=== PATIENT | male | born 1930 | race Caucasian/White ===

== ENCOUNTER → 2016-11-11 | Outpatient (REF) | payer MEDICARE, OTHER ==
[~2016-11-11] MED LIST: /ESOM40CA; /GLYB5TA; ACET30TAB PO; ACET65TA; ASPI81TA83; ASPI81TA85 PO; CLARINEX; CVS20TAB PO; DIAB5TAB; GLIP2.5T2 PO; GLUC500T; GLYB2.5T6; HYDR12.55 PO; HYDR25TA6; IMOD2TAB14 PO; JANU100T PO; K-TA1TAB PO; NITR4TASL SL; POTA20TA2; PRED10TA2; PROA1AER INH; SIMV20TA2; SIMV40TA2 PO; VITA500C
== END ==
LOC: M SFHCPLAZ 11:42
PROVIDERS: ATTEND Internal Medicine
DX: I10 Essential (primary) hypertension (principal); E11.9 Type 2 diabetes mellitus without complications; E78.00 Pure hypercholesterolemia, unspecified; Z53.8 Procedure and treatment not carried out for other reasons

== ENCOUNTER → 2016-11-21 | Outpatient (REF) | payer MEDICARE, OTHER ==
[~2016-11-21] MED LIST changes: -IMOD2TAB14 PO; +IMOD2TAB16 PO
[2016-11-21 13:58] LABS: CALCIUM LEVEL 8.9 MG/DL (8.8-10.2); CREATININE FOR GFR 1.45 MG/DL (0.70-1.30); GLOMERULAR FILTRATION RATE 49.2 (>35); POTASSIUM SERUM 4.3 MEQ/L (3.5-5.1)
[2016-11-21 13:59] LABS: ALBUMIN 3.9 GM/DL (3.2-5.2); ALBUMIN/GLOBULIN RATIO 1.22 (1.00-1.93); TOTAL PROTEIN 7.1 GM/DL (6.4-8.2)
== END ==
LOC: M SFHCPLAZ 09:33
PROVIDERS: ATTEND Internal Medicine
DX: I10 Essential (primary) hypertension (principal); E11.9 Type 2 diabetes mellitus without complications; E78.00 Pure hypercholesterolemia, unspecified

== ENCOUNTER → 2016-12-12 | Outpatient (CLI) | payer MEDICARE, OTHER ==
--- NOTE | 2016-12-12 15:07 | REP ---
RENAL AND BLADDER ULTRASOUND: Real-time sonographic evaluation of kidneys performed. Both kidneys are normal in size and echotexture, right kidney measuring 10.4 x 4.2 x 4.6, and left kidney 10.5 x 4.9 x 4.9 cm. There is no hydronephrosis bilaterally. There are cysts in the right kidney, with two dominant simple cysts in the upper pole measuring 3.9 x 3.6 x 3.9 cm and 2.1 x 1.8 x 1.6 cm. Left kidney demonstrates a solid mass in the upper pole. There is internal blood flow with duplex Doppler evaluation. The mass measures 3.8 x 4.2 x 3.1 cm. There is an adjacent simple cyst 1.9 cm in diameter. There is a simple cyst in the lower pole of the left kidney, 1.1 cm in diameter. Urinary bladder has a volume of 84 mL with no gross mass or calculus. Bilateral ureteral jets are seen in the urinary bladder with Doppler color evaluation. IMPRESSION: No hydronephrosis. Bilateral renal cysts. Solid mass upper pole left kidney suspicious for renal cell carcinoma. Maximum diameter is 4.2 cm. Signed by Gumaro Warner MD 12/13/2016 09:24 A
== END ==
LOC: M RAD 13:53
PROVIDERS: ATTEND Psychiatry & Neurology Neurology
DX: N28.1 Cyst of kidney, acquired (principal)

== ENCOUNTER 2016-12-22 21:11 | Observation (INO) | payer MEDICARE, OTHER ==
[~2016-12-22] VITALS: Ht 180.3 cm; Wt 75.8 kg
[2016-12-22 22:43] LABS: BASO # 0.1 K/mm3 (0.0-0.2); BASO % 1.3 % (0.0-1.0); EOS # 0.1 K/mm3 (0.0-0.50); EOS % 1.7 % (0.0-3.0); LARGE UNSTAINED CELL # 0.2 K/mm3 (0.0-0.4); LARGE UNSTAINED CELL % 2.8 % (0.0-4.0); LYMPH # 0.8 K/mm3 (1.5-4.5); LYMPH % 10.1 % (24.0-44.0); MEAN CORPUSCULAR HEMOGLOBIN 31.9 pg (27.0-33.0); MEAN CORPUSCULAR HGB CONC 34.9 g/dl (32.0-36.5); MEAN CORPUSCULAR VOLUME 91.5 fl (80.0-96.0); MONO # 0.5 K/mm3 (0.0-0.8); MONO % 9.3 % (0.0-5.0); NEUTROPHILS # 4.4 K/mm3 (1.8-7.7); NEUTROPHILS % 74.8 % (36.0-66.0); PLATELET COUNT, AUTOMATED 223 k/mm3 (150-450); RED CELL DISTRIBUTION WIDTH 13.4 % (11.5-14.5); WHITE BLOOD COUNT 5.8 K/mm3 (4.0-10.0)
[2016-12-22 22:58] LABS: ALBUMIN 3.5 GM/DL (3.2-5.2); ALBUMIN/GLOBULIN RATIO 1.13 (1.00-1.93); BILIRUBIN,DIRECT 0.2 MG/DL (0.0-0.2); BILIRUBIN,TOTAL 0.8 MG/DL (0.2-1.0); CALCIUM LEVEL 8.5 MG/DL (8.8-10.2); CREATININE FOR GFR 1.41 MG/DL (0.70-1.30); GLOMERULAR FILTRATION RATE 50.9 (>35); POTASSIUM SERUM 4.3 MEQ/L (3.5-5.1); TOTAL PROTEIN 6.6 GM/DL (6.4-8.2)
[2016-12-23] MEDS ORDERED: OSELTAMIVIR PHOSPHATE 75 MG CAP (TAMIFLU) As Ordered ONE (01:42)
[2016-12-23] MEDS ORDERED: BISACODYL 5 MG TAB PO PRN (02:00)
[2016-12-23] MEDS ORDERED: ACETAMINOPHEN TAB 650MG DOSE (2X325MG) PO PRN (02:00)
[2016-12-23] MEDS ORDERED: ONDANSETRON 4MG/2ML VIAL (J2405) IV PRN (02:00)
[2016-12-23] MEDS ORDERED: DEXTROSE 50% 50 ML SYRINGE IV PRN (02:30)
[2016-12-23] MEDS ORDERED: GLUCOSE 4 GM CHEW TABLET PO PRN (02:30)
[2016-12-23] MEDS ORDERED: GLUCAGON FOR INJ 1 MG VIAL (J1610) SC PRN (02:30)
[2016-12-23] MEDS ORDERED: ACETAMINOPHEN TAB 650MG DOSE (2X325MG) As Ordered ONE (02:38)
--- NOTE | 2016-12-23 03:01 | HPE ---
DATE OF ADMISSION: 12/23/2016 PRIMARY CARE PHYSICIAN: Cholo Alvarez MD. INPATIENT HOSPITALIST ATTENDING: Tyshawn Allan MD. CHIEF COMPLAINT: "I couldn't walk. I was so weak." HISTORY OF PRESENTING ILLNESS: 86-year-old male, history of type 2 diabetes, hypertension, hypercholesterolemia, reflux, appendectomy, cholecystectomy, active cigar use with a pipe, presents to the emergency room with complaints of generalized weakness, recurrent falls since monday, dry cough, and fatigue. In the emergency room (ER), was found to have a low-grade temperature of 100.4, not orthostatic with glucose of 176.. Respiratory panel was positive for influenza. Hospitalist service was called for admission. He otherwise denies any chills. He has had some decrease in appetite. No nausea, vomiting, diarrhea, chest pain, pressure, tightness, lightheadedness, syncope. Denies dysuria, urgency, frequency. No weight loss. No lumps and bumps. No history of depression or anxiety. PAST MEDICAL HISTORY: 1. Hypertension. 2. Diabetes. 3. Hypercholesterolemia. 4. Reflux disease. 5. Chronic renal insufficiency, baseline creatinine of 1.4. PAST SURGICAL HISTORY: 1. Appendectomy. 2. Cholecystectomy. ALLERGIES: No known drug allergies. 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 Lives with . Has cigar use, active smoker. FAMILY HISTORY: Noncontributory due to age. The patient is DO NOT RESUSCITATE. Healthcare proxy is Carly Lindsay. REVIEW OF SYSTEMS: Per history of present illness (HPI). PHYSICAL EXAMINATION: VITAL SIGNS: Blood pressure 153/61, pulse 78, respiratory rate 18, temperature 100.4, 97% on room air, 75.75 kg. GENERAL: Patient is awake, alert, oriented to person, answering questions appropriately. Anicteric sclerae. No jaundice. No pallor. Speaks in full sentences, unlabored breathing. Speaks fluently. No respiratory distress or use of respiratory accessory muscles. Dry mucous membranes. No jugular venous distention, thyromegaly or cervical lymphadenopathy. LUNGS: Clear to auscultation. No wheezing, rales or rhonchi. HEART: S1, S2, sinus rhythm. ABDOMEN: Soft, nontender, nondistended. Positive bowel sounds. EXTREMITIES: No cyanosis, clubbing or pitting edema. Gait was not tested due to significant weakness. Motor function 5/5 times two bilateral upper extremities. Lower extremities deep tendon reflexes (DTRs) intact 4+ bilaterally. LABORATORY DATA: White count 5.8, hemoglobin 12, hematocrit 36, platelet count 223, 74% neutrophils. Lactic acid 1.3. Sodium 137, potassium 4.3, chloride 103, bicarbonate 29, BUN 10, creatinine 1.41, glucose 176, calcium 8.5, anion gap of 5. Urinalysis negative leukocyte esterase, nitrite, 3+ glucose, 1+ protein, yellow, clear, pure, 0 WBCs, negative bacteria, 1+ blood. RSV panel positive for influenza A H3. IMAGING STUDIES: Preliminary report no acute infiltrates, edema or effusion. ASSESSMENT AND PLAN: This is an 86-year-old male, history of diabetes, hypertension, hypercholesterolemia, reflux, appendectomy, cholecystectomy, active cigar use with a pipe, presents to the emergency room with complaints of generalized weakness, unsteady balance and recurrent falls at home since Monday, low-grade fever, dry cough, generalized weakness, presented to the emergency room, was found to have influenza A H3. Hospitalist service was called to admit. Patient will be assigned to Dr. Tyshawn Allan 7 a.m. on 12/23/2016. 1. Influenza A H3. Patient will be given Tamiflu 75 mg by mouth twice a day. Droplet isolation precautions. Strict hand washing. Full supportive care. Oxygen if saturations are below 87%. Intravenous fluids. Physical therapy evaluation, to be evaluated with fall precautions. 2. Generalized weakness and recurrent falls secondary to influenza. Treat underlying illness, physical therapy and full supportive care. Fall precautions. 3. Type 2 diabetes. Consistent carbohydrate diet. Insulin sliding scale before food, nightly, fingersticks. Hyperglycemic protocol. Check A1c in the morning. 4. Hyperlipidemia. Check lipid panel in the morning. Resume home medications. 5. Hypertension, controlled. Baseline creatinine is 1.4. May resume home dose of angiotensin-converting enzyme (MASON) inhibitor. 6. Abnormal EKG with chronic first-degree atrioventricular (AV) block, sinus rhythm, bigeminal pattern, ventricular rate of 76. Check magnesium. Replete as needed. 7. Active cigar use. Smoking cessation, counseling. 8. Chronic Renal failure stage 3, at baseline creatinine. monitor urine output, renally dose all medications, avoid nephrotoxins. Deep venous thrombosis (DVT) prophylaxis with Lovenox renal dosing. MTDD
--- NOTE | 2016-12-23 04:31 | EDDOCDS ---
Physician Documentation [facility] Name: Gt Lindsay Age: 86 yrs Sex: Male : 1930 Arrival Date: 12/22/2016 Time: 21:11 Bed 8 Private MD: Te Graham MD Disposition: 12/23/16 01:48 Hospitalization ordered by Mabel Bennett for Inpatient Admission. Preliminary diagnosis is Influenza due to identified novel influenza A virus. - Bed requested for 4 [place]. - Status is Inpatient Admission. cz - Condition is Stable. - Problem is new. - Symptoms have improved. Historical: - Allergies: no known allergies; - Home Meds: 1. aspirin 81 mg Oral TbEC 1 tab once daily 2. glipizide-metformin 2.5-500 mg oral tab 2 tabs 2 times per day 3. hydrochlorothiazide 25 mg Oral tab 0.5 tab once daily 4. Januvia 100 mg oral tab 0.5 tab once daily 5. omeprazole 20 mg Oral TbEC 2 cap daily 6. potassium chloride 20 mEq Oral TbER 1 tab 2 times per day 7. simvastatin 40 mg Oral tab 1 tab once daily - PMHx: Diabetes - NIDDM: controlled; GERD; Hypercholesterolemia; Hypertension; - PSHx: Appendectomy; Cholecystectomy; - Social history: Smoking status: Patient uses tobacco products, light tobacco smoker. No barriers to communication noted, Speaks appropriately for age. - Family history: Not pertinent. - : The pt / caregiver states he / she is not on anticoagulants. Home medication list is obtained from the patient. - Exposure Risk Screening:: None identified. Vital Signs: 12/22 21:14 BP 153 / 61; Pulse 78; Resp 18 S; Temp 100.4(O); Pulse Ox 97% on R/A; Weight 75.75 kg / gr2 167 lbs (R); Height 5 ft. 11 in. (180.34 cm) (R); Pain 5/10; 21:57 BP 158 / 70 Supine; Pulse 75; ko2 21:57 BP 166 / 74 Sitting; Pulse 88; ko2 21:57 BP 155 / 67 Standing; Pulse 78; ko2 22:05 Pulse 72 MON; ko2 22:06 BP 148 / 67 (auto/); ko2 22:20 Pulse 74 MON; ko2 22:21 BP 153 / 72 (auto/); ko2 22:51 BP 135 / 65 (auto/); ko2 22:51 Pulse 74 MON; Pulse Ox 98% ; ko2 23:05 Pulse 74 MON; Pulse Ox 96% ; ko2 23:06 BP 164 / 67 (auto/); ko2 23:35 Pulse 72 MON; ko2 23:36 BP 152 / 66 (auto/); ko2 23:50 Pulse 74 MON; ko2 23:51 BP 147 / 67 (auto/); ko2 12/23 00:05 Pulse 76 MON; ko2 00:06 BP 152 / 67 (auto/); ko2 00:21 BP 148 / 63 (auto/); ko2 00:21 Pulse 72 MON; ko2 00:51 BP 146 / 80 (auto/); ko2 00:51 Pulse 74 MON; ko2 01:06 BP 140 / 65 (auto/); ko2 01:06 Pulse 74 MON; ko2 01:21 BP 141 / 65 (auto/); ko2 01:21 Pulse 72 MON; ko2 01:36 BP 131 / 60 (auto/); ko2 01:36 Pulse 74 MON; ko2 01:50 Pulse 76 MON; ko2 01:51 BP 141 / 66 (auto/); ko2 02:33 BP 137 / 63; Pulse 78; Resp 16; Temp 101.5(O); Pulse Ox 94% on R/A; Pain 0/10; ko2 04:26 BP 125 / 78; Pulse 79; Resp 16; Temp 98.5(O); Pulse Ox 97% ; Pain 0/10; ko2 12/22 21:14 Body Mass Index 23.29 (75.75 kg, 180.34 cm) gr2 MDM: 12/22 21:45 -Blood Culture (Adults Only), peripheral from different site, or from device/port/PICC le etc. if present ordered. 21:45 Floor Coverings Salesperson/Pulse Ox/q 15 min VS ordered. le 21:45 IV Saline Lock ordered. le 21:45 Orthostatic VS ordered. le 21:46 -Blood Culture Ordered. EDMS 21:46 C Reactive Protein Ordered. EDMS 21:46 CBC with Diff Ordered. EDMS 21:46 Lactic Acid (Warner tube on ice) Ordered. EDMS 21:46 Liver Profile Ordered. EDMS 21:46 MED Profile Ordered. EDMS 21:46 Urinalysis Ordered. EDMS 21:46 Urine Culture Ordered. EDMS 21:47 ECG WITH READING ER PHYS+CARDIAG ordered. EDMS 21:48 Chest, 2 View (pa\E\lat) Ordered. EDMS 21:48 -Blood Culture (Adults Only), peripheral from different site, or from device/port/PICC kb5 etc. if present complete. 21:49 BLOOD CULTURES Ordered. EDMS 22:15 Financial registration complete. [email or web address] 22:15 [facility] Payment Agreement was scanned into [employer] and attached to record. [email or web address] 22:19 [facility] Payment Agreement was scanned into [employer] and attached to record. [email or web address] 22:53 CBC with Diff Reviewed. le 23:24 C Reactive Protein Reviewed. le 23:24 MED Profile Reviewed. le 23:24 Lactic Acid (Warner tube on ice) Reviewed. le 23:24 Liver Profile Reviewed. le 23:35 Misc Time Signal Wirer Order ordered. le 23:41 Misc Time Signal Wirer Order complete. kb5 23:42 RESPIRATORY PANEL Ordered. EDMS 02 01:41 Urinalysis Reviewed. cs11 01:41 RESPIRATORY PANEL Reviewed. cs11 01:41 Oseltamivir 75 mg PO once ordered. cs11 01:44 NS 0.9% 500 ml IV at bolus once ordered. cs11 01:45 BED REQUEST+ADM ordered. EDMS 01:52 PHYSICAL THERAPY EVAL & TREAT ordered. EDMS 01:53 Admission / Observation Status ordered. EDMS 02:24 CONSISTENT CARBOHYDRATES ordered. EDMS 02:24 HEMOGLOBIN A1C Ordered. EDMS 02:26 BASIC METABOLIC PROFILE Ordered. EDMS 02:26 CBC WITH DIFFERENTIAL Ordered. EDMS 02:38 Acetaminophen Tablet 650 mg PO once ordered. ko2 Administered Medications: 01:52 Drug: NS 0.9% 500 ml [sodium chloride 0.9 % intravenous solution] Route: IV; Rate: ko2 bolus; Site: right forearm; 01:53 Drug: Oseltamivir 75 mg [oseltamivir 75 mg capsule (1 caps)] Route: PO; ko2 02:42 Drug: Acetaminophen 650 mg [acetaminophen 325 mg tablet (2 tabs)] Route: PO; ko2 Signatures: Dispatcher [employer] EDMS Jonathan Cortez, MELO RN Paco Grant, RUBBER CUTTING MACHINE TENDER RUBBER CUTTING MACHINE TENDER kb5 Sarah Archer FNP WHISKEY FILTERER Carolyn HemphillRN RN rs3 Darrel Duran, DO cs11 Rosario Luis RN RN ko2 Yadi Ayala, Reg Reg [email or web address] William Flood, RN MELO sa The chart was reviewed and I authenticate all verbal orders and agree with the evaluation and treatment provided.Corrections: (The following items were deleted from the chart) 12/22 23:26 Straight cath ordered. le kelly 12/23 01:53 NO ADDED SALT DIET ordered. EDMS EDMS 01:54 BASIC METABOLIC PROFILE ordered. EDMS EDMS 01:54 CBC WITH DIFFERENTIAL ordered. EDMS EDMS Attachments: 22:19 [facility] [place] Payment Agreement [email or web address] MTDD
--- NOTE | 2016-12-23 04:32 | EDDOCDS ---
Nurse's Notes [facility] Name: Gt Lindsay Age: 86 yrs Sex: Male : 1930 Arrival Date: 12/22/2016 Time: 21:11 Bed 8 Private MD: Te Graham MD Diagnosis: Influenza due to identified novel influenza A virus Presentation: 12/22 21:17 Presenting complaint: Patient states: fell twice this evening. bilateral leg weakness rs3 since this evening. Adult Sepsis Screening: The patient does not have new or worsening altered mentation. Patient's respiratory rate is less than 22. Systolic blood pressure is greater than 100. Patient has a qSOFA score of 0- Negative Sepsis Screen. Suicide/Homicide risk assessment- the patient denies having any suicidal and/or homicidal ideations and does not present with any other emotional, behavioral or mental health complaints. Status: Patient is not a customer service associate or dependent. Transition of care: patient was not received from another setting of care. 21:17 Acuity: SUSAN Level 3 rs3 21:17 Method Of Arrival: Wheelchair rs3 Triage Assessment: 21:20 General: Appears in no apparent distress. Pain: Denies pain. Musculoskeletal: Reports rs3 weakness in right leg and left leg. Historical: - Allergies: no known allergies; - Home Meds: 1. aspirin 81 mg Oral TbEC 1 tab once daily 2. glipizide-metformin 2.5-500 mg oral tab 2 tabs 2 times per day 3. hydrochlorothiazide 25 mg Oral tab 0.5 tab once daily 4. Januvia 100 mg oral tab 0.5 tab once daily 5. omeprazole 20 mg Oral TbEC 2 cap daily 6. potassium chloride 20 mEq Oral TbER 1 tab 2 times per day 7. simvastatin 40 mg Oral tab 1 tab once daily - PMHx: Diabetes - NIDDM: controlled; GERD; Hypercholesterolemia; Hypertension; - PSHx: Appendectomy; Cholecystectomy; - Social history: Smoking status: Patient uses tobacco products, light tobacco smoker. No barriers to communication noted, Speaks appropriately for age. - Family history: Not pertinent. - : The pt / caregiver states he / she is not on anticoagulants. Home medication list is obtained from the patient. - Exposure Risk Screening:: None identified. Screenin:31 Screening information is obtained from the patient. Fall risk: At risk due to prior ko2 history of falls, The following interventions are performed due to a positive Fall Risk Screen: Fall Risk is added to Special Handling on the patient Summary Screen. A Fall Risk Bracelet was applied to the patient. Side Rails are placed in the up position. A Call Ang is given with instruction to call for help when getting out of bed. Fall Alert bracelet is placed on the patient. Assistance ADL's: requires no assistance with activities of daily living. Abuse/DV Screen: The patient / caregiver reports he/she is: not in a situation that causes fear, pain or injury. Nutritional screening: No deficits noted. Advance Directives: Currently, there is a health care proxy, Carly Lindsay - . There is an active DNR order but there is no copy available at this time. There is no living will. There is no Power of Bright Cutter. home support is adequate. Assessment: 21:30 General: Appears in no apparent distress, comfortable, Behavior is appropriate for age, ko2 cooperative. Pain: Denies pain. Neurological: Level of Consciousness is awake, alert. Respiratory: Airway is patent Respiratory effort is even, unlabored. Derm: Skin is normal. Musculoskeletal: Range of motion intact in all extremities. pt states his legs are weak and he can't get them to do what he wants them to do. 22:34 General: Appears in no apparent distress, comfortable, Behavior is appropriate for age, ko2 cooperative. Pain: Denies pain. Neurological: Level of Consciousness is. Respiratory: Airway is patent Respiratory effort is even, unlabored. Derm: Skin is normal. 23:30 General: Appears in no apparent distress, comfortable, Behavior is appropriate for age, ko2 cooperative. Pain: Denies pain. Respiratory: Airway is patent Respiratory effort is even, unlabored. Derm: Skin is normal. 12/23 00:30 General: Appears in no apparent distress, comfortable, Behavior is appropriate for age, ko2 cooperative. Neurological: Level of Consciousness is awake, alert. Respiratory: Airway is patent Respiratory effort is even, unlabored. Derm: Skin is normal. 01:53 General: Appears in no apparent distress, comfortable, Behavior is appropriate for age, ko2 cooperative. Neurological: Level of Consciousness is awake, alert. Respiratory: Airway is patent Respiratory effort is even, unlabored. Derm: Skin is normal. 03:21 General: Appears in no apparent distress, comfortable, Behavior is appropriate for age, ko2 cooperative. Pain: Denies pain. Neurological: Level of Consciousness is awake, alert. Respiratory: Airway is patent Respiratory effort is even, unlabored. Derm: Skin is normal. 04:24 General: Appears in no apparent distress, comfortable, Behavior is appropriate for age, ko2 cooperative. Neurological: Level of Consciousness is awake, alert. Respiratory: Airway is patent Respiratory effort is even, unlabored. Derm: Skin is normal. Vital Signs: 12/22 21:14 BP 153 / 61; Pulse 78; Resp 18 S; Temp 100.4(O); Pulse Ox 97% on R/A; Weight 75.75 kg gr2 (R); Height 5 ft. 11 in. (180.34 cm) (R); Pain 5/10; 21:57 BP 158 / 70 Supine; Pulse 75; ko2 21:57 BP 166 / 74 Sitting; Pulse 88; ko2 21:57 BP 155 / 67 Standing; Pulse 78; ko2 22:05 Pulse 72 MON; ko2 22:06 BP 148 / 67 (auto/); ko2 22:20 Pulse 74 MON; ko2 22:21 BP 153 / 72 (auto/); ko2 22:51 BP 135 / 65 (auto/); ko2 22:51 Pulse 74 MON; Pulse Ox 98% ; ko2 23:05 Pulse 74 MON; Pulse Ox 96% ; ko2 23:06 BP 164 / 67 (auto/); ko2 23:35 Pulse 72 MON; ko2 23:36 BP 152 / 66 (auto/); ko2 23:50 Pulse 74 MON; ko2 23:51 BP 147 / 67 (auto/); ko2 12/23 00:05 Pulse 76 MON; ko2 00:06 BP 152 / 67 (auto/); ko2 00:21 BP 148 / 63 (auto/); ko2 00:21 Pulse 72 MON; ko2 00:51 BP 146 / 80 (auto/); ko2 00:51 Pulse 74 MON; ko2 01:06 BP 140 / 65 (auto/); ko2 01:06 Pulse 74 MON; ko2 01:21 BP 141 / 65 (auto/); ko2 01:21 Pulse 72 MON; ko2 01:36 BP 131 / 60 (auto/); ko2 01:36 Pulse 74 MON; ko2 01:50 Pulse 76 MON; ko2 01:51 BP 141 / 66 (auto/); ko2 02:33 BP 137 / 63; Pulse 78; Resp 16; Temp 101.5(O); Pulse Ox 94% on R/A; Pain 0/10; ko2 04:26 BP 125 / 78; Pulse 79; Resp 16; Temp 98.5(O); Pulse Ox 97% ; Pain 0/10; ko2 12/22 21:14 Body Mass Index 23.29 (75.75 kg, 180.34 cm) gr2 Vitals: 12/22 21:14 Log In Time: December 22, 2016 at 21:14. gr2 ED Course: 21:13 Patient visited by Cory Russell. gr2 21:13 Patient moved to Waiting gr2 21:14 Te Graham is Private Physician. gr2 21:15 Patient visited by Cory Russell. gr2 21:15 Patient moved to Pre RCE gr2 21:19 Triage Initiated rs3 21:22 Alec Crabtree, MELO is Primary Nurse. cz 21:22 Rosario Luis RN is Primary Nurse. cz 21:22 Patient moved to 8 cz 21:25 [facility] le 21:30 Patient visited by Sarah Archer FNP. le 21:35 Patient visited by Sarah Archer FNP. le 22:15 [facility] [place] Payment Agreement was scanned into [employer] and attached to record. ks16 22:18 [facility] [place] Payment Agreement was scanned into [employer] and attached to record. ks16 22:23 Primary Nurse role handed off by Alec Crabtree RN rs6 22:23 Patient visited by Abel Sánchez PCA. mdr 22:23 EKG done. (by ED staff). Reviewed by Sarah ALARCON. mdr 22:34 The patient / caregiver is instructed regarding the plan of care and ED course. ko2 22:34 BLOOD CULTURES Sent. ko2 22:34 -Blood Culture Sent. ko2 22:34 Inserted saline lock: 20 gauge in right antecubital area and blood collected. The ko2 patient tolerated the procedure well. 22:35 Patient visited by Rosario Luis,MELO. ko2 23:25 Patient visited by Rosario Luis RN. ko2 23:28 Urine Culture Sent. mdr 23:28 Urinalysis Sent. mdr 23:43 RESPIRATORY PANEL Sent. [facility] [place] 12/23 00:07 Darrel Duran DO is Attending Physician. cs11 00:31 Patient visited by Rosario Luis RN. ko2 01:31 Patient visited by Rosario Luis RN. ko2 01:48 Mabel Bennett is Hospitalizing Provider. cs11 01:53 Patient visited by Rosario Luis RN. ko2 03:22 No procedures done that require assistance. ko2 Administered Medications: 01:52 Drug: NS 0.9% 500 ml [sodium chloride 0.9 % intravenous solution] Route: IV; Rate: ko2 bolus; Site: right forearm; 01:53 Drug: Oseltamivir 75 mg [oseltamivir 75 mg capsule (1 caps)] Route: PO; ko2 02:42 Drug: Acetaminophen 650 mg [acetaminophen 325 mg tablet (2 tabs)] Route: PO; ko2 Order Results: Lab Order: C Reactive Protein; SPEC'M 12/22/16 22:27 Test: C REACTIVE PROTEIN QUANTITATIV; Value: 3.45; Range: 0.00-0.30; Abnormal: Above high normal; Units: MG/DL; Status: F Lab Order: CBC with Diff; SPEC'M 12/22/16 22:27 Test: WHITE BLOOD COUNT; Value: 5.8; Range: 4.0-10.0; Units: K/mm3; Status: F Test: RED BLOOD COUNT; Value: 4.03; Range: 4.30-6.10; Abnormal: Below low normal; Units: M/mm3; Status: F Test: HEMOGLOBIN; Value: 12.9; Range: 14.0-18.0; Abnormal: Below low normal; Units: g/dl; Status: F Test: HEMATOCRIT; Value: 36.9; Range: 42.0-52.0; Abnormal: Below low normal; Units: %; Status: F Test: MEAN CORPUSCULAR VOLUME; Value: 91.5; Range: 80.0-96.0; Units: fl; Status: F Test: MEAN CORPUSCULAR HEMOGLOBIN; Value: 31.9; Range: 27.0-33.0; Units: pg; Status: F Test: MEAN CORPUSCULAR HGB CONC; Value: 34.9; Range: 32.0-36.5; Units: g/dl; Status: F Test: RED CELL DISTRIBUTION WIDTH; Value: 13.4; Range: 11.5-14.5; Units: %; Status: F Test: PLATELET COUNT, AUTOMATED; Value: 223; Range: 150-450; Units: k/mm3; Status: F Test: NEUTROPHILS %; Value: 74.8; Range: 36.0-66.0; Abnormal: Above high normal; Units: %; Status: F Test: LYMPH %; Value: 10.1; Range: 24.0-44.0; Abnormal: Below low normal; Units: %; Status: F Test: MONO %; Value: 9.3; Range: 0.0-5.0; Abnormal: Above high normal; Units: %; Status: F Test: EOS %; Value: 1.7; Range: 0.0-3.0; Units: %; Status: F Test: BASO %; Value: 1.3; Range: 0.0-1.0; Abnormal: Above high normal; Units: %; Status: F Test: LARGE UNSTAINED CELL %; Value: 2.8; Range: 0.0-4.0; Units: %; Status: F Test: NEUTROPHILS #; Value: 4.4; Range: 1.8-7.7; Units: K/mm3; Status: F Test: LYMPH #; Value: 0.8; Range: 1.5-4.5; Abnormal: Below low normal; Units: K/mm3; Status: F Test: MONO #; Value: 0.5; Range: 0.0-0.8; Units: K/mm3; Status: F Test: EOS #; Value: 0.1; Range: 0.0-0.50; Units: K/mm3; Status: F Test: BASO #; Value: 0.1; Range: 0.0-0.2; Units: K/mm3; Status: F Test: LARGE UNSTAINED CELL #; Value: 0.2; Range: 0.0-0.4; Units: K/mm3; Status: F Lab Order: Lactic Acid (Warner tube on ice); SPEC'M 12/22/16 22:27 Test: LACTIC ACID SEPSIS PROTOCOL; Value: 1.3; Range: 0.4-2.0; Units: MMOL/L; Status: F Lab Order: Liver Profile; SPEC'M 12/22/16 22:27 Test: AST/SGOT; Value: 19; Range: 15-37; Units: U/L; Status: F Test: ALT/SGPT; Value: 21; Range: 12-78; Units: U/L; Status: F Test: ALKALINE PHOSPHATASE; Value: 81; Range: 45-117; Units: U/L; Status: F Test: BILIRUBIN,TOTAL; Value: 0.8; Range: 0.2-1.0; Units: MG/DL; Status: F Test: BILIRUBIN,DIRECT; Value: 0.2; Range: 0.0-0.2; Units: MG/DL; Status: F Test: TOTAL PROTEIN; Value: 6.6; Range: 6.4-8.2; Units: GM/DL; Status: F Test: ALBUMIN; Value: 3.5; Range: 3.2-5.2; Units: GM/DL; Status: F Test: ALBUMIN/GLOBULIN RATIO; Value: 1.13; Range: 1.00-1.93; Status: F Lab Order: MED Profile; SPEC'M 12/22/16 22: Test: GLUCOSE, FASTING; Value: 176; Range: 83-110; Abnormal: Above high normal; Units: MG/DL; Status: F Test: BLOOD UREA NITROGEN; Value: 10; Range: 7-18; Units: MG/DL; Status: F Test: CREATININE FOR GFR; Value: 1.41; Range: 0.70-1.30; Abnormal: Above high normal; Units: MG/DL; Status: F Test: GLOMERULAR FILTRATION RATE; Value: 50.9; Range: >35; Status: F Test: SODIUM LEVEL; Value: 137; Range: 136-145; Units: MEQ/L; Status: F Test: POTASSIUM SERUM; Value: 4.3; Range: 3.5-5.1; Units: MEQ/L; Status: F Test: CHLORIDE LEVEL; Value: 103; Range: 98-107; Units: MEQ/L; Status: F Test: CARBON DIOXIDE LEVEL; Value: 29; Range: 21-32; Units: MEQ/L; Status: F Test: ANION GAP; Value: 5; Range: 8-16; Abnormal: Below low normal; Units: MEQ/L; Status: F Test: CALCIUM LEVEL; Value: 8.5; Range: 8.8-10.2; Abnormal: Below low normal; Units: MG/DL; Status: F Test Note: ; Units are mL/min/1.73 m2 Chronic Kidney Disease Staging per NKF: Stage I & II GFR >=60 Normal to Mildly Decreased Stage III GFR 30-59 Moderately Decreased Stage IV GFR 15-29 Severely Decreased Stage V GFR <15 Very Little GFR Left ESRD GFR <15 on CONTINUING EDUCATION DEAN Lab Order: Urinalysis; SPEC'M 12/22/16 23:24 Test: APPEARANCE, URINE; Value: CLEAR; Range: CLEAR; Status: F Test: COLOR, URINE; Value: YELLOW; Range: YELLOW; Status: F Test: PH,URINE; Value: 5.0; Range: 5.0-9.0; Units: UNITS; Status: F Test: SPECIFIC GRAVITY URINE AUTO; Value: 1.020; Range: 1.002-1.035; Status: F Test: PROTEIN, URINE AUTO; Value: 1+; Range: NEGATIVE; Abnormal: Above high normal; Units: mg/dL; Status: F Test: GLUCOSE, URINE (UA) AUTO; Value: 3+; Range: NEGATIVE; Abnormal: Above high normal; Units: mg/dL; Status: F Test: KETONE, URINE AUTO; Value: NEGATIVE; Range: NEGATIVE; Units: mg/dL; Status: F Test: UROBILINOGEN, URINE AUTO; Value: 0.2; Range: 0.0-2.0; Units: mg/dL; Status: F Test: BILIRUBIN, URINE AUTO; Value: NEGATIVE; Range: NEGATIVE; Status: F Test: NITRITE, URINE AUTO; Value: NEGATIVE; Range: NEGATIVE; Status: F Test: LEUKOCYTE ESTERASE, URINE AUTO; Value: NEGATIVE; Range: NEGATIVE; Status: F Test: BLOOD, URINE BLOOD; Value: 1+; Range: NEGATIVE; Abnormal: Above high normal; Status: F Test: WBC, URINE AUTO; Value: 0; Range: 0-3; Units: /HPF; Status: F Test: RBC, URINE AUTO; Value: 2; Range: 0-3; Units: /HPF; Status: F Test: BACTERIA, URINE AUTO; Value: NEGATIVE; Range: NEGATIVE; Status: F Test: SQUAMOUS EPITHELIAL CELL UR AU; Value: 0; Range: 0-6; Units: /HPF; Status: F Test: MUCUS, URINE; Value: SMALL; Range: NEGATIVE; Status: F Test: HYALINE CAST, URINE AUTO; Value: 0; Range: 0-1; Units: /LPF; Status: F Lab Order: RESPIRATORY PANEL; SPEC'M 12/22/16 23:41 Test: RESPIRATORY PANEL; Value: RP PANEL RESULT POSITIVE by PCR; Abnormal: Abnormal; Status: F Test: RESPIRATORY PANEL; Value: Comments:; Status: F Test: RESPIRATORY PANEL; Value: ORGANISM 1: INFLUENZA A H3; Status: F Test: RESPIRATORY PANEL; Value: INFLUENZA A H3; Status: F Test: RESPIRATORY PANEL; Value: Influenza H3 1 Influenza causes upper respiratory tract infections; Status: F Test: RESPIRATORY PANEL; Value: Influenza H3 10 Influenza A1H3.; Status: F Test: RESPIRATORY PANEL; Value: Influenza H3 2 with rapid onset of fever. During annual Influenza; Status: F Test: RESPIRATORY PANEL; Value: Influenza H3 3 epidemics, 5-20% of the population is affected.; Status: F Test: RESPIRATORY PANEL; Value: Influenza H3 4 Complications with viral or bacterial pneumonia; Status: F Test: RESPIRATORY PANEL; Value: Influenza H3 5 increase mortality from Influenza infections. There; Status: F Test: RESPIRATORY PANEL; Value: Influenza H3 6 are currently at least four antiviral medications; Status: F Test: RESPIRATORY PANEL; Value: Influenza H3 7 available for Influenza treatment (amantadine,; Status: F Test: RESPIRATORY PANEL; Value: Influenza H3 8 rimantadine, zanamivir and oseltamivir). More severe; Status: F Test: RESPIRATORY PANEL; Value: Influenza H3 9 disease and increased mortality are associated with; Status: F Test Note: ; This respiratory PCR panel detects Influenza A H1, H3 and 2009 H1 viruses, Influenza B virus, Respiratory syncytial virus, Human metapneumovirus, Parainfluenza virus 1, 2, 3 and 4, Adenovirus, Rhinovirus/Enterovirus, Coronavirus HKU1, NL63, OC43 and 229E, Bordetella pertussis, Mycoplasma pneumoniae and Chlamydia pneumoniae. Lab Order: HEMOGLOBIN A1C; SPEC'M 02/23/17 22:27 Test: HEMOGLOBIN A1c; Value: 6.2; Range: 4.5-6.2; Units: %; Status: F Test: ESTIMATED AVERAGE GLUCOSE; Value: 131; Range: 60-110; Abnormal: Above high normal; Units: MG/DL; Status: F Outcome: 01:48 Decision to Hospitalize by Provider. cs11 02:43 No special radiology studies were completed. ko2 02:44 Admission hand-off: Report Faxed Fax receipt verified by Jayda Auguste RN. ko2 04:24 Discharge Assessment: Patient awake, alert and oriented x 3. No cognitive and/or ko2 functional deficits noted. Patient verbalized understanding of disposition instructions. patient administered narcotics - no. The following High Risk Discharge criteria are identified: None. Admitted to Floor accompanied by tech, via stretcher, with chart. Condition: stable. Property :Personal belongings accompany Pt. 04:30 Patient left the ED. cz Signatures: Jonathan Cortez RN RN cz Sarah Archer, GAS ROLLER OPERATOR GAS ROLLER OPERATOR Carolyn Hemphill RN RN rs3 Darrel Duran, DO DO cs11 Cory Russell gr2 Catherine CastRN Rosario Harper RN RN ko2 Sindi Banks, HEARING AID DISPENSER HEARING AID DISPENSER rs6 Abel Sánchez, HEARING AID DISPENSER HEARING AID DISPENSER Yadi Mckeon, Reg Reg ks16 MTDD
[2016-12-23 04:35] VITALS: BP 131/61
[2016-12-23] MEDS: NS 1,000 ML IV SCH ×2 (05:20→16:20)
[2016-12-23 06:29] LABS: BASO % 0.7 % (0.0-1.0); EOS # 0.1 K/mm3 (0.0-0.50); EOS % 1.3 % (0.0-3.0); LARGE UNSTAINED CELL # 0.1 K/mm3 (0.0-0.4); LARGE UNSTAINED CELL % 2.2 % (0.0-4.0); LYMPH # 0.9 K/mm3 (1.5-4.5); LYMPH % 16.5 % (24.0-44.0); MEAN CORPUSCULAR HEMOGLOBIN 32.5 pg (27.0-33.0); MEAN CORPUSCULAR HGB CONC 35.3 g/dl (32.0-36.5); MONO # 0.4 K/mm3 (0.0-0.8); MONO % 9.3 % (0.0-5.0); NEUTROPHILS # 3.3 K/mm3 (1.8-7.7); PLATELET COUNT, AUTOMATED 199 k/mm3 (150-450); RED CELL DISTRIBUTION WIDTH 13.3 % (11.5-14.5); WHITE BLOOD COUNT 4.7 K/mm3 (4.0-10.0)
[2016-12-23] MEDS ORDERED: CITA20TA4 PO (06:36)
[2016-12-23] MEDS ORDERED: OMEP20CA3 PO (06:36)
[2016-12-23] MEDS ORDERED: HYDR25TAB PO (06:36)
[2016-12-23] MEDS ORDERED: DONE5TAB17 PO (06:36)
[2016-12-23 06:50] LABS: CALCIUM LEVEL 8.1 MG/DL (8.8-10.2); CREATININE FOR GFR 1.35 MG/DL (0.70-1.30); GLOMERULAR FILTRATION RATE 53.5 (>35); POTASSIUM SERUM 3.8 MEQ/L (3.5-5.1)
[2016-12-23] MEDS: HumaLOG INSULIN (NovoLOG) PER UNIT SC SCH ×3 (07:30→16:27)
[2016-12-23] MEDS: OSELTAMIVIR PHOSPHATE 75 MG CAP (TAMIFLU) PO SCH ×2 (07:52→20:52)
[2016-12-23] MEDS: ENOXAPARIN 30 MG/0.3 ML SYR (J1650) SC SCH (07:52)
--- NOTE | 2016-12-23 07:53 | REP ---
Clinical: Cough and shortness of breath . Comparison: 07/22/2016 . Technique: AP and lateral. Findings: The mediastinum and cardiac silhouette are normal. The lung coronado are clear and without acute consolidation, effusion, or pneumothorax. The skeletal structures are intact and normal. Impression: 1. No acute cardiopulmonary process. Signed by Jacoby Child MD 12/23/2016 07:45 A
[2016-12-23] MEDS ORDERED: ARIC10TA PO (08:21)
[2016-12-23 14:00] VITALS: BP 125/59
--- NOTE | 2016-12-23 15:16 | REP ---
Clinical: Trauma. Comparison: 07/22/2016 . Findings: Age-related atrophy and microvascular ischemic changes are appreciated. The ventricles and sulci are symmetric. Warner-white differentiation is maintained. There is no evidence for acute intracranial hemorrhage, mass/mass effect, pathology or infarction. No extra-axial fluid collection. Calvarium is intact. Paranasal sinuses and mastoid air cells are clear. Impression: Age related atrophy and microvascular ischemic changes. No acute intracranial hemorrhage, infarction, or mass/mass effect. Signed by Jacoby Child MD 12/23/2016 03:07 P
[2016-12-23 21:00] VITALS: BP 163/73
[2016-12-23] MEDS ORDERED: HumaLOG INSULIN (NovoLOG) PER UNIT SC SCH (21:00)
[2016-12-24 05:35] VITALS: BP 147/82
[2016-12-24 06:30] LABS: MAGNESIUM LEVEL 1.6 MG/DL (1.8-2.4)
--- NOTE | 2016-12-24 07:19 | ECGEPIP ---
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
[2016-12-24] MEDS: HumaLOG INSULIN (NovoLOG) PER UNIT SC SCH (08:32)
[2016-12-24] MEDS: MAG SULF 1GM/100ML (MAG RUN) 1 GM in APPROPRIATE DILUENT 1 EA IV SCH ×2 (08:33→09:41)
[2016-12-24] MEDS: ENOXAPARIN 30 MG/0.3 ML SYR (J1650) SC SCH (08:33)
[2016-12-24] MEDS: OSELTAMIVIR PHOSPHATE 75 MG CAP (TAMIFLU) PO SCH (08:33)
[2016-12-24] MEDS ORDERED: OSEL75CA2 PO (09:32)
[2016-12-24] MEDS ORDERED: OSEL75CA PO (13:00)
--- NOTE | 2016-12-24 13:08 | DS.PDOC ---
Discharge Summary General Date of Admission Dec 23, 2016 at 01:47 Date of Discharge Dec 24, 2016 at 12:29 Discharge Summary PROCEDURES PERFORMED DURING STAY: None. COMPLICATIONS/CHIEF COMPLAINT: Influenza A ADMISSION/DISCHARGE DIAGNOSES: 1. Generalized weakness and frequent falls 2. Influenza A H3 3. Type 2 diabetes mellitus 4. Hypertension 5. Hyperlipidemia 6. Active cigar use 7. CK D stage III HISTORY OF PRESENT ILLNESS/HOSPITAL COURSE: Ana is a 86-year-old male past history of diabetes, hypertension, hyperlipidemia, CKD who presents complaining of generalized weakness and frequent falls. Patient states this all started on Monday when he developed dry cough, generalized weakness, fatigue, low-grade temporal 100.4. Patient's states that' s given his generalized weakness he has fallen a few times and has struck the back of his head once. Patient's denies any chest pain/shortness of breath/ palpitations. No syncopal episodes. No seizure activity. Patient was found to have influenza A was started on Tamiflu. Patient was also evaluated by physical therapy and found to be safe for discharge home. Patient states his strength has significantly improved. Denies any focal weakness. CT of the head negative for acute findings. Patient is hemodynamically stable and ready to be discharged home. DISCHARGE MEDICATIONS: Please see below. ALLERGIES: Please see below. PHYSICAL EXAMINATION ON DISCHARGE: Vitals: (see below) General: No acute distress, laying comfortably in bed. HEENT: Moist mucous membranes. Neck: No JVD or lymphadenopathy Cardiac: RRR, No murmurs Pulm: Diminished breath sounds b/l bases. No wheezing, rhonchi Abd: NT/ND + BS Ext: No edema or cyanosis Neuro: Strength 5/5 BUE and BLE. CN 2-12 intact. LABORATORY DATA: Please see below. IMAGING: CT head on 12/23/16 Impression: Age related atrophy and microvascular ischemic changes. No acute intracranial hemorrhage, infarction, or mass/mass effect. Chest x-ray in 12/23/16 Impression: 1. No acute cardiopulmonary process. VTE Prophylaxis ordered?: Yes DISCHARGE CONDITION: Stable. DISPOSITION: Home ACTIVITY: As tolerated DIET: Carb consistent DISCHARGE PLAN AND INSTRUCTIONS: 1. F/u with PCP in 1-2 weeks. TIME SPENT ON DISCHARGE: Greater than 30 minutes. Vital Signs/I&Os Vital Signs Date Time Temp Pulse Resp B/P Pulse Ox O2 Delivery O2 Flow Rate FiO2 12/24/16 05:35 96.8 66 17 147/82 94 Room Air I&O- Last 24 Hours up to 6 AM 12/24/16 06:00 Intake Total 2520 ml Output Total 875 ml Balance 1645 ml Laboratory Data Labs 24H Laboratory Tests 2 12/23/16 16:25: 12/23/16 20:04: Bedside Glucose (Misc Panel) 144H 12/24/16 05:38: C-Reactive Protein, Quantitative 4.43H, Triglycerides Level 99, Cholesterol Level 107, HDL Cholesterol 39L, LDL Cholesterol 48.2, Cholesterol/HDL Ratio 2.743, Magnesium Level 1.6L, Non-HDL Cholesterol (LDL + VLDL) 68 12/24/16 06:12: Bedside Glucose (Misc Panel) 123H FSBS Laboratory Tests Test 12/23/16 16:25 12/23/16 20:04 12/24/16 06:12 Range/Units Bedside Glucose (Misc Panel) 144 123 83-110 MG/DL Microbiology Microbiology 12/22/16 Blood Culture - Preliminary, Resulted No growth after 24 hours . All specim... 12/22/16 Blood Culture - Preliminary, Resulted No growth after 24 hours . All specim... 12/22/16 Respiratory Virus Panel (PCR) (ALLY) - Final, Complete Influenza A H3 12/22/16 Urine Culture - Final, Complete Medications Scheduled (Glipizide/Metformin HCl 2.5-500 mg) 1 Tab Tab 1 TAB PO BID (Reported) Aspirin (Aspir-81) 81 Mg Tab 162 MG PO DAILY (Reported) Citalopram Hydrobromide (Citalopram Hydrobromide) 20 Mg Tab 20 MG PO DAILY ( Reported) Donepezil Hydrochloride (Aricept) 10 Mg Tab 10 MG PO DAILY (Reported) Hydrochlorothiazide (Hydrochlorothiazide) 25 Mg Tab 12.5 MG PO DAILY (Reported ) Omeprazole (Omeprazole) 20 Mg Cap 40 MG PO DAILY (Reported) Oseltamivir Phosphate (Oseltamivir Phosphate) 75 Mg Cap 75 MG PO BID Potassium Chloride (K-Tab) 20 Meq Tab 20 MEQ PO BID (Reported) Simvastatin - High Dose (Simvastatin) 40 Mg Tab 40 MG PO QHS (Reported) Sitagliptin Phosphate (Januvia) 100 Mg Tab 50 MG PO DAILY (Reported) Scheduled PRN Acetaminophen/Codeine (Tylenol/Codeine #3) Tab 1 TAB PO Q6H PRN PRN PAIN ( Reported) Loperamide Hcl (Imodium A-D) 2 Mg Tab 2 MG PO PRN PRN PRN DIARRHEA (Reported) Nitroglycerin (Nitrostat) 0.4 Mg Subl 0.4 MG SL NITRO PRN PRN ANGINA (Reported) Allergies Coded Allergies: Aminoglycosides (Unverified Allergy, Mild, RASH, 01/29/13) Bacitracin (Unverified Allergy, Mild, RASH, 01/29/13) Neomycin (Unverified Allergy, Mild, RASH, 01/29/13) Polymyxin B (Unverified Allergy, Mild, RASH, 01/29/13) MASON Inhibitors (Unverified Allergy, Unknown, UNKNOWN, 01/29/13) Angiotensin Receptor Blockers (Verified Allergy, Unknown, 01/29/13) Lisinopril (Verified Allergy, Unknown, 01/29/13) CHRISTY BRUMFIELD MD Dec 24, 2016 13:08
--- NOTE | 2016-12-25 05:30 | EDDOCDS ---
Physician Documentation [facility] Name: Gt Lindsay Age: 86 yrs Sex: Male : 1930 Arrival Date: 12/22/2016 Time: 21:11 Bed 8 Private MD: Te Graham MD Disposition: 12/23/16 01:48 Hospitalization ordered by Mabel Bennett for Inpatient Admission. Preliminary diagnosis is Influenza due to identified novel influenza A virus. - Bed requested for 4 [place]. - Status is Inpatient Admission. cz - Condition is Stable. - Problem is new. - Symptoms have improved. Historical: - Allergies: no known allergies; - Home Meds: 1. aspirin 81 mg Oral TbEC 1 tab once daily 2. glipizide-metformin 2.5-500 mg oral tab 2 tabs 2 times per day 3. hydrochlorothiazide 25 mg Oral tab 0.5 tab once daily 4. Januvia 100 mg oral tab 0.5 tab once daily 5. omeprazole 20 mg Oral TbEC 2 cap daily 6. potassium chloride 20 mEq Oral TbER 1 tab 2 times per day 7. simvastatin 40 mg Oral tab 1 tab once daily - PMHx: Diabetes - NIDDM: controlled; GERD; Hypercholesterolemia; Hypertension; - PSHx: Appendectomy; Cholecystectomy; - Social history: Smoking status: Patient uses tobacco products, light tobacco smoker. No barriers to communication noted, Speaks appropriately for age. - Family history: Not pertinent. - : The pt / caregiver states he / she is not on anticoagulants. Home medication list is obtained from the patient. - Exposure Risk Screening:: None identified. Vital Signs: 12/22 21:14 BP 153 / 61; Pulse 78; Resp 18 S; Temp 100.4(O); Pulse Ox 97% on R/A; Weight 75.75 kg / gr2 167 lbs (R); Height 5 ft. 11 in. (180.34 cm) (R); Pain 5/10; 21:57 BP 158 / 70 Supine; Pulse 75; ko2 21:57 BP 166 / 74 Sitting; Pulse 88; ko2 21:57 BP 155 / 67 Standing; Pulse 78; ko2 22:05 Pulse 72 MON; ko2 22:06 BP 148 / 67 (auto/); ko2 22:20 Pulse 74 MON; ko2 22:21 BP 153 / 72 (auto/); ko2 22:51 BP 135 / 65 (auto/); ko2 22:51 Pulse 74 MON; Pulse Ox 98% ; ko2 23:05 Pulse 74 MON; Pulse Ox 96% ; ko2 23:06 BP 164 / 67 (auto/); ko2 23:35 Pulse 72 MON; ko2 23:36 BP 152 / 66 (auto/); ko2 23:50 Pulse 74 MON; ko2 23:51 BP 147 / 67 (auto/); ko2 12/23 00:05 Pulse 76 MON; ko2 00:06 BP 152 / 67 (auto/); ko2 00:21 BP 148 / 63 (auto/); ko2 00:21 Pulse 72 MON; ko2 00:51 BP 146 / 80 (auto/); ko2 00:51 Pulse 74 MON; ko2 01:06 BP 140 / 65 (auto/); ko2 01:06 Pulse 74 MON; ko2 01:21 BP 141 / 65 (auto/); ko2 01:21 Pulse 72 MON; ko2 01:36 BP 131 / 60 (auto/); ko2 01:36 Pulse 74 MON; ko2 01:50 Pulse 76 MON; ko2 01:51 BP 141 / 66 (auto/); ko2 02:33 BP 137 / 63; Pulse 78; Resp 16; Temp 101.5(O); Pulse Ox 94% on R/A; Pain 0/10; ko2 04:26 BP 125 / 78; Pulse 79; Resp 16; Temp 98.5(O); Pulse Ox 97% ; Pain 0/10; ko2 12/22 21:14 Body Mass Index 23.29 (75.75 kg, 180.34 cm) gr2 MDM: 12/22 21:45 -Blood Culture (Adults Only), peripheral from different site, or from device/port/PICC le etc. if present ordered. 21:45 Occupational Psychologist/Pulse Ox/q 15 min VS ordered. le 21:45 IV Saline Lock ordered. le 21:45 Orthostatic VS ordered. le 21:46 -Blood Culture Ordered. EDMS 21:46 C Reactive Protein Ordered. EDMS 21:46 CBC with Diff Ordered. EDMS 21:46 Lactic Acid (Warner tube on ice) Ordered. EDMS 21:46 Liver Profile Ordered. EDMS 21:46 MED Profile Ordered. EDMS 21:46 Urinalysis Ordered. EDMS 21:46 Urine Culture Ordered. EDMS 21:47 ECG WITH READING ER PHYS+CARDIAG ordered. EDMS 21:48 Chest, 2 View (pa\E\lat) Ordered. EDMS 21:48 -Blood Culture (Adults Only), peripheral from different site, or from device/port/PICC kb5 etc. if present complete. 21:49 BLOOD CULTURES Ordered. EDMS 22:15 Financial registration complete. [id number] 22:15 [facility] Payment Agreement was scanned into [employer] and attached to record. [email or web address] 22:19 [facility] Payment Agreement was scanned into [employer] and attached to record. ks16 22:53 CBC with Diff Reviewed. le 23:24 C Reactive Protein Reviewed. le 23:24 MED Profile Reviewed. le 23:24 Lactic Acid (Warner tube on ice) Reviewed. le 23:24 Liver Profile Reviewed. le 23:35 Misc [employer] Assistant Principal Order ordered. le 23:41 Misc [employer] Assistant Principal Order complete. kb5 23:42 RESPIRATORY PANEL Ordered. EDMS 0224 01:41 Urinalysis Reviewed. cs11 01:41 RESPIRATORY PANEL Reviewed. cs11 01:41 Oseltamivir 75 mg PO once ordered. cs11 01:44 NS 0.9% 500 ml IV at bolus once ordered. cs11 01:45 BED REQUEST+ADM ordered. EDMS 01:52 PHYSICAL THERAPY EVAL & TREAT ordered. EDMS 01:53 Admission / Observation Status ordered. EDMS 02:24 CONSISTENT CARBOHYDRATES ordered. EDMS 02:24 HEMOGLOBIN A1C Ordered. EDMS 02:26 BASIC METABOLIC PROFILE Ordered. EDMS 02:26 CBC WITH DIFFERENTIAL Ordered. EDMS 02:38 Acetaminophen Tablet 650 mg PO once ordered. ko2 20:36 T-Sheet-- Draft Copy was scanned into [employer] and attached to record. klr Administered Medications: 01:52 Drug: NS 0.9% 500 ml [sodium chloride 0.9 % intravenous solution] Route: IV; Rate: ko2 bolus; Site: right forearm; 01:53 Drug: Oseltamivir 75 mg [oseltamivir 75 mg capsule (1 caps)] Route: PO; ko2 02:42 Drug: Acetaminophen 650 mg [acetaminophen 325 mg tablet (2 tabs)] Route: PO; ko2 Signatures: Dispatcher [employer] EDMS Jonathan Cortez RN RN cz Paco Cruz, FLAKE CUTTER OPERATOR FLAKE CUTTER OPERATOR kb5 Sarah Archer, DINKING MACHINE OPERATOR DINKING MACHINE OPERATOR Carolyn Hemphill RN RN rs3 Darrel Duran, DO cs11 Rosario LuisRN RN ko2 Lucy Yadi, Reg Reg ks16 [place], [place] klr William Flood RN RN sa The chart was reviewed and I authenticate all verbal orders and agree with the evaluation and treatment provided.Corrections: (The following items were deleted from the chart) 12/22 23:26 Straight cath ordered. le le 12/23 02: 01:53 NO ADDED SALT DIET ordered. EDMS EDMS 01:54 BASIC METABOLIC PROFILE ordered. EDMS EDMS 01:54 CBC WITH DIFFERENTIAL ordered. EDMS EDMS Attachments: 22:19 [facility] Payment Agreement [email or web address] 12/23 20:36 T-Sheet-- Draft Copy klr Chart Complete MTDD
--- NOTE | 2016-12-25 05:30 | EDDOCDS ---
Nurse's Notes [facility] Name: Gt Lindsay Age: 86 yrs Sex: Male : 1930 Arrival Date: 12/22/2016 Time: 21:11 Bed 8 Private MD: Te rGaham MD Diagnosis: Influenza due to identified novel influenza A virus Presentation: 12/22 21:17 Presenting complaint: Patient states: fell twice this evening. bilateral leg weakness rs3 since this evening. Adult Sepsis Screening: The patient does not have new or worsening altered mentation. Patient's respiratory rate is less than 22. Systolic blood pressure is greater than 100. Patient has a qSOFA score of 0- Negative Sepsis Screen. Suicide/Homicide risk assessment- the patient denies having any suicidal and/or homicidal ideations and does not present with any other emotional, behavioral or mental health complaints. Status: Patient is not a clinical services professional or dependent. Transition of care: patient was not received from another setting of care. 21:17 Acuity: SUSAN Level 3 rs3 21:17 Method Of Arrival: Wheelchair rs3 Triage Assessment: 21:20 General: Appears in no apparent distress. Pain: Denies pain. Musculoskeletal: Reports rs3 weakness in right leg and left leg. Historical: - Allergies: no known allergies; - Home Meds: 1. aspirin 81 mg Oral TbEC 1 tab once daily 2. glipizide-metformin 2.5-500 mg oral tab 2 tabs 2 times per day 3. hydrochlorothiazide 25 mg Oral tab 0.5 tab once daily 4. Januvia 100 mg oral tab 0.5 tab once daily 5. omeprazole 20 mg Oral TbEC 2 cap daily 6. potassium chloride 20 mEq Oral TbER 1 tab 2 times per day 7. simvastatin 40 mg Oral tab 1 tab once daily - PMHx: Diabetes - NIDDM: controlled; GERD; Hypercholesterolemia; Hypertension; - PSHx: Appendectomy; Cholecystectomy; - Social history: Smoking status: Patient uses tobacco products, light tobacco smoker. No barriers to communication noted, Speaks appropriately for age. - Family history: Not pertinent. - : The pt / caregiver states he / she is not on anticoagulants. Home medication list is obtained from the patient. - Exposure Risk Screening:: None identified. Screenin:31 Screening information is obtained from the patient. Fall risk: At risk due to prior ko2 history of falls, The following interventions are performed due to a positive Fall Risk Screen: Fall Risk is added to Special Handling on the patient Summary Screen. A Fall Risk Bracelet was applied to the patient. Side Rails are placed in the up position. A Call Ang is given with instruction to call for help when getting out of bed. Fall Alert bracelet is placed on the patient. Assistance ADL's: requires no assistance with activities of daily living. Abuse/DV Screen: The patient / caregiver reports he/she is: not in a situation that causes fear, pain or injury. Nutritional screening: No deficits noted. Advance Directives: Currently, there is a health care proxy, Carly Lindsay - . There is an active DNR order but there is no copy available at this time. There is no living will. There is no Power of Print Line Inspector. home support is adequate. Assessment: 21:30 General: Appears in no apparent distress, comfortable, Behavior is appropriate for age, ko2 cooperative. Pain: Denies pain. Neurological: Level of Consciousness is awake, alert. Respiratory: Airway is patent Respiratory effort is even, unlabored. Derm: Skin is normal. Musculoskeletal: Range of motion intact in all extremities. pt states his legs are weak and he can't get them to do what he wants them to do. 22:34 General: Appears in no apparent distress, comfortable, Behavior is appropriate for age, ko2 cooperative. Pain: Denies pain. Neurological: Level of Consciousness is. Respiratory: Airway is patent Respiratory effort is even, unlabored. Derm: Skin is normal. 23:30 General: Appears in no apparent distress, comfortable, Behavior is appropriate for age, ko2 cooperative. Pain: Denies pain. Respiratory: Airway is patent Respiratory effort is even, unlabored. Derm: Skin is normal. 12/23 00:30 General: Appears in no apparent distress, comfortable, Behavior is appropriate for age, ko2 cooperative. Neurological: Level of Consciousness is awake, alert. Respiratory: Airway is patent Respiratory effort is even, unlabored. Derm: Skin is normal. 01:53 General: Appears in no apparent distress, comfortable, Behavior is appropriate for age, ko2 cooperative. Neurological: Level of Consciousness is awake, alert. Respiratory: Airway is patent Respiratory effort is even, unlabored. Derm: Skin is normal. 03:21 General: Appears in no apparent distress, comfortable, Behavior is appropriate for age, ko2 cooperative. Pain: Denies pain. Neurological: Level of Consciousness is awake, alert. Respiratory: Airway is patent Respiratory effort is even, unlabored. Derm: Skin is normal. 04:24 General: Appears in no apparent distress, comfortable, Behavior is appropriate for age, ko2 cooperative. Neurological: Level of Consciousness is awake, alert. Respiratory: Airway is patent Respiratory effort is even, unlabored. Derm: Skin is normal. Vital Signs: 12/22 21:14 BP 153 / 61; Pulse 78; Resp 18 S; Temp 100.4(O); Pulse Ox 97% on R/A; Weight 75.75 kg gr2 (R); Height 5 ft. 11 in. (180.34 cm) (R); Pain 5/10; 21:57 BP 158 / 70 Supine; Pulse 75; ko2 21:57 BP 166 / 74 Sitting; Pulse 88; ko2 21:57 BP 155 / 67 Standing; Pulse 78; ko2 22:05 Pulse 72 MON; ko2 22:06 BP 148 / 67 (auto/); ko2 22:20 Pulse 74 MON; ko2 22:21 BP 153 / 72 (auto/); ko2 22:51 BP 135 / 65 (auto/); ko2 22:51 Pulse 74 MON; Pulse Ox 98% ; ko2 23:05 Pulse 74 MON; Pulse Ox 96% ; ko2 23:06 BP 164 / 67 (auto/); ko2 23:35 Pulse 72 MON; ko2 23:36 BP 152 / 66 (auto/); ko2 23:50 Pulse 74 MON; ko2 23:51 BP 147 / 67 (auto/); ko2 12/23 00:05 Pulse 76 MON; ko2 00:06 BP 152 / 67 (auto/); ko2 00:21 BP 148 / 63 (auto/); ko2 00:21 Pulse 72 MON; ko2 00:51 BP 146 / 80 (auto/); ko2 00:51 Pulse 74 MON; ko2 01:06 BP 140 / 65 (auto/); ko2 01:06 Pulse 74 MON; ko2 01:21 BP 141 / 65 (auto/); ko2 01:21 Pulse 72 MON; ko2 01:36 BP 131 / 60 (auto/); ko2 01:36 Pulse 74 MON; ko2 01:50 Pulse 76 MON; ko2 01:51 BP 141 / 66 (auto/); ko2 02:33 BP 137 / 63; Pulse 78; Resp 16; Temp 101.5(O); Pulse Ox 94% on R/A; Pain 0/10; ko2 04:26 BP 125 / 78; Pulse 79; Resp 16; Temp 98.5(O); Pulse Ox 97% ; Pain 0/10; ko2 12/22 21:14 Body Mass Index 23.29 (75.75 kg, 180.34 cm) gr2 Vitals: 12/22 21:14 Log In Time: December 22, 2016 at 21:14. gr2 ED Course: 21:13 Patient visited by Cory Russell. gr2 21:13 Patient moved to Waiting gr2 21:14 Te Graham is Private Physician. gr2 21:15 Patient visited by Cory Russell. gr2 21:15 Patient moved to Pre RCE gr2 21:19 Triage Initiated rs3 21:22 Alec Crabtree, MELO is Primary Nurse. cz 21:22 Rosario Luis RN is Primary Nurse. cz 21:22 Patient moved to 8 cz 21:25 [facility]. le 21:30 Patient visited by Sarah Archer FNP. le 21:35 Patient visited by Sarah Archer FNP. le 22:15 [facility] Payment Agreement was scanned into [employer] and attached to record. [id number] 22:18 [facility] Payment Agreement was scanned into [employer] and attached to record. ks16 22:23 Primary Nurse role handed off by Alec Crabtree RN rs6 22:23 Patient visited by Abel Sánchez PCA. mdr 22:23 EKG done. (by ED staff). Reviewed by Sarah ALARCON. mdr 22:34 The patient / caregiver is instructed regarding the plan of care and ED course. ko2 22:34 BLOOD CULTURES Sent. ko2 22:34 -Blood Culture Sent. ko2 22:34 Inserted saline lock: 20 gauge in right antecubital area and blood collected. The ko2 patient tolerated the procedure well. 22:35 Patient visited by Rosario Luis,MELO. ko2 23:25 Patient visited by Rosario Luis RN. ko2 23:28 Urine Culture Sent. mdr 23:28 Urinalysis Sent. mdr 23:43 RESPIRATORY PANEL [facility] [place] 12/23 00:07 Darrel Duran DO is Attending Physician. cs11 00:31 Patient visited by Rosario Luis RN. ko2 01:31 Patient visited by Rosario Luis RN. ko2 01:48 Mabel Bennett is Hospitalizing Provider. cs11 01:53 Patient visited by Rosario Luis RN. ko2 03:22 No procedures done that require assistance. ko2 20:36 T-Sheet-- Draft Copy was scanned into [employer] and attached to record. klr Administered Medications: 01:52 Drug: NS 0.9% 500 ml [sodium chloride 0.9 % intravenous solution] Route: IV; Rate: ko2 bolus; Site: right forearm; 01:53 Drug: Oseltamivir 75 mg [oseltamivir 75 mg capsule (1 caps)] Route: PO; ko2 02:42 Drug: Acetaminophen 650 mg [acetaminophen 325 mg tablet (2 tabs)] Route: PO; ko2 Order Results: Lab Order: C Reactive Protein; SPEC'M 12/22/16 22:27 Test: C REACTIVE PROTEIN QUANTITATIV; Value: 3.45; Range: 0.00-0.30; Abnormal: Above high normal; Units: MG/DL; Status: F Lab Order: CBC with Diff; SPEC'M 12/22/16 22:27 Test: WHITE BLOOD COUNT; Value: 5.8; Range: 4.0-10.0; Units: K/mm3; Status: F Test: RED BLOOD COUNT; Value: 4.03; Range: 4.30-6.10; Abnormal: Below low normal; Units: M/mm3; Status: F Test: HEMOGLOBIN; Value: 12.9; Range: 14.0-18.0; Abnormal: Below low normal; Units: g/dl; Status: F Test: HEMATOCRIT; Value: 36.9; Range: 42.0-52.0; Abnormal: Below low normal; Units: %; Status: F Test: MEAN CORPUSCULAR VOLUME; Value: 91.5; Range: 80.0-96.0; Units: fl; Status: F Test: MEAN CORPUSCULAR HEMOGLOBIN; Value: 31.9; Range: 27.0-33.0; Units: pg; Status: F Test: MEAN CORPUSCULAR HGB CONC; Value: 34.9; Range: 32.0-36.5; Units: g/dl; Status: F Test: RED CELL DISTRIBUTION WIDTH; Value: 13.4; Range: 11.5-14.5; Units: %; Status: F Test: PLATELET COUNT, AUTOMATED; Value: 223; Range: 150-450; Units: k/mm3; Status: F Test: NEUTROPHILS %; Value: 74.8; Range: 36.0-66.0; Abnormal: Above high normal; Units: %; Status: F Test: LYMPH %; Value: 10.1; Range: 24.0-44.0; Abnormal: Below low normal; Units: %; Status: F Test: MONO %; Value: 9.3; Range: 0.0-5.0; Abnormal: Above high normal; Units: %; Status: F Test: EOS %; Value: 1.7; Range: 0.0-3.0; Units: %; Status: F Test: BASO %; Value: 1.3; Range: 0.0-1.0; Abnormal: Above high normal; Units: %; Status: F Test: LARGE UNSTAINED CELL %; Value: 2.8; Range: 0.0-4.0; Units: %; Status: F Test: NEUTROPHILS #; Value: 4.4; Range: 1.8-7.7; Units: K/mm3; Status: F Test: LYMPH #; Value: 0.8; Range: 1.5-4.5; Abnormal: Below low normal; Units: K/mm3; Status: F Test: MONO #; Value: 0.5; Range: 0.0-0.8; Units: K/mm3; Status: F Test: EOS #; Value: 0.1; Range: 0.0-0.50; Units: K/mm3; Status: F Test: BASO #; Value: 0.1; Range: 0.0-0.2; Units: K/mm3; Status: F Test: LARGE UNSTAINED CELL #; Value: 0.2; Range: 0.0-0.4; Units: K/mm3; Status: F Lab Order: Lactic Acid (Warner tube on ice); [facility] 12/22/16 22:27 Test: LACTIC ACID SEPSIS PROTOCOL; Value: 1.3; Range: 0.4-2.0; Units: MMOL/L; Status: F Lab Order: Liver Profile; [facility] 12/22/16 22:27 Test: AST/SGOT; Value: 19; Range: 15-37; Units: U/L; Status: F Test: ALT/SGPT; Value: 21; Range: 12-78; Units: U/L; Status: F Test: ALKALINE PHOSPHATASE; Value: 81; Range: 45-117; Units: U/L; Status: F Test: BILIRUBIN,TOTAL; Value: 0.8; Range: 0.2-1.0; Units: MG/DL; Status: F Test: BILIRUBIN,DIRECT; Value: 0.2; Range: 0.0-0.2; Units: MG/DL; Status: F Test: TOTAL PROTEIN; Value: 6.6; Range: 6.4-8.2; Units: GM/DL; Status: F Test: ALBUMIN; Value: 3.5; Range: 3.2-5.2; Units: GM/DL; Status: F Test: ALBUMIN/GLOBULIN RATIO; Value: 1.13; Range: 1.00-1.93; Status: F Lab Order: MED Profile; [facility] 12/22/16 22:27 Test: GLUCOSE, FASTING; Value: 176; Range: 83-110; Abnormal: Above high normal; Units: MG/DL; Status: F Test: BLOOD UREA NITROGEN; Value: 10; Range: 7-18; Units: MG/DL; Status: F Test: CREATININE FOR GFR; Value: 1.41; Range: 0.70-1.30; Abnormal: Above high normal; Units: MG/DL; Status: F Test: GLOMERULAR FILTRATION RATE; Value: 50.9; Range: >35; Status: F Test: SODIUM LEVEL; Value: 137; Range: 136-145; Units: MEQ/L; Status: F Test: POTASSIUM SERUM; Value: 4.3; Range: 3.5-5.1; Units: MEQ/L; Status: F Test: CHLORIDE LEVEL; Value: 103; Range: 98-107; Units: MEQ/L; Status: F Test: CARBON DIOXIDE LEVEL; Value: 29; Range: 21-32; Units: MEQ/L; Status: F Test: ANION GAP; Value: 5; Range: 8-16; Abnormal: Below low normal; Units: MEQ/L; Status: F Test: CALCIUM LEVEL; Value: 8.5; Range: 8.8-10.2; Abnormal: Below low normal; Units: MG/DL; Status: F Test Note: ; Units are mL/min/1.73 m2 Chronic Kidney Disease Staging per NKF: Stage I & II GFR >=60 Normal to Mildly Decreased Stage III GFR 30-59 Moderately Decreased Stage IV GFR 15-29 Severely Decreased Stage V GFR <15 Very Little GFR Left ESRD GFR <15 on WATCH ASSEMBLY INSTRUCTOR Lab Order: Urinalysis; SPEC'M 12/22/16 23:24 Test: APPEARANCE, URINE; Value: CLEAR; Range: CLEAR; Status: F Test: COLOR, URINE; Value: YELLOW; Range: YELLOW; Status: F Test: PH,URINE; Value: 5.0; Range: 5.0-9.0; Units: UNITS; Status: F Test: SPECIFIC GRAVITY URINE AUTO; Value: 1.020; Range: 1.002-1.035; Status: F Test: PROTEIN, URINE AUTO; Value: 1+; Range: NEGATIVE; Abnormal: Above high normal; Units: mg/dL; Status: F Test: GLUCOSE, URINE (UA) AUTO; Value: 3+; Range: NEGATIVE; Abnormal: Above high normal; Units: mg/dL; Status: F Test: KETONE, URINE AUTO; Value: NEGATIVE; Range: NEGATIVE; Units: mg/dL; Status: F Test: UROBILINOGEN, URINE AUTO; Value: 0.2; Range: 0.0-2.0; Units: mg/dL; Status: F Test: BILIRUBIN, URINE AUTO; Value: NEGATIVE; Range: NEGATIVE; Status: F Test: NITRITE, URINE AUTO; Value: NEGATIVE; Range: NEGATIVE; Status: F Test: LEUKOCYTE ESTERASE, URINE AUTO; Value: NEGATIVE; Range: NEGATIVE; Status: F Test: BLOOD, URINE BLOOD; Value: 1+; Range: NEGATIVE; Abnormal: Above high normal; Status: F Test: WBC, URINE AUTO; Value: 0; Range: 0-3; Units: /HPF; Status: F Test: RBC, URINE AUTO; Value: 2; Range: 0-3; Units: /HPF; Status: F Test: BACTERIA, URINE AUTO; Value: NEGATIVE; Range: NEGATIVE; Status: F Test: SQUAMOUS EPITHELIAL CELL UR AU; Value: 0; Range: 0-6; Units: /HPF; Status: F Test: MUCUS, URINE; Value: SMALL; Range: NEGATIVE; Status: F Test: HYALINE CAST, URINE AUTO; Value: 0; Range: 0-1; Units: /LPF; Status: F Lab Order: RESPIRATORY PANEL; SPEC'M 12/22/16 23:41 Test: RESPIRATORY PANEL; Value: RP PANEL RESULT POSITIVE by PCR; Abnormal: Abnormal; Status: F Test: RESPIRATORY PANEL; Value: Comments:; Status: F Test: RESPIRATORY PANEL; Value: ORGANISM 1: INFLUENZA A H3; Status: F Test: RESPIRATORY PANEL; Value: INFLUENZA A H3; Status: F Test: RESPIRATORY PANEL; Value: Influenza H3 1 Influenza causes upper respiratory tract infections; Status: F Test: RESPIRATORY PANEL; Value: Influenza H3 10 Influenza A1H3.; Status: F Test: RESPIRATORY PANEL; Value: Influenza H3 2 with rapid onset of fever. During annual Influenza; Status: F Test: RESPIRATORY PANEL; Value: Influenza H3 3 epidemics, 5-20% of the population is affected.; Status: F Test: RESPIRATORY PANEL; Value: Influenza H3 4 Complications with viral or bacterial pneumonia; Status: F Test: RESPIRATORY PANEL; Value: Influenza H3 5 increase mortality from Influenza infections. There; Status: F Test: RESPIRATORY PANEL; Value: Influenza H3 6 are currently at least four antiviral medications; Status: F Test: RESPIRATORY PANEL; Value: Influenza H3 7 available for Influenza treatment (amantadine,; Status: F Test: RESPIRATORY PANEL; Value: Influenza H3 8 rimantadine, zanamivir and oseltamivir). More severe; Status: F Test: RESPIRATORY PANEL; Value: Influenza H3 9 disease and increased mortality are associated with; Status: F Test Note: ; This respiratory PCR panel detects Influenza A H1, H3 and 2009 H1 viruses, Influenza B virus, Respiratory syncytial virus, Human metapneumovirus, Parainfluenza virus 1, 2, 3 and 4, Adenovirus, Rhinovirus/Enterovirus, Coronavirus HKU1, NL63, OC43 and 229E, Bordetella pertussis, Mycoplasma pneumoniae and Chlamydia pneumoniae. Lab Order: HEMOGLOBIN A1C; SPEC'M 12/22/16 22:27 Test: HEMOGLOBIN A1c; Value: 6.2; Range: 4.5-6.2; Units: %; Status: F Test: ESTIMATED AVERAGE GLUCOSE; Value: 131; Range: 60-110; Abnormal: Above high normal; Units: MG/DL; Status: F Outcome: 01:48 Decision to Hospitalize by Provider. cs11 02:43 No special radiology studies were completed. ko2 02:44 Admission hand-off: Report Faxed Fax receipt verified by Jayda Auguste RN. ko2 04:24 Discharge Assessment: Patient awake, alert and oriented x 3. No cognitive and/or ko2 functional deficits noted. Patient verbalized understanding of disposition instructions. patient administered narcotics - no. The following High Risk Discharge criteria are identified: None. Admitted to Floor accompanied by tech, via stretcher, with chart. Condition: stable. Property :Personal belongings accompany Pt. 04:30 Patient left the ED. cz Signatures: Jonathan Cortez RN RN Sarah Chávez, UTILITY PORTER UTILITY PORTERCarolyn Petty RN RN rs3 Darrel Duran, DO cs11 Cory Russell gr2 Catherine CatsRN Rosario Harper RN RN ko2 Sindi Banks, SOCK IRONER SOCK IRONER rs6 Abel Sánchez, SOCK IRONER SOCK IRONER Yadi Mckeon, Reg Reg ks16 [place] Chart Complete MTDD
--- NOTE | 2016-12-25 05:30 | EDDOCDS ---
Physician Documentation [facility] Name: Gt Lindsay Age: 86 yrs Sex: Male : 1930 Arrival Date: 12/22/2016 Time: 21:11 Bed 8 Private MD: Te Graham MD Disposition: 12/23/16 01:48 Hospitalization ordered by Mabel Bennett for Inpatient Admission. Preliminary diagnosis is Influenza due to identified novel influenza A virus. - Bed requested for 4 [place]. - Status is Inpatient Admission. cz - Condition is Stable. - Problem is new. - Symptoms have improved. Historical: - Allergies: no known allergies; - Home Meds: 1. aspirin 81 mg Oral TbEC 1 tab once daily 2. glipizide-metformin 2.5-500 mg oral tab 2 tabs 2 times per day 3. hydrochlorothiazide 25 mg Oral tab 0.5 tab once daily 4. Januvia 100 mg oral tab 0.5 tab once daily 5. omeprazole 20 mg Oral TbEC 2 cap daily 6. potassium chloride 20 mEq Oral TbER 1 tab 2 times per day 7. simvastatin 40 mg Oral tab 1 tab once daily - PMHx: Diabetes - NIDDM: controlled; GERD; Hypercholesterolemia; Hypertension; - PSHx: Appendectomy; Cholecystectomy; - Social history: Smoking status: Patient uses tobacco products, light tobacco smoker. No barriers to communication noted, Speaks appropriately for age. - Family history: Not pertinent. - : The pt / caregiver states he / she is not on anticoagulants. Home medication list is obtained from the patient. - Exposure Risk Screening:: None identified. Vital Signs: 12/22 21:14 BP 153 / 61; Pulse 78; Resp 18 S; Temp 100.4(O); Pulse Ox 97% on R/A; Weight 75.75 kg / gr2 167 lbs (R); Height 5 ft. 11 in. (180.34 cm) (R); Pain 5/10; 21:57 BP 158 / 70 Supine; Pulse 75; ko2 21:57 BP 166 / 74 Sitting; Pulse 88; ko2 21:57 BP 155 / 67 Standing; Pulse 78; ko2 22:05 Pulse 72 MON; ko2 22:06 BP 148 / 67 (auto/); ko2 22:20 Pulse 74 MON; ko2 22:21 BP 153 / 72 (auto/); ko2 22:51 BP 135 / 65 (auto/); ko2 22:51 Pulse 74 MON; Pulse Ox 98% ; ko2 23:05 Pulse 74 MON; Pulse Ox 96% ; ko2 23:06 BP 164 / 67 (auto/); ko2 23:35 Pulse 72 MON; ko2 23:36 BP 152 / 66 (auto/); ko2 23:50 Pulse 74 MON; ko2 23:51 BP 147 / 67 (auto/); ko2 12/23 00:05 Pulse 76 MON; ko2 00:06 BP 152 / 67 (auto/); ko2 00:21 BP 148 / 63 (auto/); ko2 00:21 Pulse 72 MON; ko2 00:51 BP 146 / 80 (auto/); ko2 00:51 Pulse 74 MON; ko2 01:06 BP 140 / 65 (auto/); ko2 01:06 Pulse 74 MON; ko2 01:21 BP 141 / 65 (auto/); ko2 01:21 Pulse 72 MON; ko2 01:36 BP 131 / 60 (auto/); ko2 01:36 Pulse 74 MON; ko2 01:50 Pulse 76 MON; ko2 01:51 BP 141 / 66 (auto/); ko2 02:33 BP 137 / 63; Pulse 78; Resp 16; Temp 101.5(O); Pulse Ox 94% on R/A; Pain 0/10; ko2 04:26 BP 125 / 78; Pulse 79; Resp 16; Temp 98.5(O); Pulse Ox 97% ; Pain 0/10; ko2 12/22 21:14 Body Mass Index 23.29 (75.75 kg, 180.34 cm) gr2 MDM: 12/22 21:45 -Blood Culture (Adults Only), peripheral from different site, or from device/port/PICC le etc. if present ordered. 21:45 Vendor Analyst/Pulse Ox/q 15 min VS ordered. le 21:45 IV Saline Lock ordered. le 21:45 Orthostatic VS ordered. le 21:46 -Blood Culture Ordered. EDMS 21:46 C Reactive Protein Ordered. EDMS 21:46 CBC with Diff Ordered. EDMS 21:46 Lactic Acid (Warner tube on ice) Ordered. EDMS 21:46 Liver Profile Ordered. EDMS 21:46 MED Profile Ordered. EDMS 21:46 Urinalysis Ordered. EDMS 21:46 Urine Culture Ordered. EDMS 21:47 ECG WITH READING ER PHYS+CARDIAG ordered. EDMS 21:48 Chest, 2 View (pa\E\lat) Ordered. EDMS 21:48 -Blood Culture (Adults Only), peripheral from different site, or from device/port/PICC kb5 etc. if present complete. 21:49 BLOOD CULTURES Ordered. EDMS 22:15 Financial registration complete. [email or web address] 22:15 [facility] Payment Agreement was scanned into [employer] and attached to record. [email or web address] 22:19 [facility] Payment Agreement was scanned into [employer] and attached to record. [email or web address] 22:53 CBC with Diff Reviewed. le 23:24 C Reactive Protein Reviewed. le 23:24 MED Profile Reviewed. le 23:24 Lactic Acid (Warner tube on ice) Reviewed. le 23:24 Liver Profile Reviewed. le 23:35 Misc Accounting Machine Operator Order ordered. le 23:41 Misc Accounting Machine Operator Order complete. kb5 23:42 RESPIRATORY PANEL Ordered. EDMS 0224 01:41 Urinalysis Reviewed. cs11 01:41 RESPIRATORY PANEL Reviewed. cs11 01:41 Oseltamivir 75 mg PO once ordered. cs11 01:44 NS 0.9% 500 ml IV at bolus once ordered. cs11 01:45 BED REQUEST+ADM ordered. EDMS 01:52 PHYSICAL THERAPY EVAL & TREAT ordered. EDMS 01:53 Admission / Observation Status ordered. EDMS 02:24 CONSISTENT CARBOHYDRATES ordered. EDMS 02:24 HEMOGLOBIN A1C Ordered. EDMS 02:26 BASIC METABOLIC PROFILE Ordered. EDMS 02:26 CBC WITH DIFFERENTIAL Ordered. EDMS 02:38 Acetaminophen Tablet 650 mg PO once ordered. ko2 20:36 T-Sheet-- Draft Copy was scanned into [employer] and attached to record. klr Administered Medications: 01:52 Drug: NS 0.9% 500 ml [sodium chloride 0.9 % intravenous solution] Route: IV; Rate: ko2 bolus; Site: right forearm; 01:53 Drug: Oseltamivir 75 mg [oseltamivir 75 mg capsule (1 caps)] Route: PO; ko2 02:42 Drug: Acetaminophen 650 mg [acetaminophen 325 mg tablet (2 tabs)] Route: PO; ko2 Signatures: Dispatcher [employer] EDMS Jonathan Cortez RN RN cz Paco Cruz, INFLATABLE BUILDINGS LAMINATOR INFLATABLE BUILDINGS LAMINATOR kb5 Sarah Archer, SOFTWARE APPLICATIONS DESIGNER SOFTWARE APPLICATIONS DESIGNER Carolyn Hemphill RN RN rs3 Darrel Duran, DO cs11 Rosario LuisRN RN ko2 Lucy Yadi, Reg Reg ks16 Rafael, [place] klr William lFood RN RN sa The chart was reviewed and I authenticate all verbal orders and agree with the evaluation and treatment provided.Corrections: (The following items were deleted from the chart) 12/22 23:26 Straight cath ordered. le le 12/23 02: 01:53 NO ADDED SALT DIET ordered. EDMS EDMS 01:54 BASIC METABOLIC PROFILE ordered. EDMS EDMS 01:54 CBC WITH DIFFERENTIAL ordered. EDMS EDMS Attachments: 22:19 [facility] Payment Agreement [email or web address] 12/23 20:36 T-Sheet-- Draft Copy klr Chart Complete MTDD
== END 2016-12-24 12:29 | disposition home or self-care (01) ==
LOC: M ED 21:11 → M MS5PR 21:12 → M ED INP 12-23 01:47 → UNDOADMOB 12-23 01:47 → M MSPAV 12-23 04:35 → M ED INP 12-23 04:35 → UNDODISOB 12-24 12:29
PROVIDERS: ADMIT General Practice; ATTEND Internal Medicine
DX: J10.1 Influenza due to other identified influenza virus with other respiratory manifestations (principal); R53.1 Weakness; R29.6 Repeated falls; K21.9 Gastro-esophageal reflux disease without esophagitis; E11.9 Type 2 diabetes mellitus without complications; I12.9 Hypertensive chronic kidney disease with stage 1 through stage 4 chronic kidney disease, or unspecified chronic kidney disease; E78.4 Other hyperlipidemia; N18.3 Chronic kidney disease, stage 3 (moderate); F17.210 Nicotine dependence, cigarettes, uncomplicated; Z79.82 Long term (current) use of aspirin; Z79.899 Other long term (current) drug therapy; Z88.8 Allergy status to other drugs, medicaments and biological substances
CPT/HCPCS: 36415; 70450; 71020; 80048; 80061; 80076; 81001; 83036; 83605; 83735; 85025; 86140; 87040; 87086; 87486; 87581; 87633; 87798; 93005; 93041; 96372; 97161; 99285; G0378; J1650; J3475

== ENCOUNTER → 2017-02-03 | Outpatient (CLI) | payer MEDICARE, OTHER ==
[~2017-02-03] MED LIST changes: +ARIC10TA PO; +CETI10TA PO; +CITA20TA4 PO; +DONE5TAB17 PO; +HYDR25TAB PO; +OMEP20CA3 PO; +OSEL75CA PO; +OSEL75CA2 PO
[2017-02-03 14:04] LABS: CREATININE FOR GFR 1.45 MG/DL (0.70-1.30); GLOMERULAR FILTRATION RATE 49.2 (>35); POTASSIUM SERUM 4.9 MEQ/L (3.5-5.1)
[2017-02-03 14:30] LABS: MICROSCOPIC INDICATED? MAN YES (NO)
[2017-02-03 14:55] LABS: BACTERIA, URINE SMALL AMOUNT; GRANULAR CAST, URINE 0-1 /lpf; HYALINE CAST, URINE 0-1 /lpf (0-1); RBC, URINE 0-1 /hpf (0-3); SQUAMOUS EPITHELIAL CELL URINE SMALL AMOUNT /hpf (SMALL AMT)
[2017-02-03 14:56] LABS: MICROSCOPIC EXAM PERFORMED
== END ==
LOC: M SMT 09:28
PROVIDERS: ATTEND Nurse Practitioner Family
DX: N28.89 Other specified disorders of kidney and ureter (principal)
CPT/HCPCS: 36415; 80048; 81000; 87086; G0463

== ENCOUNTER → 2017-02-06 | Outpatient (CLI) | payer MEDICARE, OTHER ==
[~2017-02-06] MED LIST changes: -CETI10TA PO; +ISOVUE-370 76% 100ML VIAL (Q9967) As Ordered ONE
--- NOTE | 2017-02-07 09:24 | REP ---
CT of the abdomen pelvis multiphase imaging: Comparison is the renal ultrasound dated 12/12 2016 identified a left renal upper pole 4.2 cm solid mass. The CT status initially performed without IV contrast. This is followed by triphasic IV contrast enhanced imaging, initially during the arterial phase of enhancement, followed by portal venous phase imaging followed by delayed equilibrium phase imaging. There is a solid left renal upper pole mass mass maximally measuring 4.[address] On the coronal views, similar to the comparison ultrasound. No renal vein tumor thrombus is identified by CT, however, CT is somewhat insensitive. There are four left renal cortical cysts, one at the upper pole posterior to the solid mass, exophytic, measuring 14 mm. Another is anterior at the mid pole, subcapsular, measuring 2.1 cm. Another is at the lower pole medially measuring 1.2 cm, and the final is at the lower pole posteriorly measuring 0.5 cm. The right kidney demonstrates two cortical cysts, one exophytic at the upper pole measuring 3.7 cm and the other just inferior to the os at the upper pole, subcapsular, measuring 2.2 cm. There are no renal calculi on the right on the left. There is no hydronephrosis on the right on the left. There is no periaortic/retroperitoneal adenopathy. The visualized lung coronado reveal no nodules or masses. There are no infiltrates or effusions. The hepatic parenchyma demonstrates three hypoechoic foci one medially in the right lobe measuring 2.2 cm , another laterally in the right lobe measuring 2 cm and the third slightly inferior to these measuring 0.6 cm. These are all nonspecific by CT. The the patient reportedly has a cholecystectomy and appendectomy. The pancreas and spleen are unremarkable. The adrenals are unremarkable. The abdominal aorta is unremarkable except for occasional calcified atheroma. The bowel and mesentery are unremarkable. Pelvis: There is descending colon and sigmoid colon diverticulosis. There is marrow mild pericolonic stranding posterior to the sigmoid colon compatible with diverticulitis. No abscess is identified. No ascites. There is no adenopathy. Iridium seeds are noted in the prostate. There is ae tiny densities in the L2 vertebral body, posterior strut of the right acetabulum in the right humeral head. Differentiation of bone islands and blastic metastases is not possible on this single study. Consider radionuclide bone scan if clinically appropriate. Impression: Left renal mass as described. Bilateral renal cortical cysts as described. There are no renal calculi. There is no hydronephrosis. There are three nonspecific hypo densities in the liver. There is no adenopathy or ascites. There are iridium seeds in the prostate. There are tiny densities in the the L2 vertebral body, right acetabulum and right femoral head, nonspecific, bone islands versus blastic metastases. Signed by Gumaro Johns MD 02/07/2017 09:15 A
== END ==
LOC: M RAD 17:48
PROVIDERS: ATTEND Nurse Practitioner Family
DX: N28.89 Other specified disorders of kidney and ureter (principal); N28.1 Cyst of kidney, acquired; Z98.890 Other specified postprocedural states
CPT/HCPCS: 74178; Q9967

== ENCOUNTER 2017-03-06 07:30 | Inpatient (IN) | payer MEDICARE, OTHER ==
[~2017-03-06] VITALS: Ht 177.8 cm; Wt 83.8 kg
[~2017-03-06 07:30] MED LIST changes: +CETI10TA PO; -ISOVUE-370 76% 100ML VIAL (Q9967) As Ordered ONE
[2017-03-10] VITALS (9 sets, daily range): BP systolic 115–150; BP diastolic 55–69; O2SAT 94–96
[2017-03-10] MEDS ORDERED: ceFAZolin 2 GM/D5W 50 ML IV BAG (J0690) As Ordered ONE (08:10)
[2017-03-10] MEDS ORDERED: LIDOCAINE 1% SDV INJ 30 ML VIAL As Ordered ONE (08:14)
[2017-03-10] MEDS ORDERED: ACETAMINOPHEN TAB 650MG DOSE (2X325MG) PO PRN (08:15)
[2017-03-10] MEDS ORDERED: GLUCAGON FOR INJ 1 MG VIAL (J1610) SC PRN (08:15)
[2017-03-10] MEDS ORDERED: ONDANSETRON 4MG/2ML VIAL (J2405) IV PRN (08:15)
[2017-03-10] MEDS ORDERED: BUPIVACAINE HCL 0.25% 30 ML VIAL As Ordered ONE (08:15)
[2017-03-10] MEDS ORDERED: MORPHINE 2 MG/ML 1ML SYRINGE IV PRN (08:15)
[2017-03-10] MEDS ORDERED: DEXTROSE 50% 50 ML SYRINGE IV PRN (08:15)
[2017-03-10] MEDS ORDERED: GLUCOSE 4 GM CHEW TABLET PO PRN (08:15)
[2017-03-10] MEDS ORDERED: LR 1,000 ML IV ONE (08:30)
[2017-03-10] MEDS: hydroCHLOROthiazide 12.5 MG CAPSULE PO SCH (09:00)
[2017-03-10] MEDS: DOCUSATE SODIUM 100 MG CAP PO SCH ×3 (09:00→22:09)
[2017-03-10] MEDS: CETIRIZINE (ZyrTEC) 10 MG TAB PO SCH (09:00)
[2017-03-10] MEDS: ASPIRIN 81 MG ENTERIC TAB PO SCH (09:00)
[2017-03-10] MEDS: DONEPEZIL 5 MG TAB PO SCH (09:00)
[2017-03-10] MEDS: OMEPRAZOLE 20 MG CAP PO SCH (09:00)
[2017-03-10] MEDS ORDERED: fentaNYL 100 MCG/2 ML INJECTION (J3010) As Ordered ONE ×3 (09:26→14:23)
[2017-03-10] MEDS ORDERED: MIDAZOLAM INJ 2 MG/2 ML VIAL (J2250) As Ordered ONE (09:26)
[2017-03-10] MEDS ORDERED: ROCURONIUM BROMIDE 50 MG/5 ML VIAL As Ordered ONE ×2 (09:26→10:02)
[2017-03-10] MEDS ORDERED: REMIFENTANIL 1MG 3ML VIAL As Ordered ONE ×3 (09:26→11:41)
[2017-03-10] MEDS ORDERED: ePHEDrine SULFATE 25 MG/5 ML(5MG/ML) SYRINGE As Ordered ONE (09:31)
[2017-03-10] MEDS ORDERED: PROPOFOL 200 MG/20 ML VIAL As Ordered ONE (09:42)
[2017-03-10] MEDS ORDERED: METOCLOPRAMIDE INJ 10MG/2ML VIAL (J2765) As Ordered ONE (09:42)
[2017-03-10] MEDS ORDERED: GLYCOPYRROLATE INJ 0.2 MG/ML 2 ML VIAL As Ordered ONE (09:43)
[2017-03-10] MEDS ORDERED: NEOSTIGMINE 1MG/ML 5 ML SYRINGE (J2710) As Ordered ONE (09:43)
[2017-03-10] MEDS ORDERED: LIDOCAINE 2% INJ 100 MG/5 ML SDV (FOR ANES.) As Ordered ONE (09:43)
[2017-03-10] MEDS ORDERED: ONDANSETRON 4MG/2ML VIAL (J2405) As Ordered ONE (09:43)
[2017-03-10] MEDS ORDERED: PHENYLEPHRINE INJ 10MG/ML VIAL (J2370) As Ordered ONE (09:43)
[2017-03-10] MEDS ORDERED: DESFLURANE 240 ML INHALANT As Ordered ONE (09:56)
[2017-03-10] MEDS ORDERED: SEVOFLURANE INHAL SOLN 250 ML BTL As Ordered ONE (09:57)
[2017-03-10] MEDS: HumaLOG INSULIN (NovoLOG) PER UNIT SC SCH ×3 (12:00→22:11)
[2017-03-10] MEDS ORDERED: ETOMIDATE INJ 20MG/10ML VIAL As Ordered ONE (13:49)
[2017-03-10] MEDS ORDERED: FUROSEMIDE 100 MG/10 ML VIAL (J1940) As Ordered ONE (14:12)
[2017-03-10] MEDS ORDERED: SUGAMMADEX SODIUM 500 MG/5 ML VIAL (BRIDION) As Ordered ONE (14:55)
[2017-03-10 15:28] LABS: MEAN CORPUSCULAR HEMOGLOBIN 31.7 pg (27.0-33.0); MEAN CORPUSCULAR HGB CONC 34.8 g/dl (32.0-36.5); RED CELL DISTRIBUTION WIDTH 13.6 % (11.5-14.5); WHITE BLOOD COUNT 12.1 K/mm3 (4.0-10.0)
--- NOTE | 2017-03-10 15:29 | ROOPDOC ---
[facility] Report Of Operation Report of Operation DATE OF PROCEDURE: 03/10/2017 PREPROCEDURE DIAGNOSIS: Left Renal Mass. POSTPROCEDURE DIAGNOSIS: Left Renal Mass. PROCEDURE: Left robotic-assisted laparoscopic radical nephrectomy. SURGEON: Salty Harvey MD BULLARD MACHINE OPERATOR: Adali Brink NP ANESTHESIA: General. OPERATIVE INDICATIONS: This is an 86 year old male with an enhancing 4.8cm completely endophytic left renal mass, concerning for malignancy. After a discussion of the different options for management, the patient elected to undergo the above listed procedure. DESCRIPTION OF PROCEDURE: The patient was brought to the operating room and general anesthesia was induced. Prophylactic antibiotics were infused. He then had a Wooten catheter placed under sterile conditions. He was then placed in the right lateral decubitus position with all pressure points appropriately padded. An axillary roll was placed. He was then secured to the table with tape. He was then prepped and draped in the usual sterile fashion. Initial incision was then for a 12 mm port in line with the 11th rib along the lateral rectus margin. The Veress needle was utilized to achieve pneumoperitoneum. A 12 mm port was then inserted and after which a camera was inserted. There were no apparent injuries from Veress needle or initial trocar placement. The remainder of the ports were then placed under direct vision, including a left hand robotic port just beneath the costal margin and a 5 mm home care assistant port between the left hand port and the camera port. Another 15 mm home care assistant port was placed just distal to the camera port and another robotic port was placed between the anterior-superior iliac spine and umbilicus. After all the ports were placed, the robot was then docked and the instruments were inserted. We began the dissection by mobilizing the left colon medially off of Gerota's fascia. The spleen was also mobilized cephalad off the upper part of Gerota's fascia. We then started dissecting on the lower pole of the kidney and the gonadal vein was located. The gonadal vein was then dissected and traced up towards the left renal vein. The gonadal vein was then ligated with clips and transected in between. Once that was done, we were able to identify the main renal artery posterior to the renal vein, and this was carefully dissected. The renal artery was then ligated with 3 Weck clips and then transected in between, leaving two Weck clips on the stay side. A smaller artery was also located above the renal vein. This artery was dissected, ligated, and then transected in a similar fashion. At this point, the adrenal vein was also ligated with Weck clips and transected in between. The renal vein was then carefully dissected, and it was then ligated and transected with a 60 load Endo BRIDGETTE stapler. At this point, the rest of the hilum was completely taken. Of note, there was a hilar lymph node that was approximately 1cm in size. This was dissected out and sent for pathologic analysis. We then mobilized the adrenal gland off the upper pole of the kidney and spared the adrenal gland. The upper pole of the kidney was then completely mobilized along with the rest of the kidney until the kidney was only attached by the ureter distally. At this point , the ureter was then carefully dissected distally and the gonadal vein was ligated and transected again in between Weck clips. The ureter was also ligated with Weck clips and transected. At this point, the kidney was placed in an Endo Catch bag for future retrieval. At this point, we checked for hemostasis and hemostasis appeared excellent. We did administer Anand over the area of the hilum and the area of the adrenal gland. Once this was done, the robot was undocked, and we utilized a Ramon-Chris fascial closure device to place an # 0 Vicryl tie through the fascia of the camera port site. We then connected the skin incisions between the 15 mm home care assistant ports and the right hand robotic port. We then dissected down through the subcutaneous layers and opened the fascia with electrocautery. At this point, the muscle was bluntly spread just enough so that we could then extract the kidney within the Endo Catch bag. Once this was done, we checked for hemostasis and it appeared excellent. We then closed the fascia with a running #0 Vicryl suture. At this point, the abdomen was then re-insufflated, and we checked the extraction site and there were no intraabdominal contents caught within the extraction site closure. There was no bleeding from the extraction site either. At this point, we removed all of the other ports under direct vision, and there was no bleeding from the port sites. Once all the ports were removed, the previously placed #0 Vicryl free tie was tied down in the camera port site. We then irrigated all of the incisions with sterile saline. Once that was done, the subcutaneous tissue of the extraction site was reapproximated with interrupted #3-0 Vicryl suture. The skin of all incisions were then closed with running #4-0 Monocryl subcuticular suture. Once this was done, local anesthesia was applied and Dermabond was then applied to all the incisions. This marked the conclusion of the procedure. The patient was then taken out of the right lateral decubitus position, awakened from anesthesia and transported to the recovery room in stable condition. ESTIMATED BLOOD LOSS: 25 mL. COMPLICATIONS: None. SPECIMENS: Left kidney, and hilar lymph node. PLAN: The patient will be kept in the hospital for the next few days. We will monitor him closely to see what his kidney function is and once his kidney function levels off, his pain is under good control and he is tolerating a regular diet, he will be ready for discharge. SALTY HARVEY MD March 10, 2017 15:29
[2017-03-10 15:44] LABS: CREATININE FOR GFR 1.58 MG/DL (0.70-1.30); GLOMERULAR FILTRATION RATE 44.6 (>35); POTASSIUM SERUM 4.9 MEQ/L (3.5-5.1)
[2017-03-10] MEDS: NS 1,000 ML IV SCH ×2 (16:10→17:58)
[2017-03-10] MEDS: PERCOCET 5MG/325MG TAB PO PRN ×2 (16:18→22:08)
[2017-03-10] MEDS: ceFAZolin SOD 1 GM in D5W MINI-BAG PLUS 50 ML IV SCH (17:58)
[2017-03-10] MEDS: SIMVASTATIN 40 MG TAB PO SCH (21:31)
[2017-03-11] VITALS (12 sets, daily range): BP systolic 138–163; BP diastolic 65–77; O2SAT 94–95
[2017-03-11] MEDS: ceFAZolin SOD 1 GM in D5W MINI-BAG PLUS 50 ML IV SCH (00:29)
[2017-03-11] MEDS: NS 1,000 ML IV SCH ×2 (02:46→08:45)
[2017-03-11] MEDS: PERCOCET 5MG/325MG TAB PO PRN ×3 (04:51→21:11)
[2017-03-11 05:26] LABS: MEAN CORPUSCULAR HEMOGLOBIN 32.1 pg (27.0-33.0); MEAN CORPUSCULAR HGB CONC 34.1 g/dl (32.0-36.5); MEAN CORPUSCULAR VOLUME 94.2 fl (80.0-96.0); RED CELL DISTRIBUTION WIDTH 13.3 % (11.5-14.5)
[2017-03-11 05:39] LABS: CALCIUM LEVEL 7.4 MG/DL (8.8-10.2); CREATININE FOR GFR 2.19 MG/DL (0.70-1.30); GLOMERULAR FILTRATION RATE 30.6 (>35); POTASSIUM SERUM 4.6 MEQ/L (3.5-5.1)
[2017-03-11] MEDS: HumaLOG INSULIN (NovoLOG) PER UNIT SC SCH ×5 (07:30→20:56)
[2017-03-11] MEDS: ASPIRIN 81 MG ENTERIC TAB PO SCH (08:45)
[2017-03-11] MEDS: OMEPRAZOLE 20 MG CAP PO SCH (08:45)
[2017-03-11] MEDS: hydroCHLOROthiazide 12.5 MG CAPSULE PO SCH (08:45)
[2017-03-11] MEDS: DOCUSATE SODIUM 100 MG CAP PO SCH ×2 (08:45→21:11)
[2017-03-11] MEDS: DONEPEZIL 5 MG TAB PO SCH (08:46)
[2017-03-11] MEDS ORDERED: PERCOCET 5MG/325MG TAB PO PRN (10:30)
--- NOTE | 2017-03-11 10:45 | IPNPDOC ---
Assessment/Plan Date Seen The patient was seen on 03/11/17. Patient Summary This is an 86 y/o M POD1 s/p left robotic-assisted laparoscopic radical nephrectomy (adrenal-sparing). He is doing well. His Hb today is down a little to 11.6. His vitals are stable w/i normal limits. His Cr is trending up a little to 2.2, from a baseline of 1.5. His UOP has been very good. Plan/VTE VTE Prophylaxis Ordered?: Yes VTE Exclusion Mechanical Proph: N/A:VTE Prophy Ordered Plan/Urinary Catheter Urinary Catheter: D/C Randle Plan - d/c randle - decrease IVF to 50cc/hr - strict I/Os - ambulate - SCDs - incentive spirometry - percocet prn pain w/ morphine for breakthrough - advance diet as tolerated - discharge likely in 1-2 days depending on when his renal function stabilizes Subjective Review oF Systems Chief Complaint The patient is a 86-year-old male admitted with a reason for visit of Renal Mass. Events since Last Encounter No acute events o/n. Patient notes good pain control. No n/v. No shortness of breath or chest pain. Has not ambulated yet. No flatus yet. No f/c/ns. Objective Physical Examination General Exam: Alert, Cooperative, No Acute Distress ABDOMEN EXAM: Soft, Tenderness (appropriately tender; mildly distended), Other (incisions clean/dry/intact) Skin Exam: Nl turgor and temperature Psych Exam: Mental status NL, Mood NL Other physical findings catheter in place, draining clear urine Vital Signs/I&O Vital Signs Date Time Temp Pulse Resp B/P (MAP) Pulse Ox O2 Delivery O2 Flow Rate FiO2 03/11/17 07:54 99.4 84 18 145/68 (93) 93 Nasal Cannula 1.0 I&O- Last 24 Hours up to 6 AM 03/11/17 06:00 Intake Total 6270 ml Output Total 1350 ml Balance 4920 ml Laboratory Data Labs 24H Laboratory Tests 2 03/10/17 15:15: Anion Gap 7L, Glomerular Filtration Rate 44.6, Blood Urea Nitrogen 14, Creatinine 1.58H, Sodium Level 140, Potassium Level 4.9, Chloride Level 105, Carbon Dioxide Level 28, Calcium Level 8.0L 03/10/17 16:58: Bedside Glucose (Misc Panel) 217H 03/10/17 20:47: Bedside Glucose (Misc Panel) 271H 03/11/17 04:46: Anion Gap 9, Glomerular Filtration Rate 30.6L, Blood Urea Nitrogen 20H, Creatinine 2.19H, Sodium Level 139, Potassium Level 4.6, Chloride Level 104, Carbon Dioxide Level 26, Calcium Level 7.4L CBC/BMP Laboratory Tests 03/10/17 15:15 Red Blood Count 4.19 L, Mean Corpuscular Volume 91.0, Mean Corpuscular Hemoglobin 31.7, Mean Corpuscular Hemoglobin Concent 34.8, Red Cell Distribution Width 13.6, Calcium Level 8.0 L 03/11/17 04:46 Red Blood Count 3.61 L, Mean Corpuscular Volume 94.2, Mean Corpuscular Hemoglobin 32.1, Mean Corpuscular Hemoglobin Concent 34.1, Red Cell Distribution Width 13.3, Calcium Level 7.4 L FSBS Laboratory Tests Test 03/10/17 16:58 03/10/17 20:47 Range/Units Bedside Glucose (Misc Panel) 217 271 83-110 MG/DL SALTY HARVEY MD March 11, 2017 10:45
[2017-03-11] MEDS ORDERED: MORPHINE 2 MG/ML 1ML SYRINGE IV PRN (11:00)
[2017-03-11] MEDS ORDERED: FUROSEMIDE 20 MG/2 ML VIAL (J1940) IV ONE (21:00)
[2017-03-11] MEDS: CETIRIZINE (ZyrTEC) 10 MG TAB PO SCH (21:11)
[2017-03-11] MEDS: SIMVASTATIN 40 MG TAB PO SCH (21:11)
[2017-03-11] MEDS: TAMSULOSIN 0.4 MG CAP PO SCH (21:11)
[2017-03-12] VITALS (24 sets, daily range): BP systolic 119–165; BP diastolic 61–94; O2SAT 91–98
[2017-03-12] MEDS: NS 1,000 ML IV SCH ×2 (00:37→21:12)
[2017-03-12] MEDS ORDERED: METOPROLOL 5 MG/5 ML VIAL IV STA ×2 (05:54→06:14)
[2017-03-12 06:00] LABS: MEAN CORPUSCULAR HGB CONC 34.7 g/dl (32.0-36.5); MEAN CORPUSCULAR VOLUME 92.2 fl (80.0-96.0); RED CELL DISTRIBUTION WIDTH 13.3 % (11.5-14.5); WHITE BLOOD COUNT 9.3 K/mm3 (4.0-10.0)
[2017-03-12] MEDS ORDERED: METOPROLOL TART 25 MG TABLET PO SCH (06:00)
[2017-03-12 06:19] LABS: CALCIUM LEVEL 7.8 MG/DL (8.8-10.2); CREATININE FOR GFR 2.47 MG/DL (0.70-1.30); GLOMERULAR FILTRATION RATE 26.6 (>35); POTASSIUM SERUM 4.1 MEQ/L (3.5-5.1)
--- NOTE | 2017-03-12 07:25 | CR.PDOC ---
[facility] Consultation Consultation HOSPITALIST CONSULT NOTE Date of consult: 03/12/2017 Referring Provider: Dr. Ferdinand Segura PCP: Dr Cholo Alvarez Reason for Consult: Tachycardia HPI: 86-year-old male with hypertension, diabetes mellitus type 2, hyperlipidemia, GERD, CKD stage III who is postoperative day 2 from a left radical nephrectomy who developed tachycardia this morning. I received a call from Dr. Segura with urology asking me to please urgently evaluate the patient. Per nursing staff, he had been feeling well overnight, and woke up this morning to go to the bathroom. He reported that he had a small bowel movement, and during that time his heart rate jumped from being normal up to 150. The patient was asymptomatic with this, denying any chest pain or palpitations or shortness of breath. 12-lead EKG revealed A. fib with RVR. The patient denies any history of A. fib. His only complaint currently is some cramping around his umbilicus. He has a Wooten in place, and at this time it is draining clear urine. The nurse reports that overnight had approximately 30 minutes worth of light sleep pink tinged urine, but this occurred while he was ambulating and she suspects there may have been some trauma. The patient denies any major bleeds in the past. Past medical history: Hypertension, diabetes mellitus type 2, hyperlipidemia, GERD, CKD stage III Past surgical history: Appendectomy, cholecystectomy, recent robotic left radical nephrectomy with adrenal sparing Family history: Patient denies any known history of atrial fibrillation and his family. He thinks that possibly his mother had some heart disease. Social history: The patient currently smokes a cigar almost daily. He drinks alcohol on a very occasional basis. 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 Allergies: MASON inhibitor, aminoglycoside, ARB, bacitracin, neomycin,, polymyxin B Review of systems: General: Negative for fever and chills Eyes: Negative for vision changes and ocular discharge ENT: Negative for sore throat and nose bleed Cardiovascular: Negative for chest pain and palpitations Respiratory:. Negative for cough and shortness of breath GI: Negative for nausea, vomiting, diarrhea, constipation Musculoskeletal: Negative for neck and back pain Skin: Negative for rash Neuro: Negative for headache, dizziness, numbness, tingling Psych: Negative for depression and suicidal ideation : Patient currently has a Wooten in place and it is draining clear urine Heme: Negative for bleeding Home meds: See below Physical exam: Vital signs: Vital Sign - Last 24 Hours 03/11/17 03/11/17 03/11/17 03/11/17 07:54 10:54 11:33 15:41 Temp 99.4 97.5 97.0 Pulse 84 80 72 Resp 18 20 20 18 B/P (MAP) 145/68 (93) 139/65 (89) 163/77 (105) Pulse Ox 93 93 96 O2 Delivery Nasal Cannula Nasal Cannula Nasal Cannula Nasal Cannula O2 Flow Rate 1.0 1.0 1.0 03/11/17 03/11/17 03/11/17 03/11/17 20:22 21:11 21:41 23:45 Temp 99.6 99.9 Pulse 72 66 Resp 18 18 18 18 B/P (MAP) 139/66 (90) 150/74 (99) Pulse Ox 95 96 95 O2 Delivery Nasal Cannula Nasal Cannula Nasal Cannula Nasal Cannula O2 Flow Rate 1.0 1.0 1.0 1.0 03/12/17 03/12/17 03/12/17 03/12/17 04:45 06:00 06:01 06:02 Temp 100.0 Pulse 80 145 145 121 Resp 18 B/P (MAP) 156/72 (100) 150/80 150/80 (103) 148/86 (106) Pulse Ox 95 O2 Delivery Room Air 03/12/17 03/12/17 03/12/17 03/12/17 06:03 06:04 06:05 06:23 Pulse 109 109 115 121 B/P (MAP) 155/94 (114) 145/72 (96) 165/78 (107) 141/87 (105) 03/12/17 03/12/17 03/12/17 03/12/17 06:25 06:26 06:27 06:28 Pulse 125 120 124 110 B/P (MAP) 140/82 (101) 130/86 (101) 127/84 (98) 125/83 (97) Gen.: awake, alert, no acute distress Eyes: Extraocular movements intact, normal sclera ENT: Moist mucous membranes Cardiovascular: RRR, no murmurs rubs or gallops Lungs: clear to auscultation bilaterally, no rales, rhonchi, or wheeze Abdomen: Soft, NT/ND, normal BS Musculoskeletal: normal range of motion Extremities: No peripheral edema Neuro: alert and oriented 3, normal speech, no focal deficits Psych: Normal mood with congruent affect Labs and radiology: See below EKG shows A. fib with RVR Troponin negative Hemoglobin stable from yesterday Creatinine 2.47 Assessment and plan: 86-year-old male with hypertension, diabetes mellitus type 2, hyperlipidemia, GERD, CKD stage III who is postoperative day 2 from a left radical nephrectomy who developed tachycardia this morning. We are asked to consult on the patient for this new development and tachycardia. 1. Tachycardia: EKG reveals that the patient is in A. fib with RVR patient has no prior history of A. fib. At this time, initial troponin is negative. The patient's blood pressure is quite stable, so I gave 5 mg of IV Lopressor. This has had minimal effect on his heart rate, so we gave yet another 5 mg of IV Lopressor. His heart rate was starting to come down to the 110s with this. We will monitor for the next 30-60 minutes to see how his heart rate settles out. If his heart rate does not continue to come down consistently, we will give him some IV Cardizem. Ultimately we will start him on by mouth scheduled beta khalida or calcium channel khalida later today, after getting his heart rate controlled. The patient's [id number] score is 4, so he does warrant full anticoagulation. Patient denies any history of major bleed. His hemoglobin is currently stable. I discussed the situation with Dr. Segura, and he feels that it is safe for the patient to go ahead and start anticoagulation today. We will initiate eliquis 2.5mg twice a day. We also will get an echo and TSH today. We will continue to trend troponins and monitor on telemetry. 2. Diabetes mellitus type 2: I agree with the current management using sliding scale insulin while in-house. The patient reports that he uses pills at home, which are currently being held. DVT prophylaxis: [email or web address] Thank you for this consult. We will continue to follow along with you. Dr. Butler will follow the patient beginning at 7 AM today. Vital Signs/I&O Vital Signs Date Time Temp Pulse Resp B/P (MAP) Pulse Ox O2 Delivery O2 Flow Rate FiO2 03/12/17 06:28 110 125/83 (97) 03/12/17 04:45 100.0 18 95 Room Air 03/11/17 23:45 1.0 I&O- Last 24 Hours up to 6 AM 03/12/17 05:59 Intake Total 2590 ml Output Total 2025 ml Balance 565 ml Laboratory Data Labs 24H Laboratory Tests 2 03/11/17 11:29: Bedside Glucose (Misc Panel) 257H 03/12/17 05:47: Anion Gap 9, Glomerular Filtration Rate 26.6L, Blood Urea Nitrogen 24H, Creatinine 2.47H, Sodium Level 138, Potassium Level 4.1, Chloride Level 101, Carbon Dioxide Level 28, Calcium Level 7.8L, Total Creatine Kinase 525H, Creatine Kinase MB 5.6H, Creatine Kinase MB Relative Index 1.06, Troponin I < 0.02 CBC/BMP Laboratory Tests 03/12/17 05:47 Red Blood Count 3.52 L, Mean Corpuscular Volume 92.2, Mean Corpuscular Hemoglobin 32.0, Mean Corpuscular Hemoglobin Concent 34.7, Red Cell Distribution Width 13.3, Calcium Level 7.8 L Allergies Coded Allergies: Aminoglycosides (Unverified Allergy, Mild, RASH, 02/20/17) Bacitracin (Unverified Allergy, Mild, RASH, 01/29/13) Neomycin (Unverified Allergy, Mild, RASH, 01/29/13) Polymyxin B (Unverified Allergy, Mild, RASH, 01/29/13) MASON Inhibitors (Unverified Allergy, Unknown, UNKNOWN, 01/29/13) Angiotensin Receptor Blockers (Verified Allergy, Unknown, 01/29/13) Lisinopril (Verified Allergy, Unknown, 01/29/13) Home Medications Scheduled (Glipizide/Metformin HCl 2.5-500 mg) 1 Tab Tab, 1 TAB PO BID, (Reported) Aspirin (Aspir-81) 81 Mg Tab, 81 MG PO DAILY, (Reported) Cetirizine HCl (Cetirizine HCl) 10 Mg Tab, 10 MG PO DAILY, (Reported) Donepezil Hydrochloride (Aricept) 10 Mg Tab, 10 MG PO DAILY, (Reported) Hydrochlorothiazide (Hydrochlorothiazide) 25 Mg Tab, 12.5 MG PO DAILY, (Reported ) Omeprazole (Omeprazole) 20 Mg Cap, 40 MG PO DAILY, (Reported) Potassium Chloride (K-Tab) 20 Meq Tab, 20 MEQ PO BID, (Reported) Simvastatin - High Dose (Simvastatin) 40 Mg Tab, 40 MG PO QHS, (Reported) Sitagliptin Phosphate (Januvia) 100 Mg Tab, 50 MG PO DAILY, (Reported) Scheduled PRN Acetaminophen/Codeine (Tylenol/Codeine #3) Tab, 1 TAB PO Q6H PRN for PAIN, ( Reported) Loperamide Hcl (Imodium A-D) 2 Mg Tab, 2 MG PO PRN PRN for DIARRHEA, (Reported) ROJELIO DELVALLE March 12, 2017 07:25
[2017-03-12] MEDS: HumaLOG INSULIN (NovoLOG) PER UNIT SC SCH ×4 (08:16→20:35)
[2017-03-12] MEDS: DONEPEZIL 5 MG TAB PO SCH (08:16)
[2017-03-12] MEDS: OMEPRAZOLE 20 MG CAP PO SCH (08:17)
[2017-03-12] MEDS: APIXABAN 2.5 MG TAB (ELIQUIS) PO SCH ×3 (08:17→21:12)
[2017-03-12] MEDS: CETIRIZINE (ZyrTEC) 10 MG TAB PO SCH (08:17)
[2017-03-12] MEDS: hydroCHLOROthiazide 12.5 MG CAPSULE PO SCH (08:17)
[2017-03-12] MEDS: DOCUSATE SODIUM 100 MG CAP PO SCH ×3 (08:17→21:12)
[2017-03-12] MEDS: METOPROLOL TART 25 MG TABLET PO SCH ×3 (09:22→21:12)
[2017-03-12] MEDS ORDERED: ELIQ2.5T PO (10:23)
--- NOTE | 2017-03-12 11:08 | ECGEPIP ---
Stationary ECG Study [facility] Test Date: 2017-03-12 Pat Name: MARIO HASKINS Department: Room: [place] [address] Gender: M [employer]: : 1930 Requested By: FRANCIS WISDOM Order Number: [id number] Reading MD: Christian Mcginnis Measurements Intervals [place] Rate: 140 P: SD: 0 QRS: -2 QRSD: 90 T: 1 QT: 285 QTc: 436 Interpretive Statements ATRIAL FIBRILLATION WITH RAPID VENTRICULAR RESPONSE [address]-T abnormalities. Atrial fibrillation new compared with 12/22/2016. Electronically Signed On 03-12-2017 11:08:23 EDT by Christian Mcginnis
--- NOTE | 2017-03-12 11:09 | ECGEPIP ---
Stationary ECG Study [facility] Test Date: 2017-03-12 Pat Name: MARIO HASKINS Department: Room: Y0946-62 Gender: M [place]: VINOD : 1930 Requested By: EDIE MAXWELL Order Number: [id number] Reading MD: Christian Mcginnis Measurements Intervals [place] Rate: 77 P: 65 MT: 234 QRS: -8 QRSD: 97 T: 30 QT: 364 QTc: 413 Interpretive Statements SINUS RHYTHM WITH FIRST DEGREE AV BLOCK Nonspecific T-wave abnormalities. No longer in atrial fibrillation in comparison to 03/12/2017 at 5:51 AM. Electronically Signed On 03-12-2017 11:09:19 EDT by Christian Mcginnis
--- NOTE | 2017-03-12 12:46 | IPNPDOC ---
Assessment/Plan Date Seen The patient was seen on 03/12/17. Plan/VTE VTE Prophylaxis Ordered?: Yes VTE Exclusion Mechanical Proph: N/A:VTE Prophy Ordered Plan/Urinary Catheter Urinary Catheter: D/C Randle Reason for insertion/continuin: Acute obstruct/retention Subjective Review oF Systems Chief Complaint The patient is a 86-year-old male admitted with a reason for visit of Renal Mass s/p left RALN (03/10/17); DM; hypercholesterolemia; GERD; TIA. po, flatus. AUR (03/11/17) requiring randle insertion. New onset AFIB and mental status changes this am per . Hospitalist evaluation appreciated. Comfortable. A, Ox2. 66, 18, 119/61, 97.8f. Abdo: Benign. Wound clean. Randle 300cc/5hr. (03/12/17) Hg 11.3, wbc 9.3, Cr 2.47 (rise). A: Above; AFIB; delirium? P: Eliquis per Hospitalist. MRI brain stat. Cardiology consultation. Objective Physical Examination General Exam: Alert, Cooperative, No Acute Distress ABDOMEN EXAM: Soft, Tenderness (appropriately tender; mildly distended), Other (incisions clean/dry/intact) Skin Exam: Nl turgor and temperature Psych Exam: Mental status NL, Mood NL Vital Signs/I&O Vital Signs Date Time Temp Pulse Resp B/P (MAP) Pulse Ox O2 Delivery O2 Flow Rate FiO2 03/12/17 11:50 97.8 66 18 119/61 (80) 97 Nasal Cannula 2.0 I&O- Last 24 Hours up to 6 AM 03/12/17 06:00 Intake Total 2080 ml Output Total 2125 ml Balance -45 ml Laboratory Data Labs 24H Laboratory Tests 2 03/11/17 16:31: Bedside Glucose (Misc Panel) 147H 03/11/17 20:52: Bedside Glucose (Misc Panel) 137H 03/12/17 05:47: Anion Gap 9, Glomerular Filtration Rate 26.6L, Blood Urea Nitrogen 24H, Creatinine 2.47H, Sodium Level 138, Potassium Level 4.1, Chloride Level 101, Carbon Dioxide Level 28, Calcium Level 7.8L, Total Creatine Kinase 525H, Creatine Kinase MB 5.6H, Creatine Kinase MB Relative Index 1.06, Troponin I < 0.02 03/12/17 12:08: CBC/BMP Laboratory Tests 03/12/17 05:47 Red Blood Count 3.52 L, Mean Corpuscular Volume 92.2, Mean Corpuscular Hemoglobin 32.0, Mean Corpuscular Hemoglobin Concent 34.7, Red Cell Distribution Width 13.3, Calcium Level 7.8 L FSBS Laboratory Tests Test 03/11/17 16:31 03/11/17 20:52 Range/Units Bedside Glucose (Misc Panel) 147 137 83-110 MG/DL FRANCIS WISDOM MD March 12, 2017 12:46
--- NOTE | 2017-03-12 14:39 | IPN ---
DATE: 03/12/2017 Patient seen and examined. No acute events overnight. Denies any chest pain, pressure or discomfort. Denies any palpitations, focal weakness. <<0:21>> Patient seems a little bit confused. Knows that he is in the hospital, but does not know that he is in the room. Noticed that the patient's speech is a little bit slurred. Other than that, no focal deficits. Denies any significant pain. VITAL SIGNS: Temperature 97.8, pulse 66, respirations 18, blood pressure 119/61, pulse oximetry 97% on 2 liters nasal cannula. TELEMETRY: Patient was atrial fibrillation with rapid ventricular response overnight. LABORATORY: WBC 9.3, hemoglobin and hematocrit (H H) 11.3/32.4, platelets 156. Chemistry: Sodium 138, potassium 4.1, chloride 101, bicarbonate 28, BUN 24, creatinine 0.47. Troponin negative times two. Thyroid stimulating hormone (TSH) was within normal limits. PHYSICAL EXAMINATION: GENERAL: Patient alert and oriented times three. No acute distress. HEENT: Normocephalic, atraumatic. PULMONARY: Bilateral clear to auscultation. No wheezing, rales or rhonchi. CARDIAC: Regular rate and rhythm. No murmurs detected. ABDOMEN: Obese, soft, nontender. Positive bowel sounds. EXTREMITIES: No edema bilateral lower extremities. NEUROLOGIC: Cranial nerves II-XII grossly intact Able to move all four extremities. ASSESSMENT AND PLAN: This is an 86-year-old male patient with underlying medical history of hypertension, diabetes, dyslipidemia, gastroesophageal reflux disease (GERD), chronic kidney disease (CKD) stage III, postoperative day #2 for a left radical nephrectomy, has been consulted for atrial fibrillation with rapid ventricular response. PROBLEMS: 1. New onset of atrial fibrillation with rapid ventricular response. Patient asymptomatic. Given Lopressor overnight. Hemodynamically stable. Currently on Lopressor 25 mg by mouth twice a day. In sinus rhythm. Patient's [id number] score of 4 requiring anticoagulation. Placed on Eliquis. Patient and Family Services (PFS) for Eliquis prior authorization. THS negative. Patient will be referred for outpatient cardiology followup. Continue telemetry monitoring. Case discussed with Dr. Segura. 2. Encephalopathy. As per family, patient was having slurred speech. No focal neurological deficits. Given history of transient ischemic attack (TIA). Possible differential includes TIA versus cerebrovascular accident (CVA) versus delirium. Will obtain MRI of the brain. Patient on Eliquis for anticoagulation for atrial fibrillation. Continue to monitor with neurological checks. Unknown last normal, but currently seems to be almost back to baseline. 3. Diabetes mellitus type 2. Agree with current regimen. Continue insulin regimen. Follow up fingersticks. Adjust as needed. 4. Acute on chronic renal insufficiency. Patient is status post nephrotomy. Further management is per nephrology team. 5. Gastroesophageal reflux disease (GERD). Continue proton pump inhibitor (PPI). 6. Dyslipidemia. Continue statin. 7. Hypertension. Patient on Lopressor. Hydrochlorothiazide on hold given increasing kidney function. 8. Benign prostatic hypertrophy (BPH). Continue current medication. 9. Deep venous thrombosis (DVT) prophylaxis. Patient on Eliquis. DISPOSITION PLANNING: Pending further workup, MRI, disposition as per primary team.
--- NOTE | 2017-03-12 14:51 | REP ---
MRI BRAIN WITHOUT CONTRAST: TECHNIQUE: Axial and sagittal sequences obtained without intravenous Gadolinium. COMPARISON: 07/23/2016. Moderate atrophy is again seen. There are chronic small vessel ischemic changes fairly symmetrically in the periventricular white matter bilaterally. These appear stable. No acute findings are seen. There is no evidence of acute infarct on the ADC or DWI images. No abnormal signal is seen in the region of the paranasal sinuses. The seventh and eighth cranial nerve complexes appear unremarkable. 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 IMPRESSION: Atrophy and chronic ischemic changes appear stable. No acute infarct. Signed by Gumaro Warner MD 03/12/2017 07:58 P
[2017-03-12] MEDS: SIMVASTATIN 40 MG TAB PO SCH ×2 (21:00→21:12)
[2017-03-12] MEDS: TAMSULOSIN 0.4 MG CAP PO SCH ×2 (21:00→21:12)
[2017-03-13] VITALS (15 sets, daily range): BP systolic 140–154; BP diastolic 60–77; O2SAT 93–97
--- NOTE | 2017-03-13 08:45 | IPNPDOC ---
Assessment/Plan Date Seen The patient was seen on 03/13/17. Patient Summary This is an 86 y/o M POD3 s/p left robotic radical nephrectomy. Yesterday the patient had the onset of a fib w/ RVR, now in sinus on a beta khalida. He also had MS changes and his MRI was negative. This is likely due to delirium. He seemed better this am. Labs have not been drawn yet since patient refused the draw this morning. After discussing this w/ him, he states that he will allow it to be done. His UOP over the last day has been very good. Plan/VTE VTE Prophylaxis Ordered?: Yes VTE Exclusion Mechanical Proph: N/A:VTE Prophy Ordered Plan/Urinary Catheter Urinary Catheter: Other Catheter: (keep catheter in place for now given postop urinary retention) Reason for insertion/continuin: Acute obstruct/retention Plan - appreciate hospitalist service help w/ a fib and delirium - continue management per hospitalist service - continue flomax and catheter for postop urinary retention - percocet prn pain - ambulate - incentive spirometry - diabetic diet Subjective Review oF Systems Chief Complaint The patient is a 86-year-old male admitted with a reason for visit of Renal Mass. Events since Last Encounter The patient had an episode of confusion o/n and therefore refused medications. He is more oriented this morning but still refused lab draws. He is very frustrated and wants to go home. He notes that his pain is well-controlled. He denies chest pain or SOB. Denies n/v. He is passing flatus. No f/c/ns. Objective Physical Examination General Exam: Alert, Cooperative ABDOMEN EXAM: Soft, Tenderness (appropriately tender), Other (incisions clean/ dry/intact) Skin Exam: Nl turgor and temperature Psych Exam: Mental status NL, Mood NL Other physical findings catheter draining clear urine Vital Signs/I&O Vital Signs Date Time Temp Pulse Resp B/P (MAP) Pulse Ox O2 Delivery O2 Flow Rate FiO2 03/13/17 08:00 98.7 74 19 140/60 (86) 97 Room Air 03/13/17 06:00 2.0 I&O- Last 24 Hours up to 6 AM 03/13/17 06:00 Intake Total 1675 ml Output Total 1425 ml Balance 250 ml Laboratory Data Labs 24H Laboratory Tests 2 03/12/17 12:08: Total Creatine Kinase 471H, Creatine Kinase MB 4.9H, Creatine Kinase MB Relative Index 1.04, Troponin I 0.03#, Thyroid Stimulating Hormone (TSH) 3.230 03/12/17 17:52: Total Creatine Kinase 421H, Creatine Kinase MB 4.1H, Creatine Kinase MB Relative Index 0.97, Troponin I 0.02# SALTY HARVEY MD March 13, 2017 08:45
[2017-03-13 09:27] LABS: MEAN CORPUSCULAR HEMOGLOBIN 32.3 pg (27.0-33.0); MEAN CORPUSCULAR HGB CONC 34.2 g/dl (32.0-36.5); MEAN CORPUSCULAR VOLUME 94.4 fl (80.0-96.0); WHITE BLOOD COUNT 7.6 K/mm3 (4.0-10.0)
[2017-03-13] MEDS: DONEPEZIL 5 MG TAB PO SCH (09:38)
[2017-03-13] MEDS: DOCUSATE SODIUM 100 MG CAP PO SCH ×3 (09:38→20:56)
[2017-03-13] MEDS: METOPROLOL TART 25 MG TABLET PO SCH ×2 (09:38→20:51)
[2017-03-13] MEDS: OMEPRAZOLE 20 MG CAP PO SCH (09:39)
[2017-03-13] MEDS: APIXABAN 2.5 MG TAB (ELIQUIS) PO SCH ×2 (09:39→20:51)
[2017-03-13] MEDS: CETIRIZINE (ZyrTEC) 10 MG TAB PO SCH (09:39)
[2017-03-13 10:04] LABS: CALCIUM LEVEL 6.5 MG/DL (8.8-10.2); CREATININE FOR GFR 1.78 MG/DL (0.70-1.30); GLOMERULAR FILTRATION RATE 38.9 (>35); POTASSIUM SERUM 3.4 MEQ/L (3.5-5.1)
[2017-03-13] MEDS: HumaLOG INSULIN (NovoLOG) PER UNIT SC SCH ×4 (11:27→20:13)
[2017-03-13] MEDS ORDERED: METO25TAB PO (12:07)
[2017-03-13] MEDS: TAMSULOSIN 0.4 MG CAP PO SCH (20:51)
[2017-03-13] MEDS: SIMVASTATIN 40 MG TAB PO SCH (20:51)
[2017-03-14] VITALS (14 sets, daily range): BP systolic 141–156; BP diastolic 72–80; O2SAT 93–96
[2017-03-14 05:50] LABS: MEAN CORPUSCULAR HEMOGLOBIN 32.1 pg (27.0-33.0); MEAN CORPUSCULAR HGB CONC 35.5 g/dl (32.0-36.5); MEAN CORPUSCULAR VOLUME 90.4 fl (80.0-96.0); RED CELL DISTRIBUTION WIDTH 13.2 % (11.5-14.5); WHITE BLOOD COUNT 7.8 K/mm3 (4.0-10.0)
[2017-03-14 06:09] LABS: CALCIUM LEVEL 7.7 MG/DL (8.8-10.2); CREATININE FOR GFR 2.17 MG/DL (0.70-1.30); GLOMERULAR FILTRATION RATE 30.9 (>35); POTASSIUM SERUM 3.8 MEQ/L (3.5-5.1)
--- NOTE | 2017-03-14 07:43 | IPNPDOC ---
Assessment/Plan Date Seen The patient was seen on 03/14/17. Patient Summary This is an 86 y/o M POD4 s/p left robotic radical nephrectomy. His stay was complicated by a fib w/ RVR. This is being rate controlled on a beta khalida. He has also been on eliquis since Monday. He has a subQ hematoma under his extraction incision but his Hb has been stable. His MS changes which he experienced a day ago have resolved. His Cr is 2.2 and his UOP has been excellent. Plan/VTE VTE Prophylaxis Ordered?: Yes VTE Exclusion Mechanical Proph: N/A:VTE Prophy Ordered Plan/Urinary Catheter Urinary Catheter: D/C Randle Plan - no flomax for 3 days now for postop retention likely due to BPH - d/c randle this morning - percocet prn pain - a fib management per hospitalist service - appreciate assistance - ambulate - SCDs - incentive spirometry - discharge home later today after patient voids - f/u w/ me on Subjective Review oF Systems Chief Complaint The patient is a 86-year-old male admitted with a reason for visit of Renal Mass. Events since Last Encounter No acute events o/n. Pain well-controlled. No chest pain or SOB. Tolerating a regular diet. No n/v. No f/c/ns. Objective Physical Examination General Exam: Alert, Cooperative ABDOMEN EXAM: Soft, Tenderness (mildly tender), Other (incisions clean/dry/ intact; subcutaneous hematoma underneath extraction incision) Skin Exam: Nl turgor and temperature Psych Exam: Mental status NL, Mood NL Other physical findings catheter draining clear urine Vital Signs/I&O Vital Signs Date Time Temp Pulse Resp B/P (MAP) Pulse Ox O2 Delivery O2 Flow Rate FiO2 03/14/17 06:00 94 Room Air 03/14/17 04:43 20 03/14/17 04:00 97.4 65 156/80 (105) 03/13/17 12:00 0.0 I&O- Last 24 Hours up to 6 AM 03/14/17 06:00 Intake Total 1550 ml Output Total 900 ml Balance 650 ml Laboratory Data Labs 24H Laboratory Tests 2 03/13/17 09:00: Anion Gap 10, Glomerular Filtration Rate 38.9, Blood Urea Nitrogen 24H, Creatinine 1.78H, Sodium Level 142, Potassium Level 3.4L, Chloride Level 110H, Carbon Dioxide Level 22, Calcium Level 6.5#L 03/13/17 12:11: Bedside Glucose (Misc Panel) 169H 03/13/17 16:35: Bedside Glucose (Misc Panel) 183H 03/13/17 20:05: Bedside Glucose (Misc Panel) 244H 03/14/17 05:34: Anion Gap 7L, Glomerular Filtration Rate 30.9L, Blood Urea Nitrogen 29H, Creatinine 2.17H, Sodium Level 138, Potassium Level 3.8, Chloride Level 104, Carbon Dioxide Level 27, Calcium Level 7.7#L CBC/BMP Laboratory Tests 03/13/17 09:00 Red Blood Count 2.99 L, Mean Corpuscular Volume 94.4, Mean Corpuscular Hemoglobin 32.3, Mean Corpuscular Hemoglobin Concent 34.2, Red Cell Distribution Width 13.0, Calcium Level 6.5 #L 03/13/17 16:26 03/14/17 05:34 Red Blood Count 3.26 L, Mean Corpuscular Volume 90.4, Mean Corpuscular Hemoglobin 32.1, Mean Corpuscular Hemoglobin Concent 35.5, Red Cell Distribution Width 13.2, Calcium Level 7.7 #L FSBS Laboratory Tests Test 03/13/17 12:11 03/13/17 16:35 03/13/17 20:05 Range/Units Bedside Glucose (Misc Panel) 169 183 244 83-110 MG/DL SALTY HARVEY MD March 14, 2017 07:43
[2017-03-14] MEDS: OMEPRAZOLE 20 MG CAP PO SCH (08:05)
[2017-03-14] MEDS: DOCUSATE SODIUM 100 MG CAP PO SCH ×2 (08:05→09:00)
[2017-03-14] MEDS: CETIRIZINE (ZyrTEC) 10 MG TAB PO SCH (08:06)
[2017-03-14] MEDS: DONEPEZIL 5 MG TAB PO SCH (08:06)
[2017-03-14] MEDS: APIXABAN 2.5 MG TAB (ELIQUIS) PO SCH (08:06)
[2017-03-14] MEDS: HumaLOG INSULIN (NovoLOG) PER UNIT SC SCH (08:06)
[2017-03-14] MEDS: METOPROLOL TART 25 MG TABLET PO SCH (08:07)
--- NOTE | 2017-03-14 08:20 | ECHO ---
DATE OF PROCEDURE: 03/12/[address] Arabella Hooker Study was performed on 03/12/2017 for indication of new atrial fibrillation. The patient measures 178 cm and weighs 83 kg. DIMENSIONS: IVS 1.0 LV 4.1 LVPW 1.0 LA 3.8 Aorta 3.3 FINDINGS: This study is of fair technical quality with somewhat limited views but useful information were obtained. Of note, the patient is in sinus rhythm during the study. Left ventricle is of normal size and systolic function with estimated EF 60-65%. I do not appreciate any segmental wall motion abnormalities based on fair views. Right ventricle does not appear enlarged. Both atria appear grossly normal. Aortic valve appears mildly sclerotic but is probably normal for patient's age. Mitral and tricuspid valves appear normal. Pulmonic valve was not well seen. No pericardial effusion is noted. Inferior vena cava is mildly dilated but collapses with respiration indicative of likely mildly elevated central venous pressure. Aortic root is normal. Aortic arch and abdominal aorta were not visualized. Doppler interrogation: There is no significant aortic stenosis or insufficiency. There is mild mitral insufficiency and a mild tricuspid insufficiency. Calculated pulmonary artery pressure is in 30s corresponding to mild pulmonary hypertension. Mitral inflow pattern and tissue Doppler imaging of mitral annulus reveal likely grade 2 diastolic dysfunction (mitral E velocity 75 cm/sec, E prime septal 7.9, A prime lateral 9.8 cm/sec). CONCLUSIONS: 1. Study is of fair technical quality. 2. Normal LV size and systolic function, probably grade 2 diastolic dysfunction. 3. No significant valvular disease. 4. Probably mildly elevated central venous pressure and suggestive of mild pulmonary hypertension. COMMENT: SBE prophylaxis is not recommended. MTDD
[2017-03-14] MEDS ORDERED: OXYC1TAB23 PO ×2 (11:00)
[2017-03-14] MEDS ORDERED: FLOM5CAP PO (11:00)
[2017-03-14] MEDS ORDERED: ACET-654 PO (11:50)
--- NOTE | 2017-03-14 18:19 | IPN ---
DATE: 03/13/2017 SUBJECTIVE: Mr. Lindsay is an 86-year-old male who was seen and examined at the bedside. The patient denies overnight issues. The patient also denies palpitations, racing or skipping heart beat. The patient also denies nausea, vomiting, diarrhea, constipation. Today, however, the patient expressed that he had one episode of diarrhea yesterday. However, this is chronic for him. OBJECTIVE: VITAL SIGNS: Temperature 98.7, pulse 74, respiratory rate 19, blood pressure 140/60, pulse oximetry 97% on room air. Total intake from yesterday 2064, total output 2200. GENERAL APPEARANCE: The patient was lying in bed in no acute distress. The patient was awake, alert, and oriented to time, place, and person. HEENT: Normocephalic, atraumatic. Pupils are equal and reactive to light. Oral mucosa moist. LUNGS: Clear breath sounds bilaterally. Good air movement. No rales or rhonchi. CARDIAC: Regular rate and rhythm. Normal S1, S2. ABDOMEN: Soft. Tender to palpation on the left upper and lower quadrants due to surgical area which is proportionate to the surgical area. Positive bowel sounds in all quadrants. EXTREMITIES: No lower extremity edema. Plus two pulses in both lower extremities. LABORATORY DATA: White blood cells 7.6, red blood cells 2.99, hemoglobin 9.7, hematocrit 28.2, MCV 94.4, MCH 32.3, MCHC 34.2, RDW 13, platelet count 153. Sodium 142, potassium 3.4, chloride 110, carbon dioxide 22, anion gap 10, BUN 24, creatinine 1.78, glomerular filtration rate 38.9, fasting glucose 107, calcium 6.5. ASSESSMENT AND PLAN: 1. Anemia. Today the patient's hemoglobin and hematocrit have decreased compared to yesterday. This is possibly secondary to intravenous (IV) fluid and less likely due to bleeding secondary to surgical site. At this time, we have stopped IV fluid. We will check the hemoglobin and hematocrit at 5 p.m. 2. New-onset of atrial fibrillation with rapid ventricular response. The patient is asymptomatic. Patient was medically stable. At this time, the patient is on Eliquis. I have spoken with patient and family services (PFS) for prior authorization to continue patient on Eliquis. The patient will be referred to [facility] specialist and follow as an outpatient. 3. Encephalopathy. Differential diagnosis includes transient ischemic attack (TIA) versus cerebrovascular accident (CVA) versus delirium. The patient had the MRI of the brain without contrast which was done yesterday, and shows atrophy and chronic ischemic changes which appear stable; however, no acute infarct was noticed. Today, the patient is baseline based upon the patient's . We will continue to monitor patient for any abnormal symptoms. 4. Diabetes mellitus. We will continue patient on sliding scale. 5. Acute on chronic renal insufficiency. The patient's creatinine level has decreased today and glomerular filtration rate has increased to 38.9. The patient is status post nephrectomy, awaiting for further recommendation from deck hand. 6. Gastroesophageal reflux disease (GERD). We will continue the patient on proton pump inhibitor (PPI). 7. Dyslipidemia. The patient is on statin. 8. Hypertension. The patient on Lopressor. The patient was on hydrochlorothiazide; however, we held this because of abnormal kidney function. 9. Benign prostatic hypertrophy (BPH). We will continue the patient on Flomax. 10. Allergies. We will continue the patient on Zyrtec. 11. Deep venous thrombosis (DVT) prophylaxis. The patient is on Eliquis. My preceptor for this patient encounter was Dr. Delilah Butler. The preceptor was physically present in the building during the encounter and was fully available as needed. All aspects of the patient interview, examination, medical decision making process, and medical care plan development were reviewed and approved by the preceptor. The preceptor is aware and concurs with the plan as stated in the body of this note and will attest to such by his/her co-signature.
--- NOTE | 2017-03-14 23:26 | DSES ---
DATE OF ADMISSION: 03/10/2017 DATE OF DISCHARGE: 03/14/2017 ADMISSION DIAGNOSIS: Left renal mass. DISCHARGE DIAGNOSIS: Left renal mass. ADDITIONAL DISCHARGE DIAGNOSIS: Atrial fibrillation. ADMITTING PHYSICIAN: Monroe Guevara MD DISCHARGE PHYSICIAN: Monroe Guevara MD PROCEDURES PERFORMED: Left robotic-assisted laparoscopic radical nephrectomy. HISTORY OF PRESENT ILLNESS: This is an 86-year-old male who was found to have a 4.5 cm enhancing left renal mass concerning for cancer. This mass was completely endophytic and given its location, it was recommended that he undergo the above listed procedure with treatment. He was admitted to the hospital postoperatively. HOSPITALIZATION COURSE: The patient was admitted to the hospital after undergoing the above listed procedure. His postoperative course went well at first, and then it was complicated by atrial fibrillation with rapid ventricular response on postoperative day #2. He also had postoperative urinary retention, for which a catheter had to be replaced. For the atrial fibrillation, the hospitalist service was consulted and they placed him on a beta-khalida and got him back in sinus rhythm. It was also recommended that he start Eliquis given new onset atrial fibrillation and they did this. His hemoglobin remained stable throughout his stay after starting the Eliquis. By postoperative days #3 and #4, the patient started to improve. He did have some mental status changes on postoperative day #2, and an MRI was obtained and it was unremarkable. The patient's urine output was excellent throughout his stay. His kidney function as measured by serum creatinine ultimately plateaued at 2.2. By postoperative day #4, the patient was ambulating well and tolerating regular diet. He remained in a sinus rhythm, and his mental status changes had resolved. He was, therefore, deemed ready for discharge on postoperative day #4. He was, therefore, discharged home in good condition and with the plan to followup in clinic in a few days.
== END 2017-03-14 13:30 | disposition home health service (06) | DRG 658 ==
LOC: M OR 03-10 06:50 → M PCU 03-10 16:40
PROVIDERS: ADMIT Urology; ATTEND Urology
PROC: 07BC4ZX Excision of Pelvis Lymphatic, Percutaneous Endoscopic Approach, Diagnostic (ICD-10-PCS; 2017-03-10)
PROC: 8E0W4CZ Robotic Assisted Procedure of Trunk Region, Percutaneous Endoscopic Approach (ICD-10-PCS; 2017-03-10)
PROC: 0TT14ZZ Resection of Left Kidney, Percutaneous Endoscopic Approach (ICD-10-PCS; principal; 2017-03-10 08:30)
DX: C64.2 Malignant neoplasm of left kidney, except renal pelvis (principal); F17.290 Nicotine dependence, other tobacco product, uncomplicated; E11.9 Type 2 diabetes mellitus without complications; N18.3 Chronic kidney disease, stage 3 (moderate); I48.91 Unspecified atrial fibrillation; I12.9 Hypertensive chronic kidney disease with stage 1 through stage 4 chronic kidney disease, or unspecified chronic kidney disease; R41.82 Altered mental status, unspecified; E78.5 Hyperlipidemia, unspecified; K21.9 Gastro-esophageal reflux disease without esophagitis; Z90.49 Acquired absence of other specified parts of digestive tract; Z82.49 Family history of ischemic heart disease and other diseases of the circulatory system; Z88.8 Allergy status to other drugs, medicaments and biological substances; Z79.82 Long term (current) use of aspirin

== ENCOUNTER → 2017-03-16 | Outpatient (CLI) | payer MEDICARE, OTHER ==
[~2017-03-16] MED LIST changes: +ACET-654 PO; +AQUAOIN2 EXT; +ASPI81CH PO; +ASPI81TAEC PO; +DONEPEZIL; +DOXE10CA PO; +ELIQ2.5T PO; +FLOM5CAP PO; +FLUT0.003 EXT; +GLIP2.5T2; +GLIP5TAB8 PO; +IPRA6SP; +METO12TA PO; +METO25TAB PO; +NORV5TAB PO; +OMEP40CA2 PO; +OXYC1TAB23 PO; +POTA20TA PO
[2017-03-16 13:20] LABS: MEAN CORPUSCULAR HEMOGLOBIN 32.8 pg (27.0-33.0); MEAN CORPUSCULAR HGB CONC 36.3 g/dl (32.0-36.5); MEAN CORPUSCULAR VOLUME 90.2 fl (80.0-96.0); RED CELL DISTRIBUTION WIDTH 13.4 % (11.5-14.5); WHITE BLOOD COUNT 8.4 K/mm3 (4.0-10.0)
[2017-03-16 13:40] LABS: CALCIUM LEVEL 8.5 MG/DL (8.8-10.2); CREATININE FOR GFR 2.19 MG/DL (0.70-1.30); GLOMERULAR FILTRATION RATE 30.6 (>35); POTASSIUM SERUM 3.8 MEQ/L (3.5-5.1)
== END ==
LOC: M SMT 10:14
PROVIDERS: ATTEND Urology
DX: C64.9 Malignant neoplasm of unspecified kidney, except renal pelvis (principal); Z90.5 Acquired absence of kidney

== ENCOUNTER → 2017-03-20 | Outpatient (REF) | payer MEDICARE, OTHER ==
[2017-03-20 16:07] LABS: MEAN CORPUSCULAR HEMOGLOBIN 31.8 pg (27.0-33.0); MEAN CORPUSCULAR VOLUME 90.7 fl (80.0-96.0); RED CELL DISTRIBUTION WIDTH 13.9 % (11.5-14.5); WHITE BLOOD COUNT 9.9 K/mm3 (4.0-10.0)
[2017-03-20 16:15] LABS: CALCIUM LEVEL 8.4 MG/DL (8.8-10.2); CREATININE FOR GFR 2.27 MG/DL (0.70-1.30); GLOMERULAR FILTRATION RATE 29.4 (>35); POTASSIUM SERUM 4.3 MEQ/L (3.5-5.1)
== END ==
LOC: M SFHCPLAZ 13:46
PROVIDERS: ATTEND Internal Medicine
DX: C64.2 Malignant neoplasm of left kidney, except renal pelvis (principal); E87.6 Hypokalemia
CPT/HCPCS: 36415; 80048; 85027; 99496; G0463

== ENCOUNTER → 2017-03-28 | Outpatient (REF) | payer MEDICARE, OTHER ==
[~2017-03-28] MED LIST changes: -AQUAOIN2 EXT; -ASPI81TAEC PO; -FLUT0.003 EXT; -IPRA6SP; -METO12TA PO; -NORV5TAB PO; -OMEP40CA2 PO
[2017-03-28 17:14] LABS: MEAN CORPUSCULAR HEMOGLOBIN 31.6 pg (27.0-33.0); MEAN CORPUSCULAR HGB CONC 33.9 g/dl (32.0-36.5); MEAN CORPUSCULAR VOLUME 93.1 fl (80.0-96.0); RED CELL DISTRIBUTION WIDTH 13.3 % (11.5-14.5); WHITE BLOOD COUNT 11.2 K/mm3 (4.0-10.0)
[2017-03-28 17:22] LABS: CALCIUM LEVEL 8.9 MG/DL (8.8-10.2); CREATININE FOR GFR 2.59 MG/DL (0.70-1.30); GLOMERULAR FILTRATION RATE 25.2 (>35); POTASSIUM SERUM 4.7 MEQ/L (3.5-5.1)
== END ==
LOC: M SFHCCLAY 10:39
PROVIDERS: ATTEND Internal Medicine
DX: C64.2 Malignant neoplasm of left kidney, except renal pelvis (principal); N18.3 Chronic kidney disease, stage 3 (moderate)

== ENCOUNTER 2017-04-01 05:28 | Emergency (ER) | payer MEDICARE, OTHER ==
[~2017-04-01 05:28] MED LIST changes: -ASPI81CH PO; -DONEPEZIL; -DOXE10CA PO; -GLIP2.5T2; -GLIP5TAB8 PO; -POTA20TA PO
[2017-04-01] MEDS ORDERED: TETANUS/DIPHTHERIA TOX ADSORB ADULT 0.5ML SYR/VIAL (90714) IM ONE (06:00)
[2017-04-01] MEDS ORDERED: POTA20TA PO (06:07)
[2017-04-01] MEDS ORDERED: GLIP2.5T2 (06:07)
[2017-04-01] MEDS ORDERED: DONEPEZIL (06:07)
[2017-04-01] MEDS ORDERED: HYDR12.55 PO (06:07)
[2017-04-01] MEDS ORDERED: DOXE10CA PO (06:07)
--- NOTE | 2017-04-01 06:41 | REPUSA ---
CLINICAL HISTORY: Trauma. TECHNIQUE: Multiple axial CT images were obtained through the brain without IV contrast material. COMMENTS: There is normal configuration of sella turcica. There are no intra or extra-axial collections. There is no mass effect or midline shift. There is no evidence of hematoma formation. No hydrocephalus is p resent. The ventricles are symmetrical. No abnormal calcifications are present. There is diffuse age-appropriate cerebellar and cerebral atrophy with proportionally dilated ventricl es and cortical sulci. There are bilateral periventricular and subcortical white matter hypolucencies compatible with mild c hronic microvascular disease. Otherwise, no significant focal abnormalities are seen either in the posterior fossa or supratentoria l compartment. IMPRESSION: 1. Age-appropriate cerebellar and cerebral atrophy. 2. Mild chronic microvascular disease. 3. No evidence of acute intracranial pathology. No change is noted since the prior exam on 07/22/2016. Thank you for your kind referral of this patient.
[2017-04-01 07:45] VITALS: BP 117/58
== END 2017-04-01 07:44 | disposition home or self-care (01) ==
LOC: EDBD 05:28 → M ED 06:49
DX: S50.811A Abrasion of right forearm, initial encounter (principal); W01.198A Fall on same level from slipping, tripping and stumbling with subsequent striking against other object, initial encounter; Y92.091 Bathroom in other non-institutional residence as the place of occurrence of the external cause; Y93.89 Activity, other specified; Y99.9 Unspecified external cause status

== ENCOUNTER 2017-04-10 14:49 | Inpatient (IN) | payer MEDICARE, OTHER ==
[2017-04-10] VITALS (7 sets, daily range): BP systolic 95–139; BP diastolic 53–82
[~2017-04-10] VITALS: Ht 180.3 cm; Wt 93.3 kg
[~2017-04-10 14:49] MED LIST changes: -AQUAOIN2 EXT; -ASPI81CH PO; -ASPI81TAEC PO; -FLUT0.003 EXT; -GLIP5TAB8 PO; -IPRA6SP; -METO12TA PO; -NORV5TAB PO; -OMEP40CA2 PO
[2017-04-10] MEDS ORDERED: GLIP5TAB8 PO (17:39)
[2017-04-10 18:21] LABS: BASO # 0.1 K/mm3 (0.0-0.2); BASO % 0.7 % (0.0-1.0); EOS # 0.5 K/mm3 (0.0-0.50); EOS % 5.4 % (0.0-3.0); LARGE UNSTAINED CELL # 0.1 K/mm3 (0.0-0.4); LARGE UNSTAINED CELL % 1.2 % (0.0-4.0); LYMPH # 1.3 K/mm3 (1.5-4.5); LYMPH % 13.6 % (24.0-44.0); MEAN CORPUSCULAR HEMOGLOBIN 31.4 pg (27.0-33.0); MEAN CORPUSCULAR HGB CONC 35.1 g/dl (32.0-36.5); MEAN CORPUSCULAR VOLUME 89.6 fl (80.0-96.0); MONO # 0.4 K/mm3 (0.0-0.8); MONO % 4.7 % (0.0-5.0); NEUTROPHILS # 6.3 K/mm3 (1.8-7.7); NEUTROPHILS % 74.4 % (36.0-66.0); PLATELET COUNT, AUTOMATED 268 k/mm3 (150-450); RED CELL DISTRIBUTION WIDTH 13.3 % (11.5-14.5); WHITE BLOOD COUNT 8.4 K/mm3 (4.0-10.0)
[2017-04-10] MEDS ORDERED: OXYC1TAB23 PO (18:37)
[2017-04-10 19:01] LABS: ALBUMIN 3.4 GM/DL (3.2-5.2); ALBUMIN/GLOBULIN RATIO 1.13 (1.00-1.93); BILIRUBIN,TOTAL 0.7 MG/DL (0.2-1.0); CALCIUM LEVEL 8.6 MG/DL (8.8-10.2); CREATININE FOR GFR 2.7 MG/DL (0.70-1.30); MAGNESIUM LEVEL 1.9 MG/DL (1.8-2.4); TOTAL PROTEIN 6.4 GM/DL (6.4-8.2)
[2017-04-10 19:02] LABS: POTASSIUM SERUM 5.5 MEQ/L (3.5-5.1)
[2017-04-10] MEDS ORDERED: SOD POLYSTYRENE SULFONATE SUSP 15 GM/60 ML UD PO ONE ×2 (20:00→21:15)
[2017-04-10] MEDS ORDERED: METOPROLOL TART 25 MG TABLET PO SCH (21:00)
[2017-04-10] MEDS: HumaLOG INSULIN (NovoLOG) PER UNIT SC SCH (21:00)
[2017-04-10] MEDS ORDERED: GLUCOSE 4 GM CHEW TABLET PO PRN (21:15)
[2017-04-10] MEDS ORDERED: GLUCAGON FOR INJ 1 MG VIAL (J1610) SC PRN (21:15)
[2017-04-10] MEDS ORDERED: ONDANSETRON 4 MG TAB (S0181) PO PRN (21:15)
[2017-04-10] MEDS ORDERED: DEXTROSE 50% 50 ML SYRINGE IV PRN (21:15)
[2017-04-10] MEDS ORDERED: ONDANSETRON 4MG/2ML VIAL (J2405) IV PRN (21:15)
[2017-04-10] MEDS ORDERED: ACETAMINOPHEN TAB 650MG DOSE (2X325MG) PO PRN (21:15)
[2017-04-10] MEDS: NS 1,000 ML IV SCH (22:34)
[2017-04-10] MEDS ORDERED: ASPI81CH PO (22:43)
[2017-04-10] MEDS ORDERED: ELIQ2.5T PO (22:43)
[2017-04-10] MEDS ORDERED: METO25TAB PO (22:44)
--- NOTE | 2017-04-10 23:10 | HPEPDOC ---
Medical History and Physical Date of Admission Apr 10, 2017 at 17:19 History and Physical HISTORY AND PHYSICAL Date of admission: 04/10/2017 PCP: Dr. Dutton Chief complaint: [place] woozy and fuzzy and almost passed out HPI: 86-year-old male with hypertension, diabetes mellitus type 2, hyperlipidemia, GERD, history of renal cell carcinoma status post left nephrectomy, prostate cancer status post radiation seed therapy, recent diagnosis of atrial fibrillation, chronic kidney disease stage 3-4 who was transferred from [facility] secondary to near syncope. Patient reports that he went to his doctor this morning to have his blood drawn, and after that he and his drove over to [facility] for his therapy appointment. He was walking with the therapist when he began to feel very woozy and fuzzy, as well as sweaty. He does not believe that he completely lost consciousness, but he states that he collapsed on the ground. He did not have any head injury. The patient denies any prior episodes of syncope or near syncope. Past medical history: Hypertension, diabetes mellitus type 2, hyperlipidemia, GERD, history of renal cell carcinoma status post left nephrectomy, prostate cancer status post radiation seed therapy, recent diagnosis of A. fib, chronic kidney disease stage 3-4 Past surgical history: Left nephrectomy, appendectomy, cholecystectomy Family history: And his mother and his grandmother both lived to their mid 90s. He reports that his father of heart disease. Social history: The patient currently lives with his . He smokes an occasional pipe. He quit cigarettes in 1994. He reports drinking approximately 1 alcoholic drink monthly. Allergies: MASON inhibitor's, aminoglycosides, ARBs, bacitracin, neomycin, polymyxin Review of systems: General: Negative for fever and chills Eyes: Negative for vision changes and ocular discharge ENT: Negative for sore throat and nose bleed Cardiovascular: Negative for chest pain and palpitations Respiratory: Negative for cough and shortness of breath GI: Negative for nausea, vomiting, diarrhea, constipation Musculoskeletal: Positive for chronic back pain Skin: Negative for rash Neuro: Positive for dizziness, negative for headache, numbness, tingling Psych: Negative for depression and suicidal ideation Endocrine: Negative for polyuria : Negative for dysuria Heme: Negative for bleeding Home meds: See below Physical exam: Vital signs: Vital Sign - Last 24 Hours 6/12/17 6/12/17 6/12/17 17:30 18:00 20:00 Temp 97.4 98.1 Pulse 56 56 54 Resp 20 16 B/P (MAP) 139/82 (101) 139/82 (101) 133/63 (86) Pulse Ox 100 100 100 O2 Delivery Room Air Room Air Gen.: awake, alert, no acute distress Eyes: Extraocular movements intact, normal sclera ENT: Moist mucous membranes Cardiovascular: RRR, no murmurs rubs or gallops Lungs: clear to auscultation bilaterally, no rales, rhonchi, or wheeze Abdomen: Soft, NT/ND, normal BS Musculoskeletal: normal range of motion Extremities: No peripheral edema Neuro: alert and oriented 3, normal speech, no focal deficits Psych: Normal mood with congruent affect Labs and radiology: See below Creatinine 3.0 at [facility], 2.7 here Potassium 5.5 EKG shows normal sinus rhythm in the 50s CT of the head at [facility] was unremarkable for any acute findings Chest x-ray [facility] was also unremarkable for acute findings Assessment and plan: 86-year-old male with hypertension, diabetes mellitus type 2, hyperlipidemia, GERD, history of renal cell carcinoma status post left nephrectomy, prostate cancer status post radiation seed therapy, recent diagnosis of atrial fibrillation, chronic kidney disease stage 3-4 who was transferred from [facility] secondary to near syncope. 1. Near syncope: The patient has been noted to be in sinus rhythm. There is been no evidence of atrial fibrillation, although the patient has been mildly bradycardic in the 50s. We will monitor him on telemetry and trend troponins. We 'll check an echocardiogram and carotid ultrasound tomorrow. We will also evaluate his orthostatics. I suspect this may be secondary to dehydration as the patient has an acute on chronic kidney disease. We will hydrate him and continue to monitor his kidney function. 2. Acute on chronic kidney disease stage 3-4: The patient had a recent nephrectomy, and it appears that his creatinine was in the low twos afterward. His creatinine at [facility] was 3, and by the time he arrived here, it had improved to 2.7. We'll continue to hydrate and trend his kidney function. 3. Hyperkalemia: The patient's potassium is 5.5. He does not have any EKG changes. We will give him a dose of Kayexalate and recheck his potassium. He'll be monitored on telemetry. We will also stop the patient's home potassium replacement. 4. Hypertension: We will hold the patient's home HCTZ given his acute kidney injury. We will continue his beta khalida. 5. Diabetes mellitus type 2: We will hold the patient's home glipizide and Januvia. We will use sliding scale insulin while the patient is in house. 6. Hyperlipidemia: Continue home statin. 7. GERD: Continue home PPI. 8. Recent diagnosis of A. fib: The patient has appeared to be in sinus rhythm throughout her monitoring thus far. We will continue his home beta khalida and home. DVT prophylaxis: Home glucose Dispo: admit to the service of Dr. Ennis CODE STATUS: DNR/DNI Vital Signs Vital Signs Date Time Temp Pulse Resp B/P (MAP) Pulse Ox O2 Delivery O2 Flow Rate FiO2 04/10/17 20:00 98.1 54 16 133/63 (86) 100 Room Air Laboratory Data Labs 24H Laboratory Tests 2 04/10/17 18:08: White Blood Count 8.4, Red Blood Count 3.88L, Hemoglobin 12.2L, Hematocrit 34.8L , Mean Corpuscular Volume 89.6, Mean Corpuscular Hemoglobin 31.4, Mean Corpuscular Hemoglobin Concent 35.1, Red Cell Distribution Width 13.3, Platelet Count 268, Neutrophils (%) (Auto) 74.4H, Lymphocytes (%) (Auto) 13.6L, Monocytes (%) (Auto) 4.7, Eosinophils (%) (Auto) 5.4H, Basophils (%) (Auto) 0.7 , Neutrophils # (Auto) 6.3, Lymphocytes # (Auto) 1.3L, Monocytes # (Auto) 0.4, Eosinophils # (Auto) 0.5, Basophils # (Auto) 0.1, Large Unclassified Cells % 1.2 , Large Unclassified Cells # 0.1, Anion Gap 5L, Glomerular Filtration Rate 24.0L , Blood Urea Nitrogen 30H, Creatinine 2.70H, Sodium Level 133L, Potassium Level 5.5H, Chloride Level 102, Carbon Dioxide Level 26, Calcium Level 8.6L, Aspartate Amino Transf (AST/SGOT) 15, Alanine Aminotransferase (ALT/SGPT) 28, Alkaline Phosphatase 95, Total Bilirubin 0.7, Total Protein 6.4, Albumin 3.4, Magnesium Level 1.9, Albumin/Globulin Ratio 1.13 04/10/17 21:47: Total Creatine Kinase 52, Creatine Kinase MB 2.6, Creatine Kinase MB Relative Index 5.00H, Troponin I < 0.02 04/10/17 21:54: Bedside Glucose ([facility]) 208H CBC/BMP Laboratory Tests 04/10/17 18:08 Red Blood Count 3.88 L, Mean Corpuscular Volume 89.6, Mean Corpuscular Hemoglobin 31.4, Mean Corpuscular Hemoglobin Concent 35.1, Red Cell Distribution Width 13.3, Neutrophils (%) (Auto) 74.4 H, Lymphocytes (%) (Auto) 13.6 L, Monocytes (%) (Auto) 4.7, Eosinophils (%) (Auto) 5.4 H, Basophils (%) ( Auto) 0.7, Neutrophils # (Auto) 6.3, Lymphocytes # (Auto) 1.3 L, Monocytes # ( Auto) 0.4, Eosinophils # (Auto) 0.5, Basophils # (Auto) 0.1, Calcium Level 8.6 L , Aspartate Amino Transf (AST/SGOT) 15, Alanine Aminotransferase (ALT/SGPT) 28, Alkaline Phosphatase 95, Total Bilirubin 0.7, Total Protein 6.4, Albumin 3.4 Home Medications Scheduled (Aspirin) 81 Mg Chw, 81 MG PO DAILY Apixaban Base (Eliquis) 2.5 Mg Tab, 2.5 MG PO BID Cetirizine HCl (Cetirizine HCl) 10 Mg Tab, 10 MG PO DAILY Donepezil Hydrochloride (Aricept) 10 Mg Tab, 10 MG PO DAILY Doxepin HCl (Doxepin HCl) 10 Mg Cap, 10 MG PO DAILY Glipizide (Glipizide) 5 Mg Tab, 5 MG PO DAILY Hydrochlorothiazide (Hydrochlorothiazide) 12.5 Mg Tab, 12.5 MG PO DAILY Metoprolol Tartrate (Metoprolol Tartrate) 25 Mg Tab, 25 MG PO BID Omeprazole (Omeprazole) 20 Mg Cap, 40 MG PO DAILY Potassium Chloride (Klor-Con M20) 20 Meq Tabcr, 20 MEQ PO DAILY Simvastatin - High Dose (Simvastatin) 40 Mg Tab, 40 MG PO DAILY Sitagliptin Phosphate (Januvia) 100 Mg Tab, 50 MG PO DAILY Tamsulosin Hydrochloride (Flomax) 0.4 Mg Cap, 0.4 MG PO DAILY Allergies Coded Allergies: Aminoglycosides (Unverified Allergy, Mild, RASH, 02/20/17) Bacitracin (Unverified Allergy, Mild, RASH, 01/29/13) Neomycin (Unverified Allergy, Mild, RASH, 01/29/13) Polymyxin B (Unverified Allergy, Mild, RASH, 01/29/13) MASON Inhibitors (Unverified Allergy, Unknown, UNKNOWN, 01/29/13) Angiotensin Receptor Blockers (Verified Allergy, Unknown, 01/29/13) Lisinopril (Verified Allergy, Unknown, 01/29/13) ROJELIO DELVALLE Apr 10, 2017 23:10
[2017-04-11] VITALS: BP 142/65
[2017-04-11] MEDS: APIXABAN 2.5 MG TAB (ELIQUIS) PO SCH ×3 (00:44→20:41)
[2017-04-11 02:26] LABS: ANION GAP 6 MEQ/L (8-16); BLOOD UREA NITROGEN 31 MG/DL (7-18); CALCIUM LEVEL 8.4 MG/DL (8.8-10.2); CARBON DIOXIDE LEVEL 27 MEQ/L (21-32); CHLORIDE LEVEL 107 MEQ/L (98-107); CREATININE FOR GFR 2.49 MG/DL (0.70-1.30); GLOMERULAR FILTRATION RATE 26.4 (>35); GLUCOSE, FASTING 181 MG/DL (83-110); MAGNESIUM LEVEL 1.9 MG/DL (1.8-2.4); POTASSIUM SERUM 4.6 MEQ/L (3.5-5.1); SODIUM LEVEL 140 MEQ/L (136-145)
[2017-04-11 04:00] VITALS: BP 116/60
[2017-04-11 05:12] LABS: BASO # 0.1 K/mm3 (0.0-0.2); BASO % 0.9 % (0.0-1.0); EOS % 11.3 % (0.0-3.0); LARGE UNSTAINED CELL # 0.2 K/mm3 (0.0-0.4); LARGE UNSTAINED CELL % 1.9 % (0.0-4.0); LYMPH # 2.1 K/mm3 (1.5-4.5); LYMPH % 21.9 % (24.0-44.0); MEAN CORPUSCULAR HEMOGLOBIN 31.3 pg (27.0-33.0); MEAN CORPUSCULAR HGB CONC 34.9 g/dl (32.0-36.5); MEAN CORPUSCULAR VOLUME 89.6 fl (80.0-96.0); MONO # 0.5 K/mm3 (0.0-0.8); MONO % 5.5 % (0.0-5.0); NEUTROPHILS # 5.2 K/mm3 (1.8-7.7); NEUTROPHILS % 58.6 % (36.0-66.0); PLATELET COUNT, AUTOMATED 280 k/mm3 (150-450); RED CELL DISTRIBUTION WIDTH 13.4 % (11.5-14.5); WHITE BLOOD COUNT 8.9 K/mm3 (4.0-10.0)
[2017-04-11 05:15] LABS: INR 1.06
[2017-04-11] MEDS ORDERED: OMEP40CA2 PO (06:33)
[2017-04-11] MEDS ORDERED: ASPI81TAEC PO (06:33)
[2017-04-11] MEDS ORDERED: FLUT0.003 EXT (06:36)
[2017-04-11] MEDS ORDERED: IPRA6SP (06:36)
[2017-04-11] MEDS ORDERED: AQUAOIN2 EXT (06:36)
[2017-04-11] MEDS: HumaLOG INSULIN (NovoLOG) PER UNIT SC SCH ×4 (07:51→20:42)
[2017-04-11 08:00] VITALS: BP_SYST 117; BP_SYST 148; BP_SYST 99; BP_DIAS 57; BP_DIAS 61; BP_DIAS 70
[2017-04-11] MEDS: ASPIRIN 81 MG CHEW TABLET PO SCH (09:10)
[2017-04-11] MEDS: DONEPEZIL 5 MG TAB PO SCH (09:10)
[2017-04-11] MEDS: METOPROLOL TART 12.5 MG PER 1/2 TAB PO SCH ×2 (09:11→20:42)
[2017-04-11] MEDS: DOXEPIN 10 MG CAP PO SCH (09:11)
[2017-04-11] MEDS: CETIRIZINE (ZyrTEC) 10 MG TAB PO SCH (09:12)
[2017-04-11] MEDS: OMEPRAZOLE 20 MG CAP PO SCH (09:15)
[2017-04-11] MEDS: TAMSULOSIN 0.4 MG CAP PO SCH (09:15)
[2017-04-11] MEDS: SIMVASTATIN 40 MG TAB PO SCH (09:15)
[2017-04-11] MEDS: NS 1,000 ML IV SCH (11:30)
[2017-04-11 12:00] VITALS: BP 153/74
--- NOTE | 2017-04-11 13:17 | IPNPDOC ---
Subjective Date Seen The patient was seen on 04/11/17. Subjective Chief Complaint/HPI The patient is a 86-year-old male admitted with a reason for visit of Near Syncope. Assessment /Plan Problems (1) Near syncope Status: Acute Response to Treatment: Progressing Discussed With: Patient Problem Specific Plan: Monitor Clinically, Repeat Labs, Repeat Tests Problem Text: Appears may actually have been a syncopal episode. Multi-factorial, patient bradycardic with orthostatic hypotension. Betablocker dose halved. HCTZ on hold. Echocardiogram pending. (2) Afib Status: Chronic Discussed With: Patient Problem Specific Plan: Monitor Clinically (3) Hypertension Status: Chronic Discussed With: Patient Problem Specific Plan: Monitor Clinically (4) Diabetes Status: Chronic Discussed With: Patient (5) Hyperlipidemia Status: Chronic Discussed With: Patient (6) GERD (gastroesophageal reflux disease) Status: Chronic Discussed With: Patient Problem Specific Plan: Monitor Clinically (7) Left renal mass Status: Chronic Discussed With: Patient Problem Text: Recent left nephrectomy secondary to RCC. (8) History of prostate cancer Status: Chronic Discussed With: Patient Problem Text: Status post RT. (9) CKD (chronic kidney disease), stage III Status: Chronic Plan/VTE VTE Prophylaxis Ordered?: Yes Plan Therapy: PT Diagnostics: Repeat Labs in AM, TTE VS, I&O, 24H, Fishbone Vital Signs/I&O Vital Signs Date Time Temp Pulse Resp B/P (MAP) Pulse Ox O2 Delivery O2 Flow Rate FiO2 04/11/17 12:00 98.4 54 16 153/74 (100) 99 Room Air I&O- Last 24 Hours up to 6 AM 04/11/17 06:00 Intake Total 910 ml Output Total 600 ml Balance 310 ml Laboratory Data 24H LABS Laboratory Tests 2 04/10/17 18:08: White Blood Count 8.4, Red Blood Count 3.88L, Hemoglobin 12.2L, Hematocrit 34.8L , Mean Corpuscular Volume 89.6, Mean Corpuscular Hemoglobin 31.4, Mean Corpuscular Hemoglobin Concent 35.1, Red Cell Distribution Width 13.3, Platelet Count 268, Neutrophils (%) (Auto) 74.4H, Lymphocytes (%) (Auto) 13.6L, Monocytes (%) (Auto) 4.7, Eosinophils (%) (Auto) 5.4H, Basophils (%) (Auto) 0.7 , Neutrophils # (Auto) 6.3, Lymphocytes # (Auto) 1.3L, Monocytes # (Auto) 0.4, Eosinophils # (Auto) 0.5, Basophils # (Auto) 0.1, Large Unclassified Cells % 1.2 , Large Unclassified Cells # 0.1, Anion Gap 5L, Glomerular Filtration Rate 24.0L , Blood Urea Nitrogen 30H, Creatinine 2.70H, Sodium Level 133L, Potassium Level 5.5H, Chloride Level 102, Carbon Dioxide Level 26, Calcium Level 8.6L, Aspartate Amino Transf (AST/SGOT) 15, Alanine Aminotransferase (ALT/SGPT) 28, Alkaline Phosphatase 95, Total Bilirubin 0.7, Total Protein 6.4, Albumin 3.4, Magnesium Level 1.9, Albumin/Globulin Ratio 1.13 04/10/17 21:47: Total Creatine Kinase 52, Creatine Kinase MB 2.6, Creatine Kinase MB Relative Index 5.00H, Troponin I < 0.02 04/10/17 21:54: Bedside Glucose (Misc Panel) 208H 04/11/17 01:49: Anion Gap 6L, Glomerular Filtration Rate 26.4L, Blood Urea Nitrogen 31H, Creatinine 2.49H, Sodium Level 140#, Potassium Level 4.6, Chloride Level 107, Carbon Dioxide Level 27, Calcium Level 8.4L, Magnesium Level 1.9, Total Creatine Kinase 44, Creatine Kinase MB 2.1, Creatine Kinase MB Relative Index 4.77H, Troponin I < 0.02 04/11/17 04:39: White Blood Count 8.9, Red Blood Count 3.86L, Hemoglobin 12.1L, Hematocrit 34.6L , Mean Corpuscular Volume 89.6, Mean Corpuscular Hemoglobin 31.3, Mean Corpuscular Hemoglobin Concent 34.9, Red Cell Distribution Width 13.4, Platelet Count 280, Neutrophils (%) (Auto) 58.6, Lymphocytes (%) (Auto) 21.9L, Monocytes (%) (Auto) 5.5H, Eosinophils (%) (Auto) 11.3H, Basophils (%) (Auto) 0.9, Neutrophils # (Auto) 5.2, Lymphocytes # (Auto) 2.1, Monocytes # (Auto) 0.5, Eosinophils # (Auto) 1.0H, Basophils # (Auto) 0.1, Large Unclassified Cells % 1.9, Large Unclassified Cells # 0.2, Prothrombin Time 13.9, Prothromb Time International Ratio 1.06 04/11/17 06:37: Bedside Glucose (Misc Panel) 159H 04/11/17 12:03: Bedside Glucose (Misc Panel) 113H 04/11/17 12:57: CBC/BMP Laboratory Tests 04/10/17 18:08 Red Blood Count 3.88 L, Mean Corpuscular Volume 89.6, Mean Corpuscular Hemoglobin 31.4, Mean Corpuscular Hemoglobin Concent 35.1, Red Cell Distribution Width 13.3, Neutrophils (%) (Auto) 74.4 H, Lymphocytes (%) (Auto) 13.6 L, Monocytes (%) (Auto) 4.7, Eosinophils (%) (Auto) 5.4 H, Basophils (%) ( Auto) 0.7, Neutrophils # (Auto) 6.3, Lymphocytes # (Auto) 1.3 L, Monocytes # ( Auto) 0.4, Eosinophils # (Auto) 0.5, Basophils # (Auto) 0.1, Calcium Level 8.6 L , Aspartate Amino Transf (AST/SGOT) 15, Alanine Aminotransferase (ALT/SGPT) 28, Alkaline Phosphatase 95, Total Bilirubin 0.7, Total Protein 6.4, Albumin 3.4 04/11/17 01:49 Calcium Level 8.4 L, Total Creatine Kinase 44 04/11/17 04:39 Red Blood Count 3.86 L, Mean Corpuscular Volume 89.6, Mean Corpuscular Hemoglobin 31.3, Mean Corpuscular Hemoglobin Concent 34.9, Red Cell Distribution Width 13.4, Neutrophils (%) (Auto) 58.6, Lymphocytes (%) (Auto) 21.9 L, Monocytes (%) (Auto) 5.5 H, Eosinophils (%) (Auto) 11.3 H, Basophils (% ) (Auto) 0.9, Neutrophils # (Auto) 5.2, Lymphocytes # (Auto) 2.1, Monocytes # ( Auto) 0.5, Eosinophils # (Auto) 1.0 H, Basophils # (Auto) 0.1 SHANON BRINK MD Apr 11, 2017 13:16
--- NOTE | 2017-04-11 13:54 | REP ---
CAROTID ULTRASOUND: Real-time ultrasound evaluation and duplex Doppler interrogation of the extracranial carotid vasculature is performed. There is mild plaquing and narrowing in both carotid bulbs extending into the internal and external carotid arteries. Luminal narrowing is less than 50%. There is no evidence of hemodynamically significant stenosis of either internal carotid artery. Normal flow velocities are seen. The vertebral arteries demonstrate normal direction of flow. 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 No evidence of hemodynamically significant stenosis. Signed by Gumaro Warner MD 04/11/2017 01:45 P
[2017-04-11 15:10] VITALS: BP 141/65
[2017-04-11 20:00] VITALS: BP_SYST 118; BP_SYST 154; BP_SYST 155; BP_DIAS 64; BP_DIAS 69
[2017-04-12] VITALS (9 sets, daily range): BP systolic 132–161; BP diastolic 59–81
[2017-04-12 05:30] LABS: BASO # 0.1 K/mm3 (0.0-0.2); BASO % 0.8 % (0.0-1.0); EOS # 0.8 K/mm3 (0.0-0.50); EOS % 9.3 % (0.0-3.0); LARGE UNSTAINED CELL # 0.1 K/mm3 (0.0-0.4); LARGE UNSTAINED CELL % 1.2 % (0.0-4.0); LYMPH # 1.6 K/mm3 (1.5-4.5); LYMPH % 18.2 % (24.0-44.0); MEAN CORPUSCULAR HGB CONC 35.4 g/dl (32.0-36.5); MEAN CORPUSCULAR VOLUME 90.5 fl (80.0-96.0); MONO # 0.5 K/mm3 (0.0-0.8); NEUTROPHILS # 5.3 K/mm3 (1.8-7.7); NEUTROPHILS % 64.7 % (36.0-66.0); PLATELET COUNT, AUTOMATED 240 k/mm3 (150-450); RED CELL DISTRIBUTION WIDTH 13.4 % (11.5-14.5); WHITE BLOOD COUNT 8.2 K/mm3 (4.0-10.0)
[2017-04-12] MEDS: NS 1,000 ML IV SCH (05:38)
[2017-04-12 05:42] LABS: CREATININE FOR GFR 2.19 MG/DL (0.70-1.30); GLOMERULAR FILTRATION RATE 30.6 (>35); MAGNESIUM LEVEL 1.6 MG/DL (1.8-2.4)
[2017-04-12 05:56] LABS: INR 1.23
[2017-04-12] MEDS ORDERED: MAG SULF 1GM/100ML (MAG RUN) 1 GM in APPROPRIATE DILUENT 1 EA IV ONE (06:45)
[2017-04-12] MEDS: HumaLOG INSULIN (NovoLOG) PER UNIT SC SCH ×4 (08:19→20:30)
[2017-04-12] MEDS: TAMSULOSIN 0.4 MG CAP PO SCH (08:19)
[2017-04-12] MEDS: SIMVASTATIN 40 MG TAB PO SCH (08:19)
[2017-04-12] MEDS: OMEPRAZOLE 20 MG CAP PO SCH (08:19)
[2017-04-12] MEDS: APIXABAN 2.5 MG TAB (ELIQUIS) PO SCH ×2 (08:19→20:26)
[2017-04-12] MEDS: METOPROLOL TART 12.5 MG PER 1/2 TAB PO SCH ×2 (08:19→20:24)
[2017-04-12] MEDS: CETIRIZINE (ZyrTEC) 10 MG TAB PO SCH (08:20)
[2017-04-12] MEDS: DOXEPIN 10 MG CAP PO SCH (08:20)
[2017-04-12] MEDS: DONEPEZIL 5 MG TAB PO SCH (08:20)
[2017-04-12] MEDS: ASPIRIN 81 MG CHEW TABLET PO SCH (08:20)
--- NOTE | 2017-04-12 08:34 | IPNPDOC ---
Subjective Date Seen The patient was seen on 04/12/17. Subjective Chief Complaint/HPI The patient is a 86-year-old male admitted with a reason for visit of Near Syncope. General: Denies: ROS Unobtainable, Chills, Night Sweats, Fatigue, Malaise, Normal Appetite, Other Symptoms Constitutional: Denies: Chills, Fever, Malaise, Night Sweats, Weakness, Fatigue , Weight Loss, Lethargy, Other Eyes: Denies: Pain, Vision change, Conjunctivae inflammation, Eyelid inflammation, Redness, Other ENT: Denies: Head Aches, Ear Pain, Dysphagia, Sinus Congestion, Post Nasal Drip , Sore Throat, Epistaxis, Other Symptoms Skin: Denies: Rash, Lesions, Jaundice, Bruising, Itching, Dry, Breakdown, Nail Changes, Other Pulmonary: Denies: Dyspnea, Cough, Pleuritic Chest Pain, Other Symptoms Cardiovascular: Denies: Chest Pain, Palpitations, Orthopnea, Paroxysmal Noc. Dyspnea, Edema, Lt Headedness, Other Symptoms Gastrointestinal: Denies: Nausea, Vomiting, Abdominal Pain, Diarrhea, Constipation, Melena, Hematochezia, Other Symptoms Genitourinary: Denies: Dysuria, Frequency, Incontinence, Hematuria, Retention, Other Symptoms Objective Physical Examination General Exam: Positive: Alert, Cooperative, No Acute Distress Eye Exam: Positive: PERRLA, EOMI, Negative: Sclera icteric Chest Exam: Positive: Clear to auscultation, Normal air movement Heart Exam: Positive: Rate Normal, Bradycardic Telemetry: Positive: Bradycardia, Other Telemetry: (4 beats NSVT) Abdomen Exam: Positive: Normal bowel sounds, Soft, Negative: Tenderness Psych Exam: Positive: Oriented x 3 Assessment /Plan Problems (1) Near syncope Status: Acute Response to Treatment: Progressing Discussed With: Patient Problem Specific Plan: Monitor Clinically, Repeat Labs, Repeat Tests Problem Text: Appears may actually have been a syncopal episode. Multi-factorial, patient bradycardic with orthostatic hypotension. Betablocker dose halved. HCTZ on hold. Orthostasis improving, bradycardia improving. (2) Afib Status: Chronic Discussed With: Patient Problem Specific Plan: Monitor Clinically Problem Text: BB dose reduced secondary to bradycardia. Eliquis for anticoagulation. 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 (8) History of prostate cancer Status: Chronic Discussed With: Patient Problem Text: Status post RT. (9) CKD (chronic kidney disease), stage III Status: Chronic Plan/VTE VTE Prophylaxis Ordered?: Yes Plan IVF: Continue Therapy: PT, OT Diagnostics: Repeat Labs in AM VS, I&O, 24H, Fishbone Vital Signs/I&O Vital Signs Date Time Temp Pulse Resp B/P (MAP) Pulse Ox O2 Delivery O2 Flow Rate FiO2 04/12/17 08:19 80 132/59 04/12/17 08:00 97.2 18 98 Room Air I&O- Last 24 Hours up to 6 AM 04/12/17 06:00 Intake Total 2930 ml Output Total 1725 ml Balance 1205 ml Laboratory Data 24H LABS Laboratory Tests 2 04/11/17 12:03: Bedside Glucose (Misc Panel) 113H 04/11/17 12:57: Total Creatine Kinase 45, Creatine Kinase MB 2.0, Creatine Kinase MB Relative Index 4.44H, Troponin I < 0.02 04/11/17 16:36: Bedside Glucose (Misc Panel) 141H 04/11/17 20:31: Bedside Glucose (Misc Panel) 151H 04/12/17 05:10: White Blood Count 8.2, Red Blood Count 3.62L, Hemoglobin 11.6L, Hematocrit 32.8L , Mean Corpuscular Volume 90.5, Mean Corpuscular Hemoglobin 32.0, Mean Corpuscular Hemoglobin Concent 35.4, Red Cell Distribution Width 13.4, Platelet Count 240, Neutrophils (%) (Auto) 64.7, Lymphocytes (%) (Auto) 18.2L, Monocytes (%) (Auto) 6.0H, Eosinophils (%) (Auto) 9.3H, Basophils (%) (Auto) 0.8, Neutrophils # (Auto) 5.3, Lymphocytes # (Auto) 1.6, Monocytes # (Auto) 0.5, Eosinophils # (Auto) 0.8H, Basophils # (Auto) 0.1, Large Unclassified Cells % 1.2, Large Unclassified Cells # 0.1, Prothrombin Time 15.6H, Prothromb Time International Ratio 1.23, Anion Gap 6L, Glomerular Filtration Rate 30.6L, Blood Urea Nitrogen 22H, Creatinine 2.19H, Sodium Level 136, Potassium Level 4.0, Chloride Level 105, Carbon Dioxide Level 25, Calcium Level 8.0L, Magnesium Level 1.6L CBC/BMP Laboratory Tests 04/12/17 05:10 Red Blood Count 3.62 L, Mean Corpuscular Volume 90.5, Mean Corpuscular Hemoglobin 32.0, Mean Corpuscular Hemoglobin Concent 35.4, Red Cell Distribution Width 13.4, Neutrophils (%) (Auto) 64.7, Lymphocytes (%) (Auto) 18.2 L, Monocytes (%) (Auto) 6.0 H, Eosinophils (%) (Auto) 9.3 H, Basophils (%) (Auto) 0.8, Neutrophils # (Auto) 5.3, Lymphocytes # (Auto) 1.6, Monocytes # ( Auto) 0.5, Eosinophils # (Auto) 0.8 H, Basophils # (Auto) 0.1, Calcium Level 8.0 L SHANON BRINK MD Apr 12, 2017 08:34
[2017-04-12] MEDS ORDERED: SLF 3 ML SYR IV PRN (22:30)
[2017-04-13] VITALS: BP 160/72
[2017-04-13 04:00] VITALS: BP 128/67
[2017-04-13] MEDS ORDERED: SLF 3 ML SYR IV SCH (06:00)
[2017-04-13 06:07] LABS: BASO # 0.1 K/mm3 (0.0-0.2); EOS # 0.7 K/mm3 (0.0-0.50); EOS % 8.1 % (0.0-3.0); LARGE UNSTAINED CELL # 0.2 K/mm3 (0.0-0.4); LARGE UNSTAINED CELL % 1.7 % (0.0-4.0); LYMPH # 1.4 K/mm3 (1.5-4.5); LYMPH % 15.7 % (24.0-44.0); MEAN CORPUSCULAR HEMOGLOBIN 31.3 pg (27.0-33.0); MEAN CORPUSCULAR HGB CONC 34.5 g/dl (32.0-36.5); MEAN CORPUSCULAR VOLUME 90.8 fl (80.0-96.0); MONO # 0.6 K/mm3 (0.0-0.8); MONO % 6.8 % (0.0-5.0); NEUTROPHILS # 5.9 K/mm3 (1.8-7.7); NEUTROPHILS % 66.7 % (36.0-66.0); PLATELET COUNT, AUTOMATED 263 k/mm3 (150-450); RED CELL DISTRIBUTION WIDTH 13.1 % (11.5-14.5); WHITE BLOOD COUNT 8.9 K/mm3 (4.0-10.0)
[2017-04-13 06:10] LABS: INR 1.14
[2017-04-13 06:20] LABS: CALCIUM LEVEL 8.7 MG/DL (8.8-10.2); CREATININE FOR GFR 2.18 MG/DL (0.70-1.30); GLOMERULAR FILTRATION RATE 30.8 (>35); MAGNESIUM LEVEL 1.9 MG/DL (1.8-2.4); POTASSIUM SERUM 4.5 MEQ/L (3.5-5.1)
[2017-04-13] MEDS ORDERED: METO12TA PO (07:57)
[2017-04-13] MEDS ORDERED: NORV5TAB PO (07:57)
[2017-04-13 08:00] VITALS: BP 144/74
[2017-04-13] MEDS ORDERED: amLODIPine 5 MG TAB PO ONE (08:00)
[2017-04-13] MEDS: HumaLOG INSULIN (NovoLOG) PER UNIT SC SCH (08:28)
[2017-04-13] MEDS: TAMSULOSIN 0.4 MG CAP PO SCH (10:08)
[2017-04-13] MEDS: OMEPRAZOLE 20 MG CAP PO SCH (10:08)
[2017-04-13] MEDS: SIMVASTATIN 40 MG TAB PO SCH (10:09)
[2017-04-13] MEDS: ASPIRIN 81 MG CHEW TABLET PO SCH (10:09)
[2017-04-13] MEDS: CETIRIZINE (ZyrTEC) 10 MG TAB PO SCH (10:09)
[2017-04-13] MEDS: DONEPEZIL 5 MG TAB PO SCH (10:10)
[2017-04-13] MEDS: DOXEPIN 10 MG CAP PO SCH (10:11)
[2017-04-13] MEDS: APIXABAN 2.5 MG TAB (ELIQUIS) PO SCH (10:11)
[2017-04-13 10:12] VITALS: BP 144/74
[2017-04-13] MEDS: METOPROLOL TART 12.5 MG PER 1/2 TAB PO SCH (10:12)
--- NOTE | 2017-04-13 11:30 | DS.PDOC ---
Discharge Summary General Date of Admission Apr 10, 2017 at 17:19 Date of Discharge Apr 13, 2017 Primary Care Physician: Cholo Alvarez Discharge Summary PROCEDURES PERFORMED DURING STAY: [None]. ADMITTING DIAGNOSES: 1. Syncope DISCHARGE DIAGNOSES: 1. Orthostatic hypotension 2. Symptomatic Bradycardia 3. Afib 4. HTN 5. DM 6. hyperlipidemia 7. GERD 8. RCC s/p recent left nephrectomy 9. Prostate CA s/p RT 10. CKD COMPLICATIONS/CHIEF COMPLAINT: Near Syncope. HOSPITAL COURSE: This is an 86-year old male with a past medical history as indicated who presented for a syncopal episode. On further evaluation he was found to be orthostatic and bradycardic. His BB dose cut in half, and his thiazide discontinued. His orthostasis and bradycardia resolved. He was seen and cleared by PT, with recommendations to continue outpatient PT. His hospital stay was otherwise unremarkable. DISCHARGE MEDICATIONS: Please see below. ALLERGIES: Please see below. PHYSICAL EXAMINATION ON DISCHARGE: VITAL SIGNS: Please see below. GENERAL: NAD HEENT: NC/AT, EOMI, PERRL NECK: supple CARDIOVASCULAR EXAMINATION: +S1S2, RRR RESPIRATORY EXAMINATION: CTA B/L ABDOMINAL EXAMINATION: soft, NT, +BS EXTREMITIES: no edema PSYCHIATRIC EXAMINATION: AAOx3 LABORATORY DATA: Please see below. IMAGING: PROGNOSIS: ACTIVITY: [As tolerated]. DIET: 2 gram sodium, carb consistent DISPOSITION: Discharge home with outpatient PT. DISCHARGE INSTRUCTIONS: 1. Follow PCP in 3-5 days 2. Follow up with cardiology Dr. Ricardo as scheduled in one week. ITEMS TO FOLLOWUP ON ON OUTPATIENT: 1. Heart rate and blood pressures (orthostatic). DISCHARGE CONDITION: [Stable]. TIME SPENT ON DISCHARGE: Greater than 30 minutes. Vital Signs/I&Os Vital Signs Date Time Temp Pulse Resp B/P (MAP) Pulse Ox O2 Delivery O2 Flow Rate FiO2 04/13/17 10:12 72 144/74 04/13/17 08:00 97.1 18 98 Room Air I&O- Last 24 Hours up to 6 AM 04/13/17 06:00 Intake Total 2090 ml Output Total 625 ml Balance 1465 ml Laboratory Data Labs 24H Laboratory Tests 2 04/12/17 11:50: Bedside Glucose (Misc Panel) 143H 04/12/17 16:55: Bedside Glucose (Misc Panel) 141H 04/12/17 20:30: Bedside Glucose (Misc Panel) 157H 04/13/17 05:23: White Blood Count 8.9, Red Blood Count 3.87L, Hemoglobin 12.1L, Hematocrit 35.2L , Mean Corpuscular Volume 90.8, Mean Corpuscular Hemoglobin 31.3, Mean Corpuscular Hemoglobin Concent 34.5, Red Cell Distribution Width 13.1, Platelet Count 263, Neutrophils (%) (Auto) 66.7H, Lymphocytes (%) (Auto) 15.7L, Monocytes (%) (Auto) 6.8H, Eosinophils (%) (Auto) 8.1H, Basophils (%) (Auto) 1.0 , Neutrophils # (Auto) 5.9, Lymphocytes # (Auto) 1.4L, Monocytes # (Auto) 0.6, Eosinophils # (Auto) 0.7H, Basophils # (Auto) 0.1, Large Unclassified Cells % 1.7, Large Unclassified Cells # 0.2, Prothrombin Time 14.7H, Prothromb Time International Ratio 1.14, Anion Gap 5L, Glomerular Filtration Rate 30.8L, Blood Urea Nitrogen 21H, Creatinine 2.18H, Sodium Level 141, Potassium Level 4.5, Chloride Level 109H, Carbon Dioxide Level 27, Calcium Level 8.7L, Magnesium Level 1.9 CBC/BMP Laboratory Tests 04/13/17 05:23 Red Blood Count 3.87 L, Mean Corpuscular Volume 90.8, Mean Corpuscular Hemoglobin 31.3, Mean Corpuscular Hemoglobin Concent 34.5, Red Cell Distribution Width 13.1, Neutrophils (%) (Auto) 66.7 H, Lymphocytes (%) (Auto) 15.7 L, Monocytes (%) (Auto) 6.8 H, Eosinophils (%) (Auto) 8.1 H, Basophils (%) (Auto) 1.0, Neutrophils # (Auto) 5.9, Lymphocytes # (Auto) 1.4 L, Monocytes # ( Auto) 0.6, Eosinophils # (Auto) 0.7 H, Basophils # (Auto) 0.1, Calcium Level 8.7 L FSBS Laboratory Tests Test 04/12/17 11:50 04/12/17 16:55 04/12/17 20:30 Range/Units Bedside Glucose (Misc Panel) 143 141 157 83-110 MG/DL Discharge Medications Scheduled (Aquaphor) 1 Oin Oin, 1 OIN EXT BID, (Reported) USES ON BACK, LEGS AND ARMS Amlodipine Besylate (Norvasc) 5 Mg Tab, 5 MG PO DAILY Apixaban Base (Eliquis) 2.5 Mg Tab, 2.5 MG PO BID, (Reported) Aspirin (Aspirin EC) 81 Mg Tabec, 81 MG PO DAILY, (Reported) Cetirizine HCl (Cetirizine HCl) 10 Mg Tab, 10 MG PO QHS, (Reported) Donepezil Hydrochloride (Aricept) 10 Mg Tab, 10 MG PO DAILY, (Reported) Doxepin HCl (Doxepin HCl) 10 Mg Cap, 10 MG PO QHS, (Reported) Fluticasone Propionate (Fluticasone Propionate 0.005%) 0.005 % Oin, 1 DOSE EXT 2XW, (Reported) USES ON BACK, ARMS, AND LEGS Glipizide (Glipizide) 5 Mg Tab, 5 MG PO DAILY, (Reported) TAKES AT LUNCHTIME Metoprolol Tartrate (Metoprolol Tartrate) 25 Mg Tab, 12.5 MG PO BID Omeprazole (Omeprazole) 40 Mg Cap, 40 MG PO QPM, (Reported) TAKES AT DINNERTIME Potassium Chloride (Klor-Con M20) 20 Meq Tabcr, 20 MEQ PO QHS, (Reported) Simvastatin - High Dose (Simvastatin) 40 Mg Tab, 40 MG PO DAILY, (Reported) Sitagliptin Phosphate (Januvia) 100 Mg Tab, 50 MG PO DAILY, (Reported) TAKES AT LUNCHTIME Tamsulosin Hydrochloride (Flomax) 0.4 Mg Cap, 0.4 MG PO DAILY, (Reported) Scheduled PRN Ipratropium [place] (Ipratropium [place]) 165 [place]/15 Ml Naspr, 1 SPRAY NA Q6H PRN for RUNNY NOSE, (Reported) Allergies Coded Allergies: Aminoglycosides (Unverified Allergy, Mild, RASH, 02/20/17) Bacitracin (Unverified Allergy, Mild, RASH, 01/29/13) Neomycin (Unverified Allergy, Mild, RASH, 01/29/13) Polymyxin B (Unverified Allergy, Mild, RASH, 01/29/13) MASON Inhibitors (Unverified Allergy, Unknown, UNKNOWN, 01/29/13) Angiotensin Receptor Blockers (Verified Allergy, Unknown, 01/29/13) Lisinopril (Verified Allergy, Unknown, 01/29/13) SHANON BRINK MD Apr 13, 2017 11:30
== END 2017-04-13 12:10 | disposition home or self-care (01) | DRG 312 ==
LOC: M ICU 17:19 → M PCU 04-11 15:00
PROVIDERS: ADMIT Hospitalist; ATTEND Internal Medicine
DX: I95.1 Orthostatic hypotension (principal); N18.4 Chronic kidney disease, stage 4 (severe); I12.9 Hypertensive chronic kidney disease with stage 1 through stage 4 chronic kidney disease, or unspecified chronic kidney disease; E11.9 Type 2 diabetes mellitus without complications; E78.5 Hyperlipidemia, unspecified; R00.1 Bradycardia, unspecified; I48.2 Chronic atrial fibrillation; K21.9 Gastro-esophageal reflux disease without esophagitis; E87.5 Hyperkalemia; Z66 Do not resuscitate; Z79.82 Long term (current) use of aspirin; Z90.5 Acquired absence of kidney; Z85.46 Personal history of malignant neoplasm of prostate; Z85.528 Personal history of other malignant neoplasm of kidney; Z79.899 Other long term (current) drug therapy; Z88.1 Allergy status to other antibiotic agents; Z88.8 Allergy status to other drugs, medicaments and biological substances

== ENCOUNTER → 2017-04-10 | Outpatient (REF) | payer MEDICARE, OTHER ==
[~2017-04-10] MED LIST changes: +AQUAOIN2 EXT; +ASPI81CH PO; +ASPI81TAEC PO; +DONEPEZIL; +DOXE10CA PO; +FLUT0.003 EXT; +GLIP2.5T2; +GLIP5TAB8 PO; +IPRA6SP; +METO12TA PO; +NORV5TAB PO; +OMEP40CA2 PO; +POTA20TA PO
[2017-04-10 17:08] LABS: MEAN CORPUSCULAR HEMOGLOBIN 31.3 pg (27.0-33.0); MEAN CORPUSCULAR HGB CONC 33.9 g/dl (32.0-36.5); MEAN CORPUSCULAR VOLUME 92.3 fl (80.0-96.0); RED CELL DISTRIBUTION WIDTH 13.1 % (11.5-14.5); WHITE BLOOD COUNT 9.2 K/mm3 (4.0-10.0)
[2017-04-10 18:08] LABS: CALCIUM LEVEL 8.8 MG/DL (8.8-10.2); CREATININE FOR GFR 2.89 MG/DL (0.70-1.30); GLOMERULAR FILTRATION RATE 22.2 (>35)
[2017-04-10 18:10] LABS: POTASSIUM SERUM 5.5 MEQ/L (3.5-5.1)
== END ==
LOC: M SFHCCLAY 10:05
PROVIDERS: ATTEND Internal Medicine
DX: C64.2 Malignant neoplasm of left kidney, except renal pelvis (principal); N18.3 Chronic kidney disease, stage 3 (moderate)

== ENCOUNTER → 2017-11-08 | Outpatient (CLI) | payer MEDICARE, OTHER | LOC: M RAD 10:51 | DX: C64.2 Malignant neoplasm of left kidney, except renal pelvis (principal); N28.1 Cyst of kidney, acquired; K57.32 Diverticulitis of large intestine without perforation or abscess without bleeding; Z85.46 Personal history of malignant neoplasm of prostate | CPT/HCPCS: 74176 ==

== ENCOUNTER → 2017-11-17 | Outpatient (REF) | payer MEDICARE, OTHER ==
[2017-11-17 14:43] LABS: CHOLESTEROL LEVEL 122 MG/DL (<200); CHOLESTEROL RISK RATIO 2.346 (<5); HDL CHOLESTEROL 52 MG/DL (>40); LDL CHOLESTEROL 43.6 MG/DL (<100); NON-HDL-C 70 MG/DL; TRIGLYCERIDES LEVEL 132 MG/DL (<150)
[2017-11-17 15:41] LABS: ESTIMATED AVERAGE GLUCOSE 154 MG/DL (60-110)
== END ==
LOC: M SFHCPLAZ 11:18
DX: E11.9 Type 2 diabetes mellitus without complications (principal)
CPT/HCPCS: 83036

== ENCOUNTER → 2018-05-07 | Outpatient (REF) | payer MEDICARE, OTHER ==
[2018-05-07 17:18] LABS: ESTIMATED AVERAGE GLUCOSE 146 MG/DL (60-110); HEMOGLOBIN A1c 6.7 %
== END ==
LOC: M SFHCCLAY 13:32
DX: E11.9 Type 2 diabetes mellitus without complications (principal)
CPT/HCPCS: 83036

== ENCOUNTER → 2018-05-16 | Outpatient (CLI) | payer MEDICARE, OTHER | LOC: M RAD 10:44 | DX: Z85.528 Personal history of other malignant neoplasm of kidney (principal); N28.1 Cyst of kidney, acquired; Z85.46 Personal history of malignant neoplasm of prostate; K86.89 Other specified diseases of pancreas; Z90.5 Acquired absence of kidney; R22.2 Localized swelling, mass and lump, trunk | CPT/HCPCS: 74150 ==

== ENCOUNTER → 2018-07-23 | Outpatient (CLI) | payer MEDICARE, OTHER | LOC: M CLY 13:18 | DX: Z01.818 Encounter for other preprocedural examination (principal); D49.4 Neoplasm of unspecified behavior of bladder; N39.0 Urinary tract infection, site not specified | CPT/HCPCS: 80048 ==

== ENCOUNTER → 2018-07-23 | Outpatient (REF) | payer MEDICARE, OTHER ==
[2018-07-23 18:39] LABS: HEMATOCRIT 39.7 % (42.0-52.0); HEMOGLOBIN 13.4 g/dl (13.5-17.5); MEAN CORPUSCULAR HEMOGLOBIN 32.1 pg (27.0-33.0); MEAN CORPUSCULAR HGB CONC 33.8 g/dl (32.0-36.5); PLATELET COUNT, AUTOMATED 203 10^3/uL (150-450); RED BLOOD COUNT 4.18 10^6/uL (4.30-6.10); RED CELL DISTRIBUTION WIDTH 12.7 % (11.5-14.5); WHITE BLOOD COUNT 7.1 10^3/uL (4.0-10.0)
[2018-07-23 18:46] LABS: INR 1.14; PROTHROMBIN TIME 14.8 SECONDS (12.1-14.4)
[2018-07-23 18:52] LABS: ANION GAP 7 MEQ/L (8-16); BLOOD UREA NITROGEN 22 MG/DL (7-18); CALCIUM LEVEL 8.4 MG/DL (8.8-10.2); CARBON DIOXIDE LEVEL 25 MEQ/L (21-32); CHLORIDE LEVEL 109 MEQ/L (98-107); CREATININE FOR GFR 2.24 MG/DL (0.70-1.30); GLOMERULAR FILTRATION RATE 29.7 (>35); GLUCOSE, FASTING 217 MG/DL (70-100); SODIUM LEVEL 141 MEQ/L (136-145)
== END ==
LOC: M LABSMT 13:12
DX: Z01.818 Encounter for other preprocedural examination (principal); D49.4 Neoplasm of unspecified behavior of bladder; N39.0 Urinary tract infection, site not specified

== ENCOUNTER 2018-08-10 10:42 | Day surgery (SDC) | payer MEDICARE, OTHER ==
[~2018-08-10 10:42] MED LIST changes: -/ESOM40CA; -/GLYB5TA; -ACET-654 PO; -ACET30TAB PO; -ACET65TA; -ARIC10TA PO; -ASPI81TA83; -ASPI81TA85 PO; -CETI10TA PO; -CITA20TA4 PO; -CLARINEX; -CVS20TAB PO; -DIAB5TAB; -DONE5TAB17 PO; -DONEPEZIL; -DOXE10CA PO; -ELIQ2.5T PO; -FLOM5CAP PO; -GLIP2.5T2; -GLIP2.5T2 PO; -GLUC500T; -GLYB2.5T6; +GLYCOPYRROLATE INJ 0.2 MG/ML 2 ML VIAL As Ordered; -HYDR12.55 PO; -HYDR25TA6; -HYDR25TAB PO; -IMOD2TAB16 PO; -JANU100T PO; -K-TA1TAB PO; +LIDOCAINE 2% INJ 100 MG/5 ML SDV (FOR ANES.) As Ordered; -METO25TAB PO; +MIDAZOLAM INJ 2 MG/2 ML VIAL (J2250) As Ordered; +NEOSTIGMINE 10 MG/10 ML VIAL (J2710) As Ordered; -NITR4TASL SL; -OMEP20CA3 PO; +ONDANSETRON 4MG/2ML VIAL (J2405) As Ordered; -OSEL75CA PO; -OSEL75CA2 PO; -OXYC1TAB23 PO; -POTA20TA PO; -POTA20TA2; -PRED10TA2; -PROA1AER INH; +PROPOFOL 200 MG/20 ML VIAL As Ordered; +ROCURONIUM BROMIDE 50 MG/5 ML VIAL As Ordered; -SIMV20TA2; -SIMV40TA2 PO; -VITA500C; +dexameTHASONE 4 MG/ML 1ML VIAL (J1100) As Ordered; +fentaNYL 100 MCG/2 ML INJECTION (J3010) As Ordered
[2018-08-10 11:59] LABS: BEDSIDE GLUCOSE 152 MG/DL (83-110)
[2018-08-10] MEDS: LR 1,000 ML IV ×2 (12:04)
[2018-08-10] MEDS: CONRAY-60 60% 50ML VIAL (Q9961) As Ordered ×2 (12:54)
== END 2018-08-10 15:57 | disposition home or self-care (01) ==
LOC: M SDC 10:42
DX: C67.9 Malignant neoplasm of bladder, unspecified (principal); I10 Essential (primary) hypertension; E78.00 Pure hypercholesterolemia, unspecified; E11.9 Type 2 diabetes mellitus without complications; K21.9 Gastro-esophageal reflux disease without esophagitis; M12.9 Arthropathy, unspecified; L30.9 Dermatitis, unspecified; F03.90 Unspecified dementia, unspecified severity, without behavioral disturbance, psychotic disturbance, mood disturbance, and anxiety; G47.30 Sleep apnea, unspecified; R29.898 Other symptoms and signs involving the musculoskeletal system; Z88.1 Allergy status to other antibiotic agents; Z88.8 Allergy status to other drugs, medicaments and biological substances; Z79.899 Other long term (current) drug therapy; Z79.01 Long term (current) use of anticoagulants; Z87.440 Personal history of urinary (tract) infections; Z92.21 Personal history of antineoplastic chemotherapy; Z85.828 Personal history of other malignant neoplasm of skin; Z85.46 Personal history of malignant neoplasm of prostate; Z85.528 Personal history of other malignant neoplasm of kidney; Z96.1 Presence of intraocular lens; Z72.0 Tobacco use
CPT/HCPCS: 52240

== ENCOUNTER → 2018-09-30 | Outpatient (CLI) | payer MEDICARE, OTHER | LOC: M WUC 10:22 | DX: S60.222A Contusion of left hand, initial encounter (principal); S60.212A Contusion of left wrist, initial encounter; X58.XXXA Exposure to other specified factors, initial encounter; M61.442 Other calcification of muscle, left hand; Y92.9 Unspecified place or not applicable; Y93.9 Activity, unspecified; Y99.9 Unspecified external cause status; M19.042 Primary osteoarthritis, left hand; M19.032 Primary osteoarthritis, left wrist | CPT/HCPCS: 73110 ==

== ENCOUNTER → 2018-11-16 | Outpatient (REF) | payer MEDICARE, OTHER ==
[~2018-11-16] MED LIST changes: +/ESOM40CA; +/GLYB5TA; +ACET1TAB55 PO; +ACET30TAB PO; +ACET65TA; +AQUAOIN2 EXT; +ARIC1TAB2 PO; +ASPI81CH PO; +ASPI81TA83; +ASPI81TA85 PO; +ASPI81TAEC PO; +AZEL1SPR3; +CETI10TA PO; +CITA20TA4 PO; +CLARINEX; +CVS20TAB PO; +DIAB5TAB; +DONE5TAB64 PO; +DONEPEZIL; +DOXE10CA PO; +ELIQ2.5T PO; +FLOM0.4C39 PO; +FLUT0.003 EXT; +GLIP2.5T2; +GLIP2.5T2 PO; +GLIP5TAB8 PO; +GLUC500T; +GLYB2.5T6; -GLYCOPYRROLATE INJ 0.2 MG/ML 2 ML VIAL As Ordered; +HYDR12.55 PO; +HYDR25TA6; +HYDR25TAB PO; +IMOD2TAB16 PO; +IPRA6SP; +JANU100T PO; +K-TA1TAB PO; +KLOR20TA42 PO; -LIDOCAINE 2% INJ 100 MG/5 ML SDV (FOR ANES.) As Ordered; +METO1TAB87 PO; +METO25TA4 PO; -MIDAZOLAM INJ 2 MG/2 ML VIAL (J2250) As Ordered; -NEOSTIGMINE 10 MG/10 ML VIAL (J2710) As Ordered; +NEXI1CAP4 PO; +NITR4TASL SL; +NORV5TAB PO; +OMEP20CA3 PO; +OMEP40CA2 PO; -ONDANSETRON 4MG/2ML VIAL (J2405) As Ordered; +OSEL75CA PO; +OSEL75CA2 PO; +OXYC1TAB23 PO; +POTA20TA2; +PRED10TA2; +PROAAER10 INH; -PROPOFOL 200 MG/20 ML VIAL As Ordered; -ROCURONIUM BROMIDE 50 MG/5 ML VIAL As Ordered; +SIMV20TA2; +SIMV40TA2 PO; +TEKT150T PO; +VITA500C; -dexameTHASONE 4 MG/ML 1ML VIAL (J1100) As Ordered; -fentaNYL 100 MCG/2 ML INJECTION (J3010) As Ordered
[2018-11-16 14:05] LABS: CHOLESTEROL RISK RATIO 2.465 (<5)
[2018-11-16 15:50] LABS: HEMOGLOBIN A1c 7.5 %
== END ==
LOC: M SFHCPLAZ 11:49
PROVIDERS: ATTEND Internal Medicine
DX: E11.9 Type 2 diabetes mellitus without complications (principal); E78.00 Pure hypercholesterolemia, unspecified
CPT/HCPCS: 36415; 80061; 83036; G0463

== ENCOUNTER → 2018-11-19 | Outpatient (REF) | payer MEDICARE, OTHER | LOC: M SMT 17:55 | PROVIDERS: ATTEND Urology | DX: C67.9 Malignant neoplasm of bladder, unspecified (principal) ==

== ENCOUNTER 2018-12-17 10:06 | Emergency (ER) | payer MEDICARE, OTHER ==
[~2018-12-17] VITALS: Ht 180.3 cm; Wt 77.3 kg
--- NOTE | 2018-12-17 11:49 | REP ---
LEFT KNEE, FOUR VIEWS: HISTORY: Injury. There is a nondisplaced fracture of the patella. There is no dislocation. The knee joint space is normal in appearance. A suprapatellar joint effusion is present. IMPRESSION: Nondisplaced fracture of the patella. Electronically Signed by Jean Marie Vang MD 12/17/2018 12:11 P
[2018-12-17 12:00] VITALS: BP 147/67
== END 2018-12-17 12:01 | disposition home or self-care (01) ==
LOC: M ED 10:06
DX: S82.002A Unspecified fracture of left patella, initial encounter for closed fracture (principal); W00.0XXA Fall on same level due to ice and snow, initial encounter; Y92.098 Other place in other non-institutional residence as the place of occurrence of the external cause; I10 Essential (primary) hypertension; E11.9 Type 2 diabetes mellitus without complications; G47.33 Obstructive sleep apnea (adult) (pediatric); K21.9 Gastro-esophageal reflux disease without esophagitis; Z86.73 Personal history of transient ischemic attack (TIA), and cerebral infarction without residual deficits; Z85.528 Personal history of other malignant neoplasm of kidney; Z85.46 Personal history of malignant neoplasm of prostate; Z90.5 Acquired absence of kidney; Z88.1 Allergy status to other antibiotic agents; Z88.8 Allergy status to other drugs, medicaments and biological substances; Z79.899 Other long term (current) drug therapy; Z79.01 Long term (current) use of anticoagulants

== ENCOUNTER → 2019-03-04 | Outpatient (CLI) | payer MEDICARE, OTHER ==
[~2019-03-04] MED LIST changes: -/ESOM40CA; -/GLYB5TA; +ACET-716 PO; -ACET30TAB PO; -ASPI81CH PO; +ASPI81CH49 PO; -CITA20TA4 PO; +CITA20TA6 PO; -CVS20TAB PO; +GLYB1TAB29; +NEXI1CAP3; +OMEP20TA9 PO
--- NOTE | 2019-03-04 11:47 | REP ---
Chest x-ray: Two views. History: Bladder cancer. Comparison study: July 23, 2018. Findings: The lungs are symmetrically aerated and clear. Pleural angles are sharp. Heart size is normal. Pulmonary vasculature is not increased. There are some degenerative changes in the thoracic spine and in the thoracic aorta. Impression: No active disease. Electronically Signed by Juve Dotson MD 03/04/2019 11:38 A
== END ==
LOC: M CLY 09:51
PROVIDERS: ATTEND Urology
DX: Z01.818 Encounter for other preprocedural examination (principal); C67.9 Malignant neoplasm of bladder, unspecified; N39.0 Urinary tract infection, site not specified

== ENCOUNTER → 2019-03-04 | Outpatient (REF) | payer MEDICARE, OTHER ==
[2019-03-04 18:29] LABS: HEMATOCRIT 39.6 % (42.0-52.0); HEMOGLOBIN 13.4 g/dl (13.5-17.5); MEAN CORPUSCULAR HEMOGLOBIN 31.5 pg (27.0-33.0); MEAN CORPUSCULAR HGB CONC 33.8 g/dl (32.0-36.5); PLATELET COUNT, AUTOMATED 217 10^3/uL (150-450); RED BLOOD COUNT 4.26 10^6/uL (4.30-6.10); WHITE BLOOD COUNT 8.8 10^3/uL (4.0-10.0)
[2019-03-04 19:19] LABS: CALCIUM LEVEL 8.6 MG/DL (8.8-10.2); CREATININE FOR GFR 2.2 MG/DL (0.70-1.30); GLOMERULAR FILTRATION RATE 30.3 (>35); POTASSIUM SERUM 4.1 MEQ/L (3.5-5.1)
== END ==
LOC: M LABSMT 09:32
PROVIDERS: ATTEND Urology
DX: Z01.818 Encounter for other preprocedural examination (principal); C67.9 Malignant neoplasm of bladder, unspecified; N39.0 Urinary tract infection, site not specified

== ENCOUNTER 2019-03-15 08:27 | Day surgery (SDC) | payer MEDICARE, OTHER ==
[~2019-03-15] VITALS: Ht 172.7 cm; Wt 80.7 kg
[~2019-03-15 08:27] MED LIST changes: +LR 1,000 ML IV ONE; +mitoMYcin 40MG VIAL (J9280 PER 5MG) INTRAVESIC ONE
[2019-03-15] MEDS ORDERED: fentaNYL 100 MCG/2 ML INJECTION (J3010) IV PRN (13:00)
[2019-03-15] MEDS ORDERED: PERCOCET 5MG/325MG TAB PO PRN (13:00)
[2019-03-15] MEDS ORDERED: LR 1,000 ML IV SCH (13:00)
[2019-03-15] MEDS ORDERED: ACETAMINOPHEN TAB 650MG DOSE (2X325MG) PO PRN (13:00)
[2019-03-15] MEDS ORDERED: ONDANSETRON 4MG/2ML VIAL (J2405) IV PRN (13:00)
--- NOTE | 2019-03-15 13:06 | RO ---
DATE OF PROCEDURE: 03/15/2019 PREPROCEDURE DIAGNOSIS: Bladder cancer. POSTPROCEDURE DIAGNOSIS: Bladder cancer. PROCEDURE: Cystoscopy, transurethral resection of bladder tumor (greater than 5 cm), fulguration of bladder tumors, intravesical mitomycin C installation. SURGEON: Dr. Monroe Guevara OIL PROGRAM COMPLIANCE SPECIALIST: None. ANESTHESIA: General. OPERATIVE INDICATIONS: This is an 88-year-old male with history of low grade bladder cancer who on recent office cystoscopy was found to have several small papillary tumors along his anterior wall. He was brought to the operating room today for the above listed procedures. DESCRIPTION OF PROCEDURE: The patient was brought to the operating room where general anesthesia was induced. Prophylactic antibiotics were infused. He was then placed in dorsal lithotomy position and prepped and draped in the usual sterile fashion. At this point, a resectoscope was inserted into the urethral meatus using the visual obturator. The bladder was then thoroughly examined and the only abnormalities seen were several small papular tumors along the anterior wall. These probably numbered close to 20 to 30 small tumors. The larger of these tumors were resected. The remainder of the tumors were fulgurated using the coagulation current. Once certain all the tumors had been resected and fulgurated, I checked for hemostasis and hemostasis appeared to be excellent. All the tumors were removed using the Cindi evacuator. At this point, the resectoscope was removed and an 18 Urdu 3-way catheter was inserted into the bladder and the balloon was filled with 30 mL of sterile water. After all the fluid drained out of the bladder, then hooked up irrigation to the irrigation port and clamped it. Through the outflow port, 40 mg of mitomycin C was instilled using sterile water into the bladder and the port was plugged. The patient was then taken out of the dorsal lithotomy position, awakened from anesthesia and transported to the recovery room in stable condition. Estimated blood loss: 5 mL. Complications: None. Specimen: Bladder tumors. Plan: The patient will retain the mitomycin C in the recovery room for one hour while having him roll from side to side every 15 minutes. Will then let all the mitomycin C drain out and he will go home with the catheter. He will followup in the clinic next week for catheter removal and to discuss pathology results. ALBERTO
[2019-03-15 16:00] VITALS: BP 177/86
== END 2019-03-15 16:18 | disposition home or self-care (01) ==
LOC: M SDC 08:27
PROVIDERS: ATTEND Urology
DX: C67.3 Malignant neoplasm of anterior wall of bladder (principal); I48.91 Unspecified atrial fibrillation; I10 Essential (primary) hypertension; E03.9 Hypothyroidism, unspecified; E78.5 Hyperlipidemia, unspecified; G47.30 Sleep apnea, unspecified; F03.90 Unspecified dementia, unspecified severity, without behavioral disturbance, psychotic disturbance, mood disturbance, and anxiety; F17.210 Nicotine dependence, cigarettes, uncomplicated; K21.9 Gastro-esophageal reflux disease without esophagitis; Z88.8 Allergy status to other drugs, medicaments and biological substances; Z86.73 Personal history of transient ischemic attack (TIA), and cerebral infarction without residual deficits; Z79.899 Other long term (current) drug therapy; Z79.01 Long term (current) use of anticoagulants; Z92.21 Personal history of antineoplastic chemotherapy; Z85.46 Personal history of malignant neoplasm of prostate
CPT/HCPCS: 51720; 52240; 88307; J0690; J9280

== ENCOUNTER 2019-03-23 09:10 | Emergency (ER) | payer MEDICARE, OTHER ==
[~2019-03-23] VITALS: Ht 180.3 cm; Wt 78.7 kg
[~2019-03-23 09:10] MED LIST changes: -LR 1,000 ML IV ONE; -mitoMYcin 40MG VIAL (J9280 PER 5MG) INTRAVESIC ONE
[2019-03-23 09:11] VITALS: BP 136/93
[2019-03-23] MEDS ORDERED: KETO2CR TOP (10:25)
[2019-03-23] MEDS ORDERED: CEFD300CAP PO (10:25)
[2019-03-23] MEDS ORDERED: CEFDINIR 300 MG CAP (OMNICEF) PO ONE (10:45)
== END 2019-03-23 10:47 | disposition home or self-care (01) ==
LOC: M ED 09:10
DX: N48.1 Balanitis (principal); N39.0 Urinary tract infection, site not specified; Z98.890 Other specified postprocedural states; I48.91 Unspecified atrial fibrillation; I10 Essential (primary) hypertension; E11.9 Type 2 diabetes mellitus without complications; M54.9 Dorsalgia, unspecified; Z90.5 Acquired absence of kidney; Z87.891 Personal history of nicotine dependence; Z85.46 Personal history of malignant neoplasm of prostate; C67.9 Malignant neoplasm of bladder, unspecified; Z88.8 Allergy status to other drugs, medicaments and biological substances; Z88.1 Allergy status to other antibiotic agents; Z79.899 Other long term (current) drug therapy; Z79.01 Long term (current) use of anticoagulants

== ENCOUNTER → 2019-03-27 | Outpatient (REF) | payer MEDICARE, OTHER ==
[~2019-03-27] MED LIST changes: +CEFD300CAP PO; +KETO2CR TOP
== END ==
LOC: M SFHCPLAZ 11:09
PROVIDERS: ATTEND Physician Assistant Medical
DX: G62.9 Polyneuropathy, unspecified (principal)
CPT/HCPCS: 36415; 82607; G0463

== ENCOUNTER → 2019-04-30 | Outpatient (CLI) | payer MEDICARE, OTHER ==
[~2019-04-30] MED LIST changes: +OMEP1CAP73 PO; -OMEP20CA3 PO; -OMEP40CA2 PO; +OMEP40CA97 PO; -SIMV40TA2 PO; +SIMV40TA20 PO
--- NOTE | 2019-04-30 10:51 | REP ---
Clinical: History of carcinoma. Comparison: 03/04/2019 . Technique: PA and lateral. Findings: The mediastinum and cardiac silhouette are normal. The lung coronado are clear and without acute consolidation, effusion, or pneumothorax. The skeletal structures are intact and normal. Impression: 1. No acute cardiopulmonary process. Electronically Signed by Jacoby Child MD 04/30/2019 10:44 A
--- NOTE | 2019-04-30 11:17 | REP ---
Clinical: Left renal carcinoma. Technique: Axial noncontrast images from the lung bases to the pubic symphysis with coronal and sagittal re-formations. Comparison: 05/16/2018, 11/08/2017. Findings: Lung bases are clear. Liver, spleen, pancreas, adrenal gland and right kidney are stable. Right renal hypodensities are again noted and unchanged suggesting cysts. The patient is noted to be status post left nephrectomy. The visualized enteric system is without obstruction or acute inflammatory process. Scattered colonic diverticulosis noted without evidence for acute diverticulitis. No ascites. No adenopathy. No free air. Atherosclerotic changes of the aorta and vasculature noted without aneurysm. Surrounding musculoskeletal structures demonstrate degenerative change without focal osseous abnormality. The previously identified fluid collection along the left lateral aspect of the aorta at the level of the left renal fossa has resolved. Impression: 1. Evidence for prior left nephrectomy. 2. Stable right renal hypodensities compatible with cysts. 3. Diverticulosis without acute diverticulitis. 4. Previously identified fluid collection along the left periaortic space has resolved. 5. No evidence for recurrence or metastatic disease. Specifically, no ascites, adenopathy, or focal inflammatory stranding and no mass lesion appreciated. Electronically Signed by Jacoby Child MD 04/30/2019 11:08 A
== END ==
LOC: M RAD 10:22
PROVIDERS: ATTEND Urology
DX: C64.2 Malignant neoplasm of left kidney, except renal pelvis (principal); Z90.5 Acquired absence of kidney; K57.90 Diverticulosis of intestine, part unspecified, without perforation or abscess without bleeding; I70.0 Atherosclerosis of aorta; N39.0 Urinary tract infection, site not specified

== ENCOUNTER → 2019-04-30 | Outpatient (REF) | payer MEDICARE, OTHER ==
[~2019-04-30] MED LIST changes: -OMEP1CAP73 PO; +OMEP20CA4 PO; +OMEP40CA2 PO; -OMEP40CA97 PO; +SIMV40TA2 PO; -SIMV40TA20 PO
== END ==
LOC: M LAB REF 17:21
PROVIDERS: ATTEND Internal Medicine Nephrology
DX: N39.0 Urinary tract infection, site not specified (principal)

== ENCOUNTER → 2019-06-21 | Outpatient (REF) | payer MEDICARE, OTHER | LOC: M SMT 16:50 | PROVIDERS: ATTEND Urology | DX: C67.9 Malignant neoplasm of bladder, unspecified (principal) ==

== ENCOUNTER → 2019-10-21 | Outpatient (REF) | payer MEDICARE, OTHER ==
[~2019-10-21] MED LIST changes: +OMEP-172 PO; -OMEP20CA4 PO; -OMEP40CA2 PO; +OMEP40CA97 PO; -SIMV40TA2 PO; +SIMV40TA20 PO
[2019-10-21 13:53] LABS: ALBUMIN 3.7 GM/DL (3.2-5.2); BILIRUBIN,TOTAL 0.6 MG/DL (0.2-1.0); CREATININE FOR GFR 2.52 MG/DL (0.70-1.30); GLOMERULAR FILTRATION RATE 25.8 (>35); POTASSIUM SERUM 4.4 MEQ/L (3.5-5.1); TOTAL PROTEIN 7.1 GM/DL (6.4-8.2)
[2019-10-21 14:01] LABS: HEMOGLOBIN A1c 7.7 %
== END ==
LOC: M SFHCPLAZ 10:46
PROVIDERS: ATTEND Internal Medicine
DX: I12.9 Hypertensive chronic kidney disease with stage 1 through stage 4 chronic kidney disease, or unspecified chronic kidney disease (principal); E11.9 Type 2 diabetes mellitus without complications
CPT/HCPCS: 36415; 80053; 83036; G0463

== ENCOUNTER → 2020-01-13 | Outpatient (REF) | payer MEDICARE, OTHER ==
[~2020-01-13] MED LIST changes: -OMEP-172 PO; +OMEP1CAP73 PO
== END ==
LOC: M SMT 17:05
PROVIDERS: ATTEND Urology
DX: C67.9 Malignant neoplasm of bladder, unspecified (principal)

== ENCOUNTER → 2020-01-14 | Outpatient (CLI) | payer MEDICARE, OTHER ==
--- NOTE | 2020-01-14 20:29 | REPPI ---
Clinical: Lower back pain with prostate cancer. Technique: AP, lateral, bilateral oblique and coned-down views of the lumbosacral spine. Findings: Alignment and lordosis maintained. No acute fracture / compression injury or subluxation. No obvious lytic/blastic lesions are identified. Moderate multilevel degenerative changes include endplate sclerosis, minimal disc space narrowing, marginal spurring/osteophyte formation, and hypertrophic facet changes. Impression: Moderate multilevel degenerative changes. No acute fracture / compression injury or subluxation. Electronically Signed by Jacoby Child MD 01/14/2020 08:20 P
== END ==
LOC: M PLAIMG 12:12
PROVIDERS: ATTEND Internal Medicine
DX: M54.5 Low back pain (principal); Z85.46 Personal history of malignant neoplasm of prostate

== ENCOUNTER → 2020-02-28 | Outpatient (REF) | payer MEDICARE, OTHER | LOC: M LAB REF 18:11 | PROVIDERS: ATTEND Dermatology | DX: D23.61 Other benign neoplasm of skin of right upper limb, including shoulder (principal); L72.0 Epidermal cyst ==

== ENCOUNTER → 2020-04-28 | Outpatient (REF) | payer MEDICARE, OTHER ==
[2020-04-28 13:40] LABS: CHOLESTEROL RISK RATIO 2.906 (<5)
[2020-04-28 15:37] LABS: HEMOGLOBIN A1c 8.4 %
== END ==
LOC: M SFHCPLAZ 11:44
PROVIDERS: ATTEND Internal Medicine
DX: E78.00 Pure hypercholesterolemia, unspecified (principal); E11.9 Type 2 diabetes mellitus without complications

== ENCOUNTER → 2020-07-24 | Outpatient (REF) | payer MEDICARE, OTHER ==
[~2020-07-24] MED LIST changes: -ASPI81TA85 PO; +ASPI81TA86 PO; +CALC1CAP31; +TRAZ-252
== END ==
LOC: M SMT 13:26
PROVIDERS: ATTEND Urology
DX: C67.9 Malignant neoplasm of bladder, unspecified (principal)

== ENCOUNTER 2020-08-30 13:27 | Emergency (ER) | payer MEDICARE, OTHER ==
[~2020-08-30] VITALS: Ht 180.3 cm; Wt 78.8 kg
[~2020-08-30 13:27] MED LIST changes: -CALC1CAP31; -TRAZ-252
[2020-08-30] MEDS ORDERED: TRAZ-252 (13:47)
[2020-08-30] MEDS ORDERED: CALC1CAP31 (13:47)
--- NOTE | 2020-08-30 14:34 | REP ---
INDICATION: Altered Mental Status. COMPARISON: Comparison is CT April 01, 2017.. TECHNIQUE: Helical scanning is acquired. 5 mm axial images were reformatted. Coronal MPR images were generated. FINDINGS: Bone window settings demonstrate intact bony calvarium. There is moderate vascular calcification in the distal internal carotid arteries and the distal vertebral arteries is slightly calcified. There is generalized volume loss unchanged from the prior study. Small vessel atherosclerotic changes are noted in the periventricular white matter bilaterally. There is an old lacunar infarct again noted in the left cerebellar hemisphere. No acute infarction is seen. There is no evidence of intracranial hemorrhage. No extra-axial fluid collection, mass, or midline shift is seen. IMPRESSION: Diffuse atrophy, vascular calcification, small vessel changes. 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 No acute intracranial abnormality.. <Electronically signed by Angelo Dotson > 08/30/20 [id number]
--- NOTE | 2020-08-30 14:35 | REP ---
INDICATION: Altered Mental Status. COMPARISON: April 30, 2019. TECHNIQUE: Sitting AP chest radiograph. FINDINGS: Monitoring electrodes are seen. The lungs are well inflated and clear. The pleural angles are sharp. Heart size is normal. The aorta is calcific. Pulmonary vasculature is not increased. IMPRESSION: Negative portable chest x-ray. <Electronically signed by Angelo Dotson > 08/30/20 [id number]
[2020-08-30 15:04] LABS: BASO # 0.1 10^3/uL (0.0-0.2); BASO % 0.6 % (0.0-1.0); EOS # 0.1 10^3/uL (0.0-0.5); EOS % 0.7 % (0.0-3.0); HEMATOCRIT 40.9 % (42.0-52.0); HEMOGLOBIN 13.6 g/dl (13.5-17.5); LYMPH % 10.3 % (24.0-44.0); MEAN CORPUSCULAR HEMOGLOBIN 31.1 pg (27.0-33.0); MEAN CORPUSCULAR HGB CONC 33.3 g/dl (32.0-36.5); MEAN CORPUSCULAR VOLUME 93.4 fl (80.0-96.0); MONO # 0.6 10^3/uL (0.0-0.8); MONO % 6.1 % (0.0-5.0); NEUTROPHILS # 7.8 10^3/uL (1.5-8.5); NEUTROPHILS % 81.6 % (36.0-66.0); PLATELET COUNT, AUTOMATED 206 10^3/uL (150-450); RED BLOOD COUNT 4.38 10^6/uL (4.30-6.10); WHITE BLOOD COUNT 9.6 10^3/uL (4.0-10.0)
[2020-08-30 15:39] LABS: ACETAMINOPHEN LEVEL < 2.0 UG/ML (10.0-30.0); ALBUMIN 3.7 GM/DL (3.2-5.2); ALT/SGPT 19 U/L (12-78); BILIRUBIN,DIRECT 0.3 MG/DL (0.0-0.2); BILIRUBIN,TOTAL 0.9 MG/DL (0.2-1.0); BLOOD UREA NITROGEN 35 MG/DL (7-18); CALCIUM LEVEL 8.5 MG/DL (8.8-10.2); CARBON DIOXIDE LEVEL 22 MEQ/L (21-32); CHLORIDE LEVEL 110 MEQ/L (98-107); CPK CREATINE PHOSPHOKINASE 85 U/L (39-308); CREATININE FOR GFR 2.72 MG/DL (0.70-1.30); ETHYL ALCOHOL (ETHANOL) < 0.003 % (0.000-0.010); GLOMERULAR FILTRATION RATE 23.6 (>35); GLUCOSE, FASTING 228 MG/DL (70-100); MB/CK RELATIVE INDEX 5.88 (< OR =4); POTASSIUM SERUM 5.2 MEQ/L (3.5-5.1); SALICYLATE LEVEL < 1.7 MG/DL (5.0-30.0); SODIUM LEVEL 139 MEQ/L (136-145); TROPONIN I < 0.02 NG/ML (< 0.10)
[2020-08-30 16:01] VITALS: BP 135/71
--- NOTE | 2020-08-31 07:53 | ECGEPIP ---
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
== END 2020-08-30 16:14 | disposition home or self-care (01) ==
LOC: M ED 13:27
DX: R55 Syncope and collapse (principal); N18.9 Chronic kidney disease, unspecified; E11.9 Type 2 diabetes mellitus without complications; I12.9 Hypertensive chronic kidney disease with stage 1 through stage 4 chronic kidney disease, or unspecified chronic kidney disease; E78.5 Hyperlipidemia, unspecified; I25.10 Atherosclerotic heart disease of native coronary artery without angina pectoris; Z79.899 Other long term (current) drug therapy; Z79.01 Long term (current) use of anticoagulants; Z88.8 Allergy status to other drugs, medicaments and biological substances
CPT/HCPCS: 36415; 70450; 71045; 80048; 80076; 82550; 82553; 84443; 84484; 85025; 93005; 93041; 94760; 99285; G0480

== ENCOUNTER → 2020-10-05 | Outpatient (REF) | payer MEDICARE, OTHER ==
[~2020-10-05] MED LIST changes: +CALC1CAP31; +TRAZ-252
[2020-10-05 14:23] LABS: CHOLESTEROL RISK RATIO 3.211 (<5)
== END ==
LOC: M PLALAB 09:49
PROVIDERS: ATTEND Internal Medicine
DX: E78.00 Pure hypercholesterolemia, unspecified (principal); E11.9 Type 2 diabetes mellitus without complications

== ENCOUNTER → 2020-10-09 | Outpatient (REF) | payer MEDICARE, OTHER | LOC: M LAB REF 16:31 | PROVIDERS: ATTEND Dermatology | DX: C44.311 Basal cell carcinoma of skin of nose (principal); L57.0 Actinic keratosis ==

== ENCOUNTER → 2020-10-15 | Outpatient (CLI) | payer MEDICARE, OTHER ==
--- NOTE | 2020-10-15 10:23 | RADONC.CN ---
Radiation Oncology Hx/Consult Radiation Oncology Consult Date of Service: Oct 15, 2020 Pt Identifier Gt Lindsay is a 89 year old male with a long skin cancer history and a recently biopsied T1N0M0 basal cell carcinoma on the nasal tip. He is referred for consideration of RT to manage this lesion. Diagnosis/Treatment History Oncologic History Remote Hx of prostate cancer diagnosed in 1974 recurrence/progression s/p LDR implant in 2001, underwent nephrectomy for early stage RCC in 2016. Developed bladder cancer in 2018, managed with TURBT serial cystos. 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 These were biopsied by Dr. Tran on 10/12/20 and the left ala lesion showed AK, the nasal tip lesion was BCC. 10/12/20 Pathology: FINAL DIAGNOSIS A Skin, nose tip, shave biopsy: Basal cell carcinoma, micronodular pattern extending to the base. B Skin, left nose, shave biopsy: Actinic keratosis. 10/13/20 - 6 Interval History Patient is here with his . She is a patient at this practice as well. He reports that the nasal lesions were not painful or bothersome, his only ENT symptoms are post nasal drip which has been present for many years. He has a long history of skin cancers and AK dating back 20 years. He has no post biopsy complaints. He does have multiple comorbid medical problems but is overall functional at home. Past Medical History: Rhinitis Prostate cancer 1974; 2001 s/p LDR superficial bladder cancer CKD (post surgical) DMII GERD CAD HPL HTN BENIGNO PAF CVA Past Surgical History: Left nephrrectomy 2017 TURBT 2018; 2019 Cataracts Cholecystectomy 1972 Multiple skin cancer resections/cryoablations Tonsillectomy Family History: Father prostate cancer () Mother breast and colon cancer () Social History: Pipe smoker 30+ years Non-drinker Allergies / Meds Allergies: Coded Allergies: MASON Inhibitors (Verified Allergy, Severe, face swelling, 03/15/19) lisinopril (Verified Allergy, Severe, face swelling, 03/07/19) valsartan (Verified Allergy, Severe, face swelling, 03/07/19) Aminoglycosides (Verified Allergy, Intermediate, rash, 03/07/19) bacitracin (Verified Allergy, Intermediate, rash, 03/07/19) neomycin (Verified Allergy, Intermediate, rash, 03/07/19) ARB-Angiotensin Receptor Antagonist (Verified Allergy, Unknown, 03/07/19) polymyxin B (Verified Allergy, Unknown, RASH, 03/07/19) Home Meds Reported Medications Calcitriol (Calcitriol) 0.25 Mcg Capsule 08/30/20 Trazodone HCl (Trazodone HCl) 50 Mg Tablet 08/30/20 Esomeprazole Magnesium (Nexium 24Hr) 20 Mg Cap, 40 MG PO DAILY, CAP 07/25/18 Aliskiren Hemifumarate (Tekturna) 150 Mg Tab, 150 MG PO DAILY, TAB 07/25/18 Apixaban (Eliquis) 2.5 Mg Tab, 2.5 MG PO BID, TAB 04/10/17 Glipizide (Glipizide) 5 Mg Tab, 5 MG PO DAILY, TAB TAKES AT LUNCHTIME 04/10/17 Potassium Chloride (Klor-Con M20) 20 Meq Tabcr, 10 MEQ PO QHS, TABCR 04/01/17 Tamsulosin HCl (Flomax) 0.4 Mg Cap, 0.4 MG PO DAILY, CAP 03/14/17 Donepezil HCl (Aricept) 10 Mg Tab, 10 MG PO DAILY, TAB 12/23/16 Sitagliptin Phosphate (Januvia) 100 Mg Tab, 50 MG PO DAILY, TAB TAKES AT LUNCHTIME 07/22/16 Simvastatin (Simvastatin) 40 Mg Tab, 40 MG PO DAILY, TAB 07/22/16 Review of Systems General: Reports: Normal Appetite Constitutional: Reports: Fatigue; Denies: Weight Loss Eyes: Denies: Vision change HEENT: Reports: Post Nasal Drip; Denies: Head Aches, Sinus Congestion, Sore Throat Skin: Denies: Rash Pulmonary: Denies: Dyspnea, Cough Cardiovascular: Denies: Chest Pain, Palpitations Gastrointestinal: Denies: Nausea, Vomiting Genitourinary: Reports: Frequency, Incontinence Hematologic: Denies: Bruising, Bleeding Excessively Musculoskeletal: Reports: Back pain; Denies: Muscle pain Neurological: Denies: Weakness, Numbness Psych: Reports: Mood Normal Vital Signs Ht 71" Wt 177 lb T 97.4 P 90 RR 18 BP 146/87 O2 90% Pain 0 Fatigue 0 General Exam: Positive: Alert, Cooperative; Negative: No Acute Distress Eye Exam: Positive: PERRLA, EOMI; Negative: Conjunctiva & lids normal (Scleral injection noted R>L) ENT EXAM: Positive: Atraumatic, Pharynx Normal, Nares Patent, Pinna Normal Neck Exam: Positive: Supple Chest Exam: Positive: Normal air movement Heart Exam: Positive: Rate Normal, Regular Rhythm Abdomen Exam: Positive: Soft Skin Exam: Positive: Nl turgor and temperature, Lesion (On the left central portion of the nasal tip there is a 6 mm scabbed over biopsy site without nodularity or drainage. It is not tender. on the left posterior aspect of the nasal ala there is a 1 cm ovoid biopsy site healing well. No other facial lesions concerning for cancer are present. ) Neuro Exam: Positive: Normal Speech, Cranial Nerves 3-12 NL Psych Exam: Positive: Mental status NL, Mood NL Diagnostic and Laboratory Diagnostic Review Radiologic images, relevant labs and pathology reports were personally reviewed and discussed with Mr. Lindsay. Assessment and Plan Impression Mr. Lindsay is a 89 year old male with a long skin cancer history and a recently biopsied T1N0M0 basal cell carcinoma on the nasal tip. He is referred for consideration of RT to manage this lesion. Stage [id number] BCC of the nasal tip Performance Status ECOG 1 Plan We had an extensive discussion with Mr. Lindsay regarding the diagnosis at hand and available therapeutic options. I recommend RT to treat this lesion, as it is on the nasal tip and the risk of chondritis is high with hypofractionation, I would give 60 Gy in 30 fractions, which should be sufficient to eradicate this spot and offer the best possible cosmetic outcome. I will treat him with 6 MeV electrons and a custom wax bolus, he will be in a face mask for immobilization. The field will be quite small, minimum 3 cm diameter for adequate buildup and dosimetry. I anticipate his only side effect will be redness and dry desquamation, possible mild nasal dryness as well which should be self-limited. He agrees with the plan. We discussed the logistics of receiving radiation therapy in detail including th e need for a 1-time planning session. This can occur next week. After discussing the risks, benefits and alternatives to radiation therapy, Mr. Lindsay was amenable to pursuing radiotherapy. All questions were answered to the patient's satisfaction. I also verified that he has appropriate urologic follow up for his history of multiple cancers. We instructed the patient that if there were any questions,concerns or changes in clinical status in the interim to contact us. Recommendations RT 60 Gy in 30 fractions with electrons and wax bolus Simulation next week SHIRA SPEARS MD Oct 15, 2020 10:23
== END ==
LOC: M ONCR 09:09
PROVIDERS: ATTEND General Practice
DX: C44.311 Basal cell carcinoma of skin of nose (principal)

== ENCOUNTER 2020-10-21 12:52 | Outpatient (RCR) | payer MEDICARE, OTHER | END 2020-10-29 | LOC: M ONCR 12:52 | PROVIDERS: ATTEND General Practice | DX: C44.311 Basal cell carcinoma of skin of nose (principal) ==

== ENCOUNTER → 2020-10-28 | Outpatient (REF) | payer MEDICARE, OTHER | LOC: M LAB REF 16:56 | PROVIDERS: ATTEND Internal Medicine Nephrology | DX: N39.0 Urinary tract infection, site not specified (principal) ==

== ENCOUNTER 2020-11-09 09:54 | Observation (INO) | payer MEDICARE, OTHER ==
[~2020-11-09] VITALS: Ht 182.9 cm; Wt 76.9 kg
[2020-11-09] MEDS: APIXABAN 2.5 MG TAB (ELIQUIS) PO SCH ×2 (09:00→20:40)
[~2020-11-09 09:54] MED LIST changes: -CALC1CAP31; +CALC1CAP31 PO; +CALCITRIOL 0.25 MCG CAP (S0169) PO SCH
[2020-11-09 10:07] VITALS: BP 140/68
[2020-11-09 10:22] LABS: BASO # 0.1 10^3/uL (0.0-0.2); BASO % 0.9 % (0.0-1.0); EOS # 0.1 10^3/uL (0.0-0.5); EOS % 1.3 % (0.0-3.0); HEMATOCRIT 40.5 % (42.0-52.0); HEMOGLOBIN 13.7 g/dl (13.5-17.5); LYMPH # 1.2 10^3/uL (1.5-5.0); LYMPH % 12.8 % (24.0-44.0); MEAN CORPUSCULAR HGB CONC 33.8 g/dl (32.0-36.5); MEAN CORPUSCULAR VOLUME 94.6 fl (80.0-96.0); MONO # 0.7 10^3/uL (0.0-0.8); MONO % 7.6 % (0.0-5.0); NEUTROPHILS # 7.2 10^3/uL (1.5-8.5); NEUTROPHILS % 76.8 % (36.0-66.0); PLATELET COUNT, AUTOMATED 202 10^3/uL (150-450); RED BLOOD COUNT 4.28 10^6/uL (4.30-6.10); WHITE BLOOD COUNT 9.4 10^3/uL (4.0-10.0)
--- NOTE | 2020-11-09 10:30 | REP ---
INDICATION: CVA - Nursing interventions must not delay CT COMPARISON: 08/30/2020 TECHNIQUE: Axial noncontrast images from the skull base to the thoracic inlet with coronal reformations. This CT examination was performed using the following dose reduction techniques: Automated exposure control, adjustment of mA and/or kv according to the patient's size, and use of iterative reconstruction technique. FINDINGS: Age-related atrophy and microvascular ischemic changes are appreciated. The ventricles and sulci are symmetric. Warner-white differentiation is maintained. There is no evidence for acute intracranial hemorrhage, mass/mass effect, pathology or infarction. No extra-axial fluid collection. Calvarium is intact. Paranasal sinuses and mastoid air cells are clear. IMPRESSION: Age related atrophy and microvascular ischemic changes. No acute intracranial hemorrhage, infarction, or mass/mass effect. <Electronically signed by Jacoby Child > 11/09/20 [id number]
[2020-11-09 10:33] LABS: INR 1.11; PARTIAL THROMBOPLASTIN TIME 24.9 SECONDS (24.2-38.5); PROTHROMBIN TIME 14.5 SECONDS (12.5-14.3)
--- NOTE | 2020-11-09 10:34 | REP ---
INDICATION: CVA COMPARISON: 08/30/2020 TECHNIQUE: Portable AP view of the chest FINDINGS: The mediastinum and cardiac silhouette are stable and within normal limits for portable technique. The lung coronado are clear without acute consolidation, effusion, or pneumothorax. Skeletal structures are intact. IMPRESSION: No acute cardiopulmonary process appreciated. <Electronically signed by Jacoby Child > 11/09/20 [id number]
[2020-11-09 10:53] LABS: BLOOD UREA NITROGEN 27 MG/DL (7-18); CALCIUM LEVEL 8.7 MG/DL (8.8-10.2); CARBON DIOXIDE LEVEL 26 MEQ/L (21-32); CHLORIDE LEVEL 105 MEQ/L (98-107); CK-MB VALUE MASS 2.8 NG/ML (<3.6); CPK CREATINE PHOSPHOKINASE 60 U/L (39-308); CREATININE FOR GFR 2.27 MG/DL (0.70-1.30); GLOMERULAR FILTRATION RATE 29.1 (>35); GLUCOSE, FASTING 253 MG/DL (70-100); MB/CK RELATIVE INDEX 4.67 (< OR =4); POTASSIUM SERUM 4.7 MEQ/L (3.5-5.1); SODIUM LEVEL 140 MEQ/L (136-145); TROPONIN I < 0.02 NG/ML (< 0.10)
[2020-11-09] MEDS ORDERED: MAGN400T3 PO (11:38)
[2020-11-09] MEDS ORDERED: GLIM4TAB5 PO (11:38)
[2020-11-09] MEDS ORDERED: CETI-24 PO (11:38)
[2020-11-09] MEDS ORDERED: D31000TA2 PO (11:38)
[2020-11-09] MEDS ORDERED: ESOM40CA35 PO (11:38)
[2020-11-09 12:39] LABS: RSV AMPLIFICATION NEGATIVE (NEGATIVE)
[2020-11-09] MEDS ORDERED: ACETAMINOPHEN TAB 650MG DOSE (2X325MG) PO PRN (13:00)
[2020-11-09] MEDS ORDERED: DEXTROSE 50% 50 ML SYRINGE IV PRN (13:15)
[2020-11-09] MEDS ORDERED: PILL CUTTER 1 EACH XX PRN (13:15)
[2020-11-09] MEDS ORDERED: GLUCOSE 4GM CHEW TABLET PO PRN (13:15)
[2020-11-09] MEDS ORDERED: GLUCAGON INJ 1MG VIAL SC PRN (13:15)
--- NOTE | 2020-11-09 14:22 | HPEPDOC ---
[facility] Medical History & Physical Date of Admission Nov 09, 2020 Date of Service: Nov 09, 2020 Attending Physician: LINDSAY SUAREZ MD History and Physical Chief complaint: Almost passed out in shower this morning HPI: 89-year-old with hypertension, diabetes mellitus type 2, hyperlipidemia, GERD, history of renal cell carcinoma status post left nephrectomy, prostate cancer status post radiation seed therapy, chronic atrial fibrillation on eliquis, chronic kidney disease stage 3-4 who was brought in via EMS for near syncope at home. Patient reports having gotten up early and was taking a lukewarm shower before a PCP appt with Dr. Alvarez, [facility] and a dermatology appt for his BCC. He reports a prior history of near syncopal episodes with hot showers before and he has traditionally take lukewarm showers since. This morning, he woke up ok but when he was in the shower he felt sudden weakness and faint and had to get out and sit down. He did not fall or have LOC. His described him as pale and unwell appearing and called EMS that brought him to the ED. In the ED, hewas hemodynamically stable, afebrile, breathing comfortably. I believe he received 500cc bolus enroute to ED. He had no complaints by the time I examined him and denied any recent chest pain, palpitations, dyspnea, congestion, rhinorrhea, fever, chills, sweats, diarrhea, abdominal pain, headache, vertigo. Workup was notable for WBC 9.4, Hgb 13.7, platelets 202, Na 140, K 4.7, Cr 2.27 (at baseline), troponin wnl, EKG without ischemic signs, CXR without acute pathology and CT head that did not show acute infarct, hemorrhage, masses or mass effect. He is now being admitted for potential TIA. Past surgical history: Left nephrectomy, appendectomy, cholecystectomy Family history: He reports that his father of heart disease. Social history: The patient currently lives at home with his . He smokes an occasional pipe. He quit cigarettes in 1994.Drinks approximately 1 alcoholic drink monthly. Allergies: MASON inhibitor's, aminoglycosides, ARBs, bacitracin, neomycin, polymyxin Review of systems: 12 point was grossly negative except as noted in the HPI Home meds: See below PHYSICAL EXAMINATION: Vitals: HDS, normoactive, HR70s, sinus rhythm on telemetry, RR 16, breathing comfortably on room air Gen: awake, alert, no acute distress, conversational Eyes: Extraocular movements intact, normal sclera ENT: Moist mucous membranes Cardiovascular: RRR, no murmurs rubs or gallops Lungs: clear to auscultation bilaterally, no rales, rhonchi, or wheeze Abdomen: Soft, NT/ND, normal BS Musculoskeletal: normal range of motion Extremities: No peripheral edema Neuro: alert and oriented 3, normal speech, no focal deficits, CN 3-12 intact Psych: Normal mood and affect. Great historian Labs and radiology: summarized above, see below for details Assessment and plan: 89-year-old M with hypertension, diabetes mellitus type 2, hyperlipidemia, GERD, history of renal cell carcinoma status post left nephrectomy, prostate cancer status post radiation seed therapy, recent diagnosis of atrial fibrillation, chronic kidney disease stage 3-4 who was BIBEMS for near syncope and admitted to medicine with c/f TIA vs. orthostasis vs. vagal presyncope. 1. Near syncope: Has a history of Afib, but no noted ongoing fib at this point, in sinus and at a normal rate at this time -Trop was negative -EKG was NSR -Will keep in telemetry for monitoring paroxysmal dysrhythmias -Appears euvolemic, got 500cc bolus --> will check orthostatic vitals -carotid ultrasound -MRI/MRA brain r/o acute CVA -Last TTE was in 2017 with grade 2 diastolic dysfunction with normal EF and no significant valvular disease Chronic kidney disease stage 3-4: History recent nephrectomy, and it appears that his creatinine is at his baseline. -monitor daily BMP Diabetes mellitus type 2: -Hold glipizide and Januvia. -Start sliding scale insulin, FSBG AC/HS, hypoglycemia protocol -consistent carb diet 6. Hyperlipidemia: -Continue home statin. GERD: -protonix 40 QD Chronic paroxysmal A. fib: in sinus rhythm as this time -continue home apixaban DVT prophylaxis: on eliquis Dispo: medsurg, obs CODE STATUS: DNR/DNI Vital Signs Vital Signs Date Time Temp Pulse Resp B/P (MAP) Pulse Ox O2 Delivery O2 Flow Rate FiO2 11/09/20 10:15 97.8 62 100 11/09/20 10:14 129/60 (83) 11/09/20 10:07 20 Laboratory Data Labs 24H Laboratory Tests 2 11/09/20 10:07: Immature Granulocyte % (Auto) 0.6, Neutrophils (%) (Auto) 76.8H, Lymphocytes (%) (Auto) 12.8L, Monocytes (%) (Auto) 7.6H, Eosinophils (%) (Auto) 1.3, Basophils (%) (Auto) 0.9, Neutrophils # (Auto) 7.2, Lymphocytes # (Auto) 1.2L, Monocytes # (Auto) 0.7, Eosinophils # (Auto) 0.1, Basophils # (Auto) 0.1, Nucleated Red Blood Cells % (auto) 0.0, Anion Gap 9, Glomerular Filtration Rate 29.1L, Lactic Acid Level 1.6, Calcium Level 8.7L, Total Creatine Kinase 60, Creatine Kinase MB 2.8, Creatine Kinase MB Relative Index 4.67H, Troponin I < 0.02, Thyroid Stimulating Hormone (TSH) 7.640H 11/09/20 10:08: Prothrombin Time 14.5H, Prothromb Time International Ratio 1.11, Activated Partial Thromboplast Time 24.9L 11/09/20 10:09: POC Glucose (Misc Panel) 238H, POC Sodium (Misc Panel) 139, POC Potassium (Misc Panel) 4.7, POC Chloride (Misc Panel) 104, POC Total CO2 (Misc Panel) 27.0, POC Blood Urea Nitrogen (Misc Panel 27H, POC Ionized Calcium (Misc Panel) 4.6, POC Creatinine (Misc Panel) 2.3H, POC Hematocrit (Misc Panel) 39.0 11/09/20 11:52: Coronavirus (COVID-19)(PCR) NEGATIVE, Influenza Type A (RT-PCR) NEGATIVE, Influenza Type B (RT-PCR) NEGATIVE, Respiratory Syncytial Virus (PCR) NEGATIVE CBC/BMP Laboratory Tests 11/09/20 10:07 Home Medications Scheduled Apixaban (Eliquis) 2.5 Mg Tab, 2.5 MG PO BID Calcitriol (Calcitriol) 0.25 Mcg Capsule, 0.25 MCG PO 3XW MON/WED/FRI MORNINGS Cetirizine HCl (Cetirizine HCl) 10 Mg Tablet, 10 MG PO DAILY TAKES AT NOON Cholecalciferol (Vitamin D3) (Vitamin D3) 1,000 Unit Tablet, 500 UNITS PO DAILY Donepezil HCl (Aricept) 10 Mg Tab, 10 MG PO DAILY TAKES AT NOON Esomeprazole Magnesium (Esomeprazole Magnesium Dr) 40 Mg Capsule.dr, 40 MG PO DAILY TAKES AT NOON Glimepiride (Glimepiride) 4 Mg Tablet, 4 MG PO BID Magnesium Oxide (Magnesium Oxide) 400 Mg Tablet, 400 MG PO DAILY Potassium Chloride (Klor-Con M20) 20 Meq Tabcr, 10 MEQ PO QHS Simvastatin (Simvastatin) 40 Mg Tab, 40 MG PO QHS Sitagliptin Phosphate (Januvia) 100 Mg Tab, 50 MG PO DAILY Tamsulosin HCl (Flomax) 0.4 Mg Cap, 0.4 MG PO DAILY Allergies Coded Allergies: MASON Inhibitors (Verified Allergy, Severe, face swelling, 03/15/19) lisinopril (Verified Allergy, Severe, face swelling, 03/07/19) valsartan (Verified Allergy, Severe, face swelling, 03/07/19) Aminoglycosides (Verified Allergy, Intermediate, rash, 03/07/19) bacitracin (Verified Allergy, Intermediate, rash, 03/07/19) neomycin (Verified Allergy, Intermediate, rash, 03/07/19) ARB-Angiotensin Receptor Antagonist (Verified Allergy, Unknown, 03/07/19) polymyxin B (Verified Allergy, Unknown, RASH, 03/07/19) A-FIB/CHADSVASC A-FIB History Current/History of A-Fib/PAF?: Yes Current PO Anticoag Therapy: Yes Treatment Treatment ordered: Apixaban LINDSAY SUAREZ MD Nov 09, 2020 14:17
--- NOTE | 2020-11-09 15:58 | REP ---
INDICATION: near syncope w/ hx of tia COMPARISON: None. TECHNIQUE: Warner scale and color Doppler evaluation using linear high frequency transducer Findings: FINDINGS: Two-dimensional warner scale and color images demonstrate normal arterial lumen with laminar flow and no appreciable narrowing. Color Doppler interrogation demonstrates normal arterial wave patterns and velocities with no significant spectral broadening. Normal flow direction is appreciated in the left vertebral artery while the right vertebral artery is not identified. ICA peak systolic velocity: Right 101 cm/s; Left 93.5 cm/s ICA diastolic velocity: Right 26.1 cm/s; Left 14.5 cm/s ECA peak systolic velocity: Right 110 cm/s; Left 111 cm/s CCA peak systolic velocity: Right 117 cm/s; Left 97.1 cm/s ICA/CCA ratio: Right 0.86 cm/s; Left 0.96 cm/s IMPRESSION: No hemodynamically significant areas of narrowing or stenosis appreciated. Based on set standards narrowing falls within the normal/less than 50% range. <Electronically signed by Jacoby Child > 11/09/20 [id number]
[2020-11-09] MEDS: HumaLOG INSULIN (NovoLOG) PER UNIT SC SCH (17:30)
[2020-11-09 18:36] VITALS: BP 159/77
[2020-11-09 19:00] VITALS: BP 159/77
--- NOTE | 2020-11-09 20:09 | REPVR ---
PROCEDURE INFORMATION: Exam: MR Head Without Contrast Exam date and time: 11/09/2020 7:27 PM Age: 89 years old Clinical indication: Other: Near syncope w/ HX of TIA TECHNIQUE: Imaging protocol: MR of the head without contrast. COMPARISON: CT Head without contrast 11/09/2020 10:12 AM FINDINGS: Brain: There is mild diffuse atrophy. There is no evidence of acute stroke. There is bright signal intensity in the deep white matter along the lateral ventricles consistent with chronic ischemic change. A demyelinating process could given identical appearance. Causes of demyelination in this age group would include lupus, collagen vascular disease and glucan cephalopathy caused by a viral etiology. Paranasal sinuses: Clear paranasal sinuses. Mastoid air cells: Clear mastoid air cells. Orbits: Unremarkable. Soft tissues: Unremarkable. IMPRESSION: 1. No evidence of acute stroke. 2. Bright signal intensity along the lateral ventricles is consistent with chronic ischemic changes. Electronically signed by: Jose Reed On 11/09/2020 20:09:32 PM
--- NOTE | 2020-11-09 20:18 | REPVR ---
PROCEDURE INFORMATION: Exam: MR Angiogram Head Without Contrast, Arteries Exam date and time: 11/09/2020 7:27 PM Age: 89 years old Clinical indication: Other: Near syncope w/ HX of TIA TECHNIQUE: Imaging protocol: MR angiogram head without contrast. Exam focused on the arteries. 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 Basilar artery: There is no evidence of tip of the basilar aneurysm. Left posterior cerebral artery: There was opacification of both pericallosal vessels from the left. Other vasculature: There is no evidence of aneurysm of the [id number]. Mastoid air cells: There is a very large right posterior communicating artery and a small left consistent with congenital variation. 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 Electronically signed by: Jose Reed On 11/09/2020 20:18:31 PM
[2020-11-09] MEDS: CETIRIZINE (ZyrTEC) 10 MG TAB PO SCH (20:38)
[2020-11-09] MEDS: DONEPEZIL 5 MG TAB PO SCH (20:38)
[2020-11-09] MEDS: TAMSULOSIN 0.4 MG CAP PO SCH (20:39)
[2020-11-09] MEDS: PANTOPRAZOLE 40MG TAB (PROTONIX) PO SCH (20:39)
[2020-11-09] MEDS: MAGNESIUM OXIDE 400 MG TAB (MAG-OX) PO SCH (20:39)
[2020-11-09] MEDS: ASPIRIN 81 MG CHEW TABLET PO SCH (20:39)
[2020-11-09] MEDS: VITAMIN D 1,000 INTERNATIONAL UNITS TABLET PO SCH (20:40)
[2020-11-09] MEDS ORDERED: HumaLOG INSULIN (NovoLOG) PER UNIT SC SCH (21:00)
[2020-11-09] MEDS ORDERED: SIMVASTATIN 40 MG TAB PO SCH (21:00)
[2020-11-09] MEDS ORDERED: POTASSIUM CHLORIDE 10 MEQ SR TABLET PO SCH ×2 (21:00)
[2020-11-09 22:00] VITALS: BP 152/76
[2020-11-10 05:48] LABS: HEMATOCRIT 37.2 % (42.0-52.0); HEMOGLOBIN 12.6 g/dl (13.5-17.5); MEAN CORPUSCULAR HEMOGLOBIN 31.8 pg (27.0-33.0); MEAN CORPUSCULAR HGB CONC 33.9 g/dl (32.0-36.5); MEAN CORPUSCULAR VOLUME 93.9 fl (80.0-96.0); PLATELET COUNT, AUTOMATED 198 10^3/uL (150-450); RED BLOOD COUNT 3.96 10^6/uL (4.30-6.10); WHITE BLOOD COUNT 7.9 10^3/uL (4.0-10.0)
[2020-11-10 06:00] VITALS: BP 134/71
[2020-11-10 06:12] LABS: CALCIUM LEVEL 8.2 MG/DL (8.8-10.2); CREATININE FOR GFR 2.18 MG/DL (0.70-1.30); GLOMERULAR FILTRATION RATE 30.5 (>35); MAGNESIUM LEVEL 2.1 MG/DL (1.8-2.4); POTASSIUM SERUM 4.3 MEQ/L (3.5-5.1)
[2020-11-10] MEDS: CETIRIZINE (ZyrTEC) 10 MG TAB PO SCH (08:30)
[2020-11-10] MEDS: MAGNESIUM OXIDE 400 MG TAB (MAG-OX) PO SCH (08:31)
[2020-11-10] MEDS: PANTOPRAZOLE 40MG TAB (PROTONIX) PO SCH (08:31)
[2020-11-10] MEDS: APIXABAN 2.5 MG TAB (ELIQUIS) PO SCH (08:31)
[2020-11-10] MEDS: DONEPEZIL 5 MG TAB PO SCH (08:31)
[2020-11-10] MEDS: TAMSULOSIN 0.4 MG CAP PO SCH (08:31)
[2020-11-10] MEDS: ASPIRIN 81 MG CHEW TABLET PO SCH (08:31)
[2020-11-10] MEDS: HumaLOG INSULIN (NovoLOG) PER UNIT SC SCH ×2 (08:32→12:40)
[2020-11-10] MEDS: VITAMIN D 1,000 INTERNATIONAL UNITS TABLET PO SCH (08:32)
[2020-11-10 09:00] VITALS: BP_SYST 124; BP_SYST 131; BP_DIAS 73; BP_DIAS 86; BP_DIAS 87
--- NOTE | 2020-11-10 16:25 | DS.PDOC ---
Discharge Summary General Date of Admission Nov 09, 2020 at 09:55 Date of Discharge November 10, 2020 Primary Care Physician: Cholo Alvarez Attending Physician: ELENA STERN MD Discharge Summary PROCEDURES PERFORMED DURING STAY: [None]. ADMITTING DIAGNOSES: 1. Near syncope DISCHARGE DIAGNOSES: 1. Near syncope COMPLICATIONS/CHIEF COMPLAINT: Chronic Renal Disease. HISTORY OF PRESENT ILLNESS: 89-year-old with hypertension, diabetes mellitus type 2, hyperlipidemia, GERD, history of renal cell carcinoma status post left nephrectomy, prostate cancer status post radiation seed therapy, chronic atrial fibrillation on eliquis, chronic kidney disease stage 3-4 who was brought in via EMS for near syncope at home. Patient reports having gotten up early and was ta pastor a lukewarm shower before a PCP appt with Dr. Alvarez, an appointment at the [facility] to get his covid vaccine shot and a dermatology appt for his BCC. He reports a prior history of near syncopal episodes with hot showers before and he has traditionally take lukewarm showers since. This morning, he woke up ok but when he was in the shower he felt sudden weakness and faint and had to get out and sit down. He did not fall or have LOC. His described him as pale and unwell appearing and called EMS that brought him to the ED. In the ED, he was hemodynamically stable, afebrile, breathing comfortably. I believe he received 500cc bolus enroute to ED. He had no complaints by the time I examined him and denied any recent chest pain, palpitations, dyspnea, congestion, rhinorrhea, fever, chills, sweats, diarrhea, abdominal pain, headache, vertigo. Workup was notable for WBC 9.4, Hgb 13.7, platelets 202, Na 140, K 4.7, Cr 2.27 (at baseline), troponin wnl, EKG without ischemic signs, CXR without acute pathology and CT head that did not show acute infarct, hemorrhage, masses or mass effect. He is now being admitted for potential TIA. HOSPITAL COURSE: The patient was admitted for workup of near syncope as he had a history of A. fib and TIAs in the past. He was placed on continuous telemetry and troponins were found to be negative. Orthostatic vital signs were negative. He underwent a carotid ultrasound which showed less than 50% blockage, and an MRI/MRA brain that ruled out any acute process. He also underwent a transthoracic echocardiogram which is currently pending read at the time of discharge. The patient remained stable throughout his hospital stay and was discharged with a plan to be referred to neurology and cardiology for possible Holter monitor. DISCHARGE MEDICATIONS: Please see below. ALLERGIES: Please see below. PHYSICAL EXAMINATION ON DISCHARGE: Vitals: HDS, normoactive, HR70s, sinus rhythm on telemetry, RR 16, breathing comfortably on room air Gen: awake, alert, no acute distress, conversational Eyes: Extraocular movements intact, normal sclera ENT: Moist mucous membranes Cardiovascular: RRR, no murmurs rubs or gallops Lungs: clear to auscultation bilaterally, no rales, rhonchi, or wheeze Abdomen: Soft, NT/ND, normal BS Musculoskeletal: normal range of motion Extremities: No peripheral edema Neuro: alert and oriented 3, normal speech, no focal deficits, CN 3-12 intact Psych: Normal mood and affect. Great historian LABORATORY DATA: Please see below. IMAGING: CT HEAD: FINDINGS: Age-related atrophy and microvascular ischemic changes are appreciated. The ventricles and sulci are symmetric. Warner-white differentiation is maintained. There is no evidence for acute intracranial hemorrhage, mass/mass effect, pathology or infarction. No extra-axial fluid collection. Calvarium is intact. Paranasal sinuses and mastoid air cells are clear. IMPRESSION: Age related atrophy and microvascular ischemic changes. No acute intracranial hemorrhage, infarction, or mass/mass effect. CXR: FINDINGS: The mediastinum and cardiac silhouette are stable and within normal limits for portable technique. The lung coronado are clear without acute consolidation, ef fusion, or pneumothorax. Skeletal structures are intact. IMPRESSION: No acute cardiopulmonary process appreciated. 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 Basilar artery: There is no evidence of tip of the basilar aneurysm. Left posterior cerebral artery: There was opacification of both pericallosal vessels from the left. Other vasculature: There is no evidence of aneurysm of the [id number]. Mastoid air cells: There is a very large right posterior communicating artery and a small left consistent with congenital variation. 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 BRAIN MRI: FINDINGS: Brain: There is mild diffuse atrophy. There is no evidence of acute stroke. There is bright signal intensity in the deep white matter along the lateral ventricles consistent with chronic ischemic change. A demyelinating process could given identical appearance. Causes of demyelination in this age group would include lupus, collagen vascular disease and glucan cephalopathy caused by a viral etiology. Paranasal sinuses: Clear paranasal sinuses. Mastoid air cells: Clear mastoid air cells. Orbits: Unremarkable. Soft tissues: Unremarkable. IMPRESSION: 1. No evidence of acute stroke. 2. Bright signal intensity along the lateral ventricles is consistent with chronic ischemic changes. CAROTID DUPLEX US: FINDINGS: Two-dimensional warner scale and color images demonstrate normal arterial lumen with laminar flow and no appreciable narrowing. Color Doppler interrogation demonstrates normal arterial wave patterns and velocities with no significant spectral broadening. Normal flow direction is appreciated in the left vertebral artery while the right vertebral artery is not identified. ICA peak systolic velocity: Right 101 cm/s; Left 93.5 cm/s ICA diastolic velocity: Right 26.1 cm/s; Left 14.5 cm/s ECA peak systolic velocity: Right 110 cm/s; Left 111 cm/s CCA peak systolic velocity: Right 117 cm/s; Left 97.1 cm/s ICA/CCA ratio: Right 0.86 cm/s; Left 0.96 cm/s IMPRESSION: No hemodynamically significant areas of narrowing or stenosis appreciated. Based on set standards narrowing falls within the normal/less than 50% range. PROGNOSIS: fair ACTIVITY: [As tolerated]. DIET: consistent carb DISCHARGE PLAN: Follow up with PCP, Neurology and Cardiology on discharge Remain compliant with treatment plan and medications Return to the ER if you experience any problems DISPOSITION: Home DISCHARGE INSTRUCTIONS: 1. Follow-up with PCP within 14 days 2. Referral to neurology, cardiology ITEMS TO FOLLOWUP ON ON OUTPATIENT: 1. Echocardiogram results DISCHARGE CONDITION: [Stable]. TIME SPENT ON DISCHARGE: Greater than 45 minutes. Vital Signs/I&Os Vital Signs Date Time Temp Pulse Resp B/P (MAP) Pulse Ox O2 Delivery O2 Flow Rate FiO2 11/10/20 09:00 68 131/86 (101) 70 131/87 (102) 82 124/73 (90) 11/10/20 06:00 98.0 20 97 11/09/20 19:00 Room Air I&O- Last 24 Hours up to 6 AM 11/10/20 06:00 Intake Total 510 ml Output Total 650 ml Balance -140 ml Laboratory Data Labs 24H Laboratory Tests 2 11/09/20 21:17: Bedside Glucose (Misc Panel) 199H 11/10/20 05:27: Nucleated Red Blood Cells % (auto) 0.0, Anion Gap 6L, Glomerular Filtration Rate 30.5L, Calcium Level 8.2L, Magnesium Level 2.1 11/10/20 11:20: Bedside Glucose (Misc Panel) 180H CBC/BMP Laboratory Tests 11/10/20 05:27 FSBS Laboratory Tests Test 11/09/20 21:17 11/10/20 11:20 Range/Units Bedside Glucose (Misc Panel) 199 180 83-110 MG/DL Discharge Medications Scheduled Apixaban (Eliquis) 2.5 Mg Tab, 2.5 MG PO BID, (Reported) Calcitriol (Calcitriol) 0.25 Mcg Capsule, 0.25 MCG PO 3XW, (Reported) MON/WED/FRI MORNINGS Cetirizine HCl (Cetirizine HCl) 10 Mg Tablet, 10 MG PO DAILY, (Reported) TAKES AT NOON Cholecalciferol (Vitamin D3) (Vitamin D3) 1,000 Unit Tablet, 500 UNITS PO DAILY, (Reported) Donepezil HCl (Aricept) 10 Mg Tab, 10 MG PO DAILY, (Reported) TAKES AT NOON Esomeprazole Magnesium (Esomeprazole Magnesium Dr) 40 Mg Capsule.dr, 40 MG PO DAILY, (Reported) TAKES AT NOON Glimepiride (Glimepiride) 4 Mg Tablet, 4 MG PO BID, (Reported) Magnesium Oxide (Magnesium Oxide) 400 Mg Tablet, 400 MG PO DAILY, (Reported) Potassium Chloride (Klor-Con M20) 20 Meq Tabcr, 10 MEQ PO QHS, (Reported) Simvastatin (Simvastatin) 40 Mg Tab, 40 MG PO QHS, (Reported) Sitagliptin Phosphate (Januvia) 100 Mg Tab, 50 MG PO DAILY, (Reported) Tamsulosin HCl (Flomax) 0.4 Mg Cap, 0.4 MG PO DAILY, (Reported) Allergies Coded Allergies: MASON Inhibitors (Verified Allergy, Severe, face swelling, 03/15/19) lisinopril (Verified Allergy, Severe, face swelling, 03/07/19) valsartan (Verified Allergy, Severe, face swelling, 03/07/19) Aminoglycosides (Verified Allergy, Intermediate, rash, 03/07/19) bacitracin (Verified Allergy, Intermediate, rash, 03/07/19) neomycin (Verified Allergy, Intermediate, rash, 03/07/19) ARB-Angiotensin Receptor Antagonist (Verified Allergy, Unknown, 03/07/19) polymyxin B (Verified Allergy, Unknown, RASH, 03/07/19) GME ATTESTATION GME ATTESTATION My faculty preceptor for this patient encounter was physically present during the encounter and was fully available. All aspects of the patient interview, examination, medical decision making process, and medical care plan development were reviewed and approved by the faculty preceptor. The faculty preceptor is aware and concurs with the plan as stated in the body of this note and will attest to such by his/her cosignature. ATTENDING NOTE I, Elena Stern, have independently examined this patient and performed my own physical exam, as well as reviewed the documentation and edited where necessary. I have discussed in detail with the resident / student the findings and plan of treatment as documented by the resident / student and edited their note. I agree with their findings and treatment plan and have edited their documentation. I will continue to follow the patient during this hospital stay. Time spent on discharge 37 minutes MIKE GOLD MD Nov 10, 2020 13:58 ELENA STERN MD Nov 10, 2020 16:57
--- NOTE | 2020-11-11 10:15 | ECGEPIP ---
[facility] - ED Test Date: 2020-11-09 Pat Name: MARIO HASKINS Department: Room: - Gender: Male Mental Health Nurse: MARQUISE : [id number] Requested By: DEVIKA AL Order Number: [id number] Reading MD: Christian Devine Measurements Intervals [place] Rate: 66 P: 82 HI: 242 QRS: 23 QRSD: 85 T: 89 QT: 400 QTc: 419 Interpretive Statements SINUS RHYTHM WITH SINUS ARRHYTHMIA WITH FIRST DEGREE AV BLOCK LOW QRS VOLTAGE IN EXTREMITY LEADS Nonspecific T wave abnormality Similar to tracing done 08-30-20 Electronically Signed on 11-11-2020 10:15:13 EST by Christian Devine
--- NOTE | 2020-11-12 10:33 | ECHO ---
DATE OF PROCEDURE: 11/10/2020 Age: 89 Gender: Male Height: 72 inches Weight: 169 pounds Body surface area: 1.99 m2 PATIENT LOCATION: Inpatient [address] [place] [address], Room 4216 REFERRING PHYSICIAN: Elena Stern M.D. INDICATION: Syncope. MEASUREMENTS: 2D Measurements: RV 3.5 cm LV 4.6 cm Septum 1.0 cm Posterior wall 1.0 cm Aortic Root 3.4 cm LA 3.6 cm LVEF 75% Doppler Measurements: AV 1.15 m/s LVOT 0.81 cm LVOT diameter 2.0 cm MV-E 51, A 76, E/A ratio 0.7 Early mitral deceleration time 301 msec E prime medial 7.9, A prime medial 7, E prime lateral 9.7 PV 0.9 m/s Pulmonary artery acceleration time 108 msec RVSP 39 mmHg IVC 1.8 cm COMMENTS: Normal sinus rhythm without intraventricular conduction disturbance. M-mode and two-dimensional echocardiography was performed with pulse, continuous wave, color flow, and tissue Doppler studies. Normal left ventricular size, wall thickness, and hyperkinetic wall motion. Normal left atrial size with grade 1 LV diastolic dysfunction, but currently normal estimated mean left atrial pressure (findings within normal limits for age). Normal right heart chamber sizes and motion with Doppler evidence of mild pulmonary hypertension. Normal IVC size and collapse against an elevated central venous pressure. Normal aortic dimensions. Mild aortic valvular sclerosis without stenosis or insufficiency. Normal appearing mitral valve apparatus and leaflet excursion with no posterior systolic buckling. Trace mitral insufficiency. Normal appearing tricuspid valve with very mild tricuspid insufficiency. No apparent intracardiac mass or pericardial effusion. MTDD
== END 2020-11-10 15:49 | disposition home or self-care (01) ==
LOC: EDBD 09:54 → M ED 09:54 → M ED INP 09:55 → M MSPAV 18:36
PROVIDERS: ADMIT Internal Medicine; ATTEND Internal Medicine
DX: R55 Syncope and collapse (principal); I10 Essential (primary) hypertension; E11.9 Type 2 diabetes mellitus without complications; E78.49 Other hyperlipidemia; K21.9 Gastro-esophageal reflux disease without esophagitis; I48.20 Chronic atrial fibrillation, unspecified; Z79.01 Long term (current) use of anticoagulants; N18.30 Chronic kidney disease, stage 3 unspecified; Z79.899 Other long term (current) drug therapy; Z87.891 Personal history of nicotine dependence; Z90.5 Acquired absence of kidney; Z85.46 Personal history of malignant neoplasm of prostate; Z85.528 Personal history of other malignant neoplasm of kidney; Z92.3 Personal history of irradiation
CPT/HCPCS: 36415; 70450; 70544; 70551; 71045; 80047; 80048; 82550; 82553; 83605; 83735; 84443; 84484; 85025; 85027; 85610; 85730; 86850; 86900; 86901; 87631; 93005; 93041; 93306; 93880; 94760; 97161; 97165; 97530; 99285; G0378

== ENCOUNTER 2020-11-27 14:02 | Outpatient (RCR) | payer MEDICARE, OTHER ==
[~2020-11-27 14:02] MED LIST changes: -CALCITRIOL 0.25 MCG CAP (S0169) PO SCH; +CETI-24 PO; +D31000TA2 PO; +ESOM40CA35 PO; +GLIM4TAB5 PO; +MAGN400T3 PO
[2020-11-30] MEDS ORDERED: LIDO2.5C15 TOP (14:52)
== END 2020-11-29 ==
LOC: M ONCR 14:02
PROVIDERS: ATTEND General Practice
DX: C44.311 Basal cell carcinoma of skin of nose (principal)

== ENCOUNTER → 2020-12-21 | Outpatient (REF) | payer MEDICARE, OTHER ==
[~2020-12-21] MED LIST changes: +CEPH500C PO; +HYDR-3490 PO; -HYDR25TAB PO; +LIDO2.5C15 TOP; +PREDOPD OS
[2020-12-21 15:55] LABS: HEMOGLOBIN A1c 8.2 %
[2020-12-21 16:09] LABS: ALBUMIN 3.7 GM/DL (3.2-5.2); BILIRUBIN,TOTAL 0.7 MG/DL (0.2-1.0); CHOLESTEROL RISK RATIO 3.595 (<5); CREATININE FOR GFR 2.17 MG/DL (0.70-1.30); GLOMERULAR FILTRATION RATE 30.6 (>35); THYROID STIMULATING HORMONE 2.29 uIU/ML (0.358-3.740); TOTAL PROTEIN 7.1 GM/DL (6.4-8.2)
== END ==
LOC: M PLALAB 12:59
PROVIDERS: ATTEND Internal Medicine
DX: I12.9 Hypertensive chronic kidney disease with stage 1 through stage 4 chronic kidney disease, or unspecified chronic kidney disease (principal); E11.9 Type 2 diabetes mellitus without complications; E78.00 Pure hypercholesterolemia, unspecified; R79.89 Other specified abnormal findings of blood chemistry

== ENCOUNTER 2020-12-22 13:57 | Outpatient (RCR) | payer MEDICARE, OTHER ==
[~2020-12-22 13:57] MED LIST changes: +ASPI-569 PO; -ASPI81TAEC PO
== END 2020-12-27 ==
LOC: M ONCR 13:57
PROVIDERS: ATTEND General Practice
DX: C44.311 Basal cell carcinoma of skin of nose (principal)

== ENCOUNTER → 2021-01-13 | Outpatient (CLI) | payer MEDICARE, OTHER ==
--- NOTE | 2021-01-13 14:21 | RADENCPD ---
Date/Time of Encounter Date of Encounter: Jan 13, 2021 Time of Encounter: 14:16 Encounter Gt came in for a brief follow up today to assess the progress of his nasal lesion and healing of CTCAE grade 2 radiation dermatitis overlying the treatment site. He reports he is feeling well aside from having recently recovered from a URI. He has persistent post nasal drip. No further epistaxis. No pain or lacrimation. On exam the nasal tip is covered with normal appearing mildly hyperpigmented skin, there is no trace of the BCC lesion remaining. Superiorly there is mild persistent dry desquamation and active re-epithelialization. The BL nares are patent with normal appearing mucosa, no erythema or dried blood. Assessment: Resolution of nasal lesion, healing RT dermatitis. No signs of infection. Excellent cosmesis. Plan: He will return in ~ 5 months (6 months post-tx) for follow up. He may call in the interim if there are questions or concerns. Also encouraged him to keep scheduled follow up with dermatology for periodic skin exams. SHIRA SPEARS MD Jan 13, 2021 14:20
== END ==
LOC: M ONCR 13:42
PROVIDERS: ATTEND General Practice
DX: C44.311 Basal cell carcinoma of skin of nose (principal)

== ENCOUNTER → 2021-01-15 | Outpatient (REF) | payer MEDICARE, OTHER | LOC: M SFHCLERA 14:22 | PROVIDERS: ATTEND Nurse Practitioner Family | DX: J06.9 Acute upper respiratory infection, unspecified (principal); Z20.822 Contact with and (suspected) exposure to COVID-19 ==

== ENCOUNTER → 2021-01-15 | Outpatient (REF) | payer MEDICARE, OTHER | LOC: M SFHCLERA 17:09 | PROVIDERS: ATTEND Nurse Practitioner Family | DX: J06.9 Acute upper respiratory infection, unspecified (principal); Z20.822 Contact with and (suspected) exposure to COVID-19 ==

== ENCOUNTER → 2021-01-15 | Outpatient (CLI) | payer MEDICARE, OTHER ==
--- NOTE | 2021-01-15 15:55 | REP ---
INDICATION: WHEEZING. COMPARISON: Comparison chest x-ray November 09, 2020. TECHNIQUE: Two views.. FINDINGS: The lungs are well inflated and free of infiltrate. The pleural angles are sharp. The heart size is normal. Pulmonary vasculature is not increased. No significant bony abnormality is seen. There are degenerative changes in the thoracic spine. IMPRESSION: No active disease.. <Electronically signed by Angelo Dotson > 01/15/21 [id number]
== END ==
LOC: M RAD 14:50
PROVIDERS: ATTEND Nurse Practitioner Family
DX: M51.34 Other intervertebral disc degeneration, thoracic region (principal); R06.2 Wheezing

== ENCOUNTER → 2021-01-29 | Outpatient (REF) | payer MEDICARE, OTHER | LOC: M SMT 16:41 | PROVIDERS: ATTEND Urology | DX: C67.9 Malignant neoplasm of bladder, unspecified (principal); R39.15 Urgency of urination ==

== ENCOUNTER → 2021-03-24 | Outpatient (REF) | payer MEDICARE, OTHER ==
[~2021-03-24] MED LIST changes: +LIDO1CRE42 TOP; -LIDO2.5C15 TOP; +OMEP20TA2 PO; -OMEP20TA9 PO
[2021-03-24 16:40] LABS: HEMOGLOBIN A1c 7.5 %
== END ==
LOC: M SFHCPLAZ 11:57
PROVIDERS: ATTEND Internal Medicine
DX: E11.9 Type 2 diabetes mellitus without complications (principal)

== ENCOUNTER → 2021-04-07 | Outpatient (CLI) | payer MEDICARE, OTHER ==
[~2021-04-07] MED LIST changes: +MYRB50TA PO; +TRIA0.5O TOP; +TRIA1OI TOP
--- NOTE | 2021-04-07 11:52 | RADENCPD ---
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 He has some ongoing tenderness about the nasal bridge. No epistaxis or nasal dryness, in fact he still has continued post-nasal drip as before. On exam there is a faint scar on the left nasal tip where the lesion was. There is ongoing mild erythema of the nasal bridge BL, which is tender to touch. there is no tenderness about the tip. I think he has some ongoing post-RT skin inflammation possibly mild chondritis. I will give him a steroid cream which he can mix with lidocaine. I will see him back in 2 weeks to reassess and for formal follow up. SHIRA SPEARS MD Apr 07, 2021 11:52
== END ==
LOC: M ONCR 11:18
PROVIDERS: ATTEND General Practice
DX: C44.311 Basal cell carcinoma of skin of nose (principal); R09.82 Postnasal drip; R23.8 Other skin changes; Z92.3 Personal history of irradiation